=== PATIENT | female | born 1935 | race Caucasian/White ===

== ENCOUNTER → 2016-12-22 | Outpatient (REF) | payer MEDICARE, OTHER ==
[~2016-12-22] MED LIST: ASPI1TAB PO; CIPR500T89 PO; CYCL10TA PO; DITR1TAB PO; OMEP20CA3 PO; ONDA1TAB15 PO; OXYB10TA PO; VALS160T PO; VALS320T3 PO; VERA1TAB11 PO
[2016-12-22 12:15] LABS: BASO % 0.6 % (0.0-1.0); EOS # 0.2 K/mm3 (0.0-0.50); EOS % 2.7 % (0.0-3.0); LARGE UNSTAINED CELL # 0.1 K/mm3 (0.0-0.4); LARGE UNSTAINED CELL % 1.9 % (0.0-4.0); LYMPH # 1.7 K/mm3 (1.5-4.5); MEAN CORPUSCULAR HGB CONC 32.9 g/dl (32.0-36.5); MEAN CORPUSCULAR VOLUME 91.3 fl (80.0-96.0); MONO # 0.3 K/mm3 (0.0-0.8); MONO % 4.9 % (0.0-5.0); NEUTROPHILS # 4.2 K/mm3 (1.8-7.7); NEUTROPHILS % 63.8 % (36.0-66.0); PLATELET COUNT, AUTOMATED 225 k/mm3 (150-450); WHITE BLOOD COUNT 6.6 K/mm3 (4.0-10.0)
[2016-12-22 13:13] LABS: ALBUMIN 3.6 GM/DL (3.2-5.2); ALKALINE PHOSPHATASE 67 U/L (45-117); ALT/SGPT 15 U/L (12-78); ANION GAP 6 MEQ/L (8-16); AST/SGOT 12 U/L (15-37); BILIRUBIN,TOTAL 0.5 MG/DL (0.2-1.0); BLOOD UREA NITROGEN 18 MG/DL (7-18); CALCIUM LEVEL 8.9 MG/DL (8.8-10.2); CARBON DIOXIDE LEVEL 32 MEQ/L (21-32); CHLORIDE LEVEL 106 MEQ/L (98-107); CHOLESTEROL LEVEL 180 MG/DL (<200); CREATININE FOR GFR 0.66 MG/DL (0.55-1.02); GLOMERULAR FILTRATION RATE > 60.0 (>39); GLUCOSE, FASTING 84 MG/DL (83-110); SODIUM LEVEL 144 MEQ/L (136-145); TOTAL PROTEIN 7.2 GM/DL (6.4-8.2); TRIGLYCERIDES LEVEL 74 MG/DL (<150)
== END ==
LOC: M SFHCPLAZ 10:11
PROVIDERS: ATTEND Nurse Practitioner Family
DX: I10 Essential (primary) hypertension (principal); M47.816 Spondylosis without myelopathy or radiculopathy, lumbar region

== ENCOUNTER → 2017-01-30 | Outpatient (REF) | payer MEDICARE, OTHER | LOC: M LAB REF 16:05 | PROVIDERS: ATTEND Physician Assistant | DX: J02.9 Acute pharyngitis, unspecified (principal) ==

== ENCOUNTER → 2017-02-15 | Outpatient (REF) | payer MEDICARE, OTHER ==
[~2017-02-15] MED LIST changes: +AUGM500T34 PO; +FLUT11IN INH; +FLUT1SPR2; +MULTCHW13 PO; +OXYB15TA PO; +SYST1SOL OU; +ZYRT10TA2 PO
== END ==
LOC: M SFHCPLAZ 14:58
PROVIDERS: ATTEND Physician Assistant Medical
DX: J02.9 Acute pharyngitis, unspecified (principal)

== ENCOUNTER → 2017-02-20 | Outpatient (CLI) | payer MEDICARE, OTHER ==
--- NOTE | 2017-02-20 12:52 | REP ---
Clinical: Influenza . Comparison: 03/30/2016 . Technique: PA and lateral. Findings: The mediastinum and cardiac silhouette are normal. The lung marie demonstrate chronic stable interstitial changes without acute consolidation, effusion, or pneumothorax. However, lateral view cannot exclude lower lobe infiltrate and correlation is warranted. The skeletal structures are intact and normal. Impression: Lateral view cannot exclude lower lobe infiltrate and correlation is recommended. Signed by Kenton Foote MD 02/20/2017 12:43 P
[2017-02-20 14:00] LABS: BASO % 0.2 % (0.0-1.0); EOS % 0.3 % (0.0-3.0); LARGE UNSTAINED CELL # 0.1 K/mm3 (0.0-0.4); LARGE UNSTAINED CELL % 0.7 % (0.0-4.0); LYMPH % 5.9 % (24.0-44.0); MEAN CORPUSCULAR HEMOGLOBIN 30.3 pg (27.0-33.0); MEAN CORPUSCULAR HGB CONC 33.7 g/dl (32.0-36.5); MONO # 0.5 K/mm3 (0.0-0.8); MONO % 3.1 % (0.0-5.0); NEUTROPHILS # 14.2 K/mm3 (1.8-7.7); NEUTROPHILS % 89.8 % (36.0-66.0); PLATELET COUNT, AUTOMATED 379 k/mm3 (150-450); RED CELL DISTRIBUTION WIDTH 12.4 % (11.5-14.5); WHITE BLOOD COUNT 15.9 K/mm3 (4.0-10.0)
[2017-02-20 14:26] LABS: ANION GAP 9 MEQ/L (8-16); BLOOD UREA NITROGEN 19 MG/DL (7-18); CALCIUM LEVEL 9.2 MG/DL (8.8-10.2); CARBON DIOXIDE LEVEL 29 MEQ/L (21-32); CHLORIDE LEVEL 96 MEQ/L (98-107); CREATININE FOR GFR 0.79 MG/DL (0.55-1.02); GLOMERULAR FILTRATION RATE > 60.0 (>39); GLUCOSE, FASTING 94 MG/DL (83-110); POTASSIUM SERUM 4.1 MEQ/L (3.5-5.1); SODIUM LEVEL 134 MEQ/L (136-145)
== END ==
LOC: M LAB 12:05
PROVIDERS: ATTEND Nurse Practitioner Family
DX: J45.901 Unspecified asthma with (acute) exacerbation (principal); A49.2 Hemophilus influenzae infection, unspecified site

== ENCOUNTER → 2017-02-21 | Outpatient (REF) | payer MEDICARE, OTHER | LOC: M SFHCPLAZ 11:16 | PROVIDERS: ATTEND Nurse Practitioner Family | DX: A49.2 Hemophilus influenzae infection, unspecified site (principal); Z53.8 Procedure and treatment not carried out for other reasons ==

== ENCOUNTER → 2017-02-21 | Outpatient (CLI) | payer MEDICARE, OTHER ==
[2017-02-21 12:42] LABS: ALBUMIN/GLOBULIN RATIO 0.55 (1.00-1.93); ALKALINE PHOSPHATASE 72 U/L (45-117); ALT/SGPT 20 U/L (12-78); ANION GAP 6 MEQ/L (8-16); AST/SGOT 14 U/L (15-37); BILIRUBIN,TOTAL 0.6 MG/DL (0.2-1.0); BLOOD UREA NITROGEN 17 MG/DL (7-18); CALCIUM LEVEL 9.1 MG/DL (8.8-10.2); CARBON DIOXIDE LEVEL 30 MEQ/L (21-32); CHLORIDE LEVEL 96 MEQ/L (98-107); CREATININE FOR GFR 0.82 MG/DL (0.55-1.02); GLOMERULAR FILTRATION RATE > 60.0 (>39); GLUCOSE, FASTING 104 MG/DL (83-110); POTASSIUM SERUM 3.7 MEQ/L (3.5-5.1); SODIUM LEVEL 132 MEQ/L (136-145); TOTAL PROTEIN 8.5 GM/DL (6.4-8.2)
[2017-02-21 13:08] LABS: BASO % 0.3 % (0.0-1.0); EOS # 0.1 K/mm3 (0.0-0.50); EOS % 0.4 % (0.0-3.0); LARGE UNSTAINED CELL # 0.1 K/mm3 (0.0-0.4); LARGE UNSTAINED CELL % 0.8 % (0.0-4.0); LYMPH # 1.2 K/mm3 (1.5-4.5); LYMPH % 7.3 % (24.0-44.0); MEAN CORPUSCULAR HEMOGLOBIN 30.4 pg (27.0-33.0); MEAN CORPUSCULAR VOLUME 89.4 fl (80.0-96.0); MONO # 0.6 K/mm3 (0.0-0.8); MONO % 3.5 % (0.0-5.0); NEUTROPHILS % 87.7 % (36.0-66.0); PLATELET COUNT, AUTOMATED 379 k/mm3 (150-450)
== END ==
LOC: M LAB 11:34
PROVIDERS: ATTEND Nurse Practitioner Family
DX: A49.2 Hemophilus influenzae infection, unspecified site (principal)

== ENCOUNTER 2017-02-22 12:08 | Inpatient (IN) | payer MEDICARE, OTHER ==
[~2017-02-22] VITALS: Ht 170.2 cm; Wt 58.7 kg
[~2017-02-22 12:08] MED LIST changes: -AUGM500T34 PO; +CIPR-249 PO; -CIPR500T89 PO; -FLUT11IN INH; -FLUT1SPR2; -MULTCHW13 PO; -ONDA1TAB15 PO; +ONDA4TAB5 PO; -OXYB15TA PO; -SYST1SOL OU; -ZYRT10TA2 PO
[2017-02-22] MEDS ORDERED: ACETAMINOPHEN TAB 650MG DOSE (2X325MG) PO PRN (12:15)
[2017-02-22] MEDS ORDERED: ONDANSETRON 4 MG TAB (S0181) PO PRN (12:15)
[2017-02-22] MEDS ORDERED: BISACODYL 5 MG TAB PO PRN (12:15)
[2017-02-22 12:45] VITALS: BP 146/67
[2017-02-22] MEDS: methylPREDNISolone INJ 125 MG/2 ML VIAL (J2930) IV SCH ×2 (13:50→21:37)
[2017-02-22] MEDS: ENOXAPARIN 30 MG/0.3 ML SYR (J1650) SC SCH (13:50)
[2017-02-22] MEDS: cefTRIAXone SOD 1 GM in D5W MINI-BAG PLUS 50 ML IV SCH (13:50)
[2017-02-22] MEDS ORDERED: ZYRT10TA2 PO (13:54)
[2017-02-22] MEDS ORDERED: OXYB15TA PO (13:54)
[2017-02-22] MEDS ORDERED: AUGM500T34 PO (13:54)
[2017-02-22] MEDS ORDERED: VALS160T PO (13:54)
[2017-02-22] MEDS ORDERED: FLUT11IN INH (13:54)
[2017-02-22] MEDS ORDERED: FLUT1SPR2 (13:56)
[2017-02-22] MEDS ORDERED: MULTCHW14 PO (13:56)
[2017-02-22] MEDS ORDERED: SYST1SOL OU (13:59)
[2017-02-22 14:00] VITALS: BP 141/83
[2017-02-22] MEDS ORDERED: POLYVINYL ALCOHOL OPHTH SOLN 15 ML(LIQUITEARS) OU PRN (14:15)
[2017-02-22] MEDS ORDERED: FLUTICASONE PROP 0.05% NASAL SPRAY 16 GM (FLONASE) PRN (14:15)
[2017-02-22] MEDS: IPRATROPIUM 0.5MG/ALBUTEROL 2.5MG INH SOL UD 3ML (DUONEB)(J7620) NEB SCH ×2 (15:34→20:35)
--- NOTE | 2017-02-22 15:53 | REP ---
Clinical: Left lower lobe pneumonia hypoxia. Technique: PA and lateral. Comparison: 02/20/2017. Findings: Left lower lobe and possible right middle lobe atelectasis/infiltrates are again suggested. No effusion. No pneumothorax. Underlying chronic interstitial changes noted. Skeletal structures demonstrate osteopenia and degenerative changes. Impression: Continued evidence for left lower lobe and possible right middle lobe atelectasis/infiltrate. Signed by Kenton Foote MD 02/22/2017 03:39 P
[2017-02-22] MEDS: ASPIRIN 81 MG ENTERIC TAB PO SCH (16:05)
[2017-02-22] MEDS: oxyBUTYnin *DITROPAN XL* 5 MG TABCR PO SCH (16:06)
[2017-02-22] MEDS: CETIRIZINE (ZyrTEC) 10 MG TAB PO SCH (16:06)
[2017-02-22] MEDS: VERAPAMIL 180 MG SR TAB PO SCH (16:08)
[2017-02-22] MEDS: FLUTICASONE HFA 110 MCG 12 GM INHALER (FLOVENT) INH SCH (20:34)
[2017-02-22 20:50] VITALS: BP 134/69
--- NOTE | 2017-02-22 20:54 | HPE ---
DATE OF PROCEDURE: 02/22/2017 ATTENDING PHYSICIAN: Dr. Kurtis Coronado HISTORY OF THE PRESENT ILLNESS: This is a very pleasant 81-year-old female who has been complaining of upper respiratory illness since 02/09/2017. She has had multiple outpatient visits in the office with adjustments in her inhaler, as well as a trial of penicillin as an outpatient, as well as Augmentin. The patient was evaluated by myself on 02/20/2017. The patient's sputum culture returned positive for Haemophilus influenza. The patient's penicillin was changed over to amoxicillin with clavulanic acid and a chest x-ray was obtained. At that time, the patient was shown to have a potential left lower lobe pneumonia on the lateral view of her chest x-ray, was asked to return the following day with lab work. Initial set of labs on 02/20/2017 showed some hyponatremia with a sodium level of 134 and a white blood cell count of 15.9 with a shift. The patient's labs were repeated on 02/21/2017 and at that time, the patient's sodium level did lower to 132 and white blood cell count did mildly increase to 16,000. The patient was advised no free water and to not withhold her sodium. She was advised to hold her losartan with hydrochlorothiazide, she was mildly hypotensive in the office. The patient was advised to followup today with me in the office. Today, the patient states she is not improving, she is having increasing dyspnea and tachycardia, feeling heart palpitations with exertion. Denies fevers but does admit to significant amounts of fatigue and lethargy with shortness of breath and wheezing. On initial presentation to the office today, the patient's oxygen saturation dropped to 88% on room air. It did recover with rest. However, she was significantly tachycardic in the 120s with exertion. The patient does have a low-grade temperature of 99.1, with a mild improvement today of 98.5. The patient was deemed appropriate for admission as an inpatient as she has failed outpatient treatment and is now with hypoxia. PAST MEDICAL HISTORY: Significant for: 1. Hypertension. 2. Overactive bladder. 3. Osteopenia. 4. Stable pulmonary nodule on repeat CT scan. 5. Seasonal asthma with allergies. 6. Dry eye. 7. Venous insufficiency to left lower extremity. CURRENT MEDICATIONS: - Augmentin 500-125 one by mouth every 8 hours - DuoNeb every 6 hours - valsartan with hydrochlorothiazide 160-12.5 one by mouth daily - omeprazole 40 mg by mouth twice a day - Ventolin HFA two puffs every 4 hours as needed for shortness of breath - cetirizine 10 mg by mouth once daily. - Flovent 110 mcg one puff twice per day - aspirin 81 mg chewable one by mouth daily - gummy bear multivitamin one tablet daily - MiraLAX one packet mixed with 8 ounces of fluid once daily as needed - calcium with vitamin D 600-500 mg by mouth twice a day - oxybutynin chloride ER 10 mg by mouth daily - verapamil ER 180 mg by mouth daily - Patanol eye drops to each eye daily - fluticasone 50 mcg nasal spray one spray each nostril twice a day PAST SURGICAL HISTORY: Significant for: 1. Colonoscopy with Dr. Garnett in 2010. 2. Cyst removed from ankle and lower leg in 2011. 3. Cystoscopy. 4. Esophagogastroduodenoscopy (EGD) in July of [address] Ridley. HOSPITALIZATIONS: Include: Previous hospitalization March of 2016. The patient had a urinary tract infection (UTI) and significant hyponatremia at that time. FAMILY HISTORY: Father at 78 years of age due to kidney failure. Mother at 81 years of age due to cerebrovascular disease. Siblings have a history of cardiac disease. SOCIAL HISTORY: The patient is a former smoker, has not smoked cigarettes in well over 10 years. The patient drinks alcohol on a social basis, one to two drinks, two to three times per week. Denies recreational drug use. Uses one to two cups of coffee per day. Lives with her . Eats a regular diet. Walks routinely and remains very active. On physical exam, weight 126 pounds, height 67 inches, blood pressure 132/76, heart rate 126, oxygen saturation 88% with exertion, 91% resting on room air. Labs from 02/21/2017 as already stated with a white blood cell count of 16,000, neutrophils 87%. CMP shows a glucose of 104, BUN 17, creatinine 0.82, sodium level of 132, LFTs are within normal limits. General: Patient is ill appearing, however, is in no acute distress. Does appear tachypneic and mildly dyspneic. Cardiovascular: Heart rate and rhythm are regular. Pulmonary: Lungs are diminished throughout. Abdomen: Soft and nontender with positive bowel sounds times all four quadrants. Bilateral lower extremities are without any edema. Neurologic: The patient is alert and oriented, has no resting tremor appreciated. ASSESSMENT: 1. Haemophilus influenza pneumonia. 2. Hyponatremia. 3. Asthma exacerbation. SECONDARY DIAGNOSES: 1. Hypertension. 2. Allergies. 3. Overactive bladder. PLAN: The patient will be admitted with an expected two-midnight stay. She will be placed on ceftriaxone 1 gram IV every 24 hours, Tylenol as needed for pain or fever, DuoNebs every 6 hours ordered. She was placed on Solu-Medrol 80 mg IV every 8 hours. DVT prophylaxis - Lovenox 30 mg subcutaneously daily. Zofran ordered as needed for any potential nausea or vomiting. Routine medications will be continued except for her valsartan with hydrochlorothiazide secondary to her hyponatremia. Diet is a regular diet with a 1200 mL fluid restriction secondary to her hyponatremia. The patient will have a repeat chest x-ray and labs completed today. This case was discussed with Dr. Kurtis Coronado. The patient was brought to the hospital directly from the office by her in personally owned vehicle (POV). The patient verbalized understanding and agreement with plan.
[2017-02-23] MEDS: IPRATROPIUM 0.5MG/ALBUTEROL 2.5MG INH SOL UD 3ML (DUONEB)(J7620) NEB SCH ×4 (01:51→19:55)
[2017-02-23] MEDS: methylPREDNISolone INJ 125 MG/2 ML VIAL (J2930) IV SCH ×3 (05:35→21:10)
[2017-02-23 06:00] VITALS: BP 116/63
[2017-02-23 06:08] LABS: BASO % 0.1 % (0.0-1.0); EOS % 0.1 % (0.0-3.0); LARGE UNSTAINED CELL % 0.5 % (0.0-4.0); LYMPH # 0.6 K/mm3 (1.5-4.5); LYMPH % 8.2 % (24.0-44.0); MEAN CORPUSCULAR HEMOGLOBIN 30.2 pg (27.0-33.0); MEAN CORPUSCULAR VOLUME 88.8 fl (80.0-96.0); MONO # 0.1 K/mm3 (0.0-0.8); MONO % 1.3 % (0.0-5.0); NEUTROPHILS # 5.9 K/mm3 (1.8-7.7); NEUTROPHILS % 89.8 % (36.0-66.0); PLATELET COUNT, AUTOMATED 346 k/mm3 (150-450); RED CELL DISTRIBUTION WIDTH 12.2 % (11.5-14.5); WHITE BLOOD COUNT 6.6 K/mm3 (4.0-10.0)
[2017-02-23] MEDS: FLUTICASONE HFA 110 MCG 12 GM INHALER (FLOVENT) INH SCH ×2 (07:36→19:55)
[2017-02-23 07:43] LABS: ALBUMIN 2.9 GM/DL (3.2-5.2); ALBUMIN/GLOBULIN RATIO 0.53 (1.00-1.93); ALKALINE PHOSPHATASE 78 U/L (45-117); ALT/SGPT 25 U/L (12-78); ANION GAP 9 MEQ/L (8-16); AST/SGOT 13 U/L (15-37); BILIRUBIN,TOTAL 0.2 MG/DL (0.2-1.0); BLOOD UREA NITROGEN 19 MG/DL (7-18); CALCIUM LEVEL 9.7 MG/DL (8.8-10.2); CARBON DIOXIDE LEVEL 27 MEQ/L (21-32); CHLORIDE LEVEL 103 MEQ/L (98-107); CREATININE FOR GFR 0.82 MG/DL (0.55-1.02); GLOMERULAR FILTRATION RATE > 60.0 (>39); GLUCOSE, FASTING 175 MG/DL (83-110); MAGNESIUM LEVEL 2.3 MG/DL (1.8-2.4); POTASSIUM SERUM 4.3 MEQ/L (3.5-5.1); SODIUM LEVEL 139 MEQ/L (136-145); TOTAL PROTEIN 8.4 GM/DL (6.4-8.2)
[2017-02-23] MEDS: ENOXAPARIN 30 MG/0.3 ML SYR (J1650) SC SCH (09:07)
[2017-02-23] MEDS: ASPIRIN 81 MG ENTERIC TAB PO SCH (09:10)
[2017-02-23] MEDS: VERAPAMIL 180 MG SR TAB PO SCH (09:10)
[2017-02-23] MEDS: oxyBUTYnin *DITROPAN XL* 5 MG TABCR PO SCH (09:11)
[2017-02-23] MEDS: CETIRIZINE (ZyrTEC) 10 MG TAB PO SCH (09:11)
--- NOTE | 2017-02-23 12:10 | IPNPDOC ---
Subjective Date Seen The patient was seen on 02/23/17. Subjective Chief Complaint/HPI The patient is a 81-year-old female admitted with a reason for visit of Pneumonia. Events since last encounter Pt this morning is feeling better. less SOB, less cough, does have sputum production with cough. Denies fevers or chills. General: Denies: Fatigue Constitutional: Denies: Chills, Fever Pulmonary: Reports: Dyspnea, Cough Cardiovascular: Denies: Chest Pain, Palpitations Gastrointestinal: Denies: Nausea, Vomiting, Diarrhea Neurological: Reports: Weakness Psych: Reports: Mood Normal Objective Physical Examination General Exam: Positive: Alert, No Acute Distress ENT Exam: Positive: Mucous membr. moist/pink Chest Exam: Positive: Rhonchi (LLL), Wheezing, Negative: Clear to auscultation, Normal air movement Abdomen Exam: Positive: Normal bowel sounds, Soft, Negative: Tenderness Extremity Exam: Negative: Edema Psych Exam: Positive: Mental status NL, Mood NL Assessment /Plan Problems (1) Haemophilus influenzae pneumonia Status: Acute Discussed With: Nurse, Patient Problem Specific Plan: Monitor Clinically, Repeat Labs Problem Text: Has failed to improved as outpt, had been on PCN, then Augmentin , started on Rocephin IV. Cont with Duonebs. Blood culture pending, afebrile, WBC has normalized 02/22 CXR LLL, RML PN 02/15/17 SCX H influenzae sens to amox/clav (2) Asthma exacerbation Status: Acute Response to Treatment: Stable, Improving Discussed With: Patient Problem Specific Plan: Monitor Clinically Problem Text: Cont with Solumedrol 80 mg q8h, anticipate that this can be decreased tomorrow. (3) Hyponatremia Status: Resolved Response to Treatment: Stable Problem Text: Na 139 this morning. Plan/VTE VTE Prophylaxis Ordered?: Yes VS, I&O, 24H, Fishbone Vital Signs/I&O Vital Signs Date Time Temp Pulse Resp B/P (MAP) Pulse Ox O2 Delivery O2 Flow Rate FiO2 02/23/17 09:20 Room Air 02/23/17 09:10 105 128/74 02/23/17 06:00 98.1 18 95 I&O- Last 24 Hours up to 6 AM 02/23/17 05:59 Intake Total 480 ml Output Total 550 ml Balance -70 ml Laboratory Data 24H LABS Laboratory Tests 2 02/23/17 05:33: White Blood Count 6.6, Red Blood Count 4.16, Hemoglobin 12.6, Hematocrit 36.9, Mean Corpuscular Volume 88.8, Mean Corpuscular Hemoglobin 30.2, Mean Corpuscular Hemoglobin Concent 34.0, Red Cell Distribution Width 12.2, Platelet Count 346, Neutrophils (%) (Auto) 89.8H, Lymphocytes (%) (Auto) 8.2L, Monocytes (%) (Auto) 1.3, Eosinophils (%) (Auto) 0.1, Basophils (%) (Auto) 0.1, Neutrophils # (Auto) 5.9, Lymphocytes # (Auto) 0.6L, Monocytes # (Auto) 0.1, Eosinophils # (Auto) 0.0, Basophils # (Auto) 0.0, Large Unclassified Cells % 0.5 , Large Unclassified Cells # 0.0, Anion Gap 9, Glomerular Filtration Rate > 60.0 , Blood Urea Nitrogen 19H, Creatinine 0.82, Sodium Level 139#, Potassium Level 4.3, Chloride Level 103, Carbon Dioxide Level 27, Calcium Level 9.7, Aspartate Amino Transf (AST/SGOT) 13L, Alanine Aminotransferase (ALT/SGPT) 25, Alkaline Phosphatase 78, Total Bilirubin 0.2#, Total Protein 8.4H, Albumin 2.9L, Magnesium Level 2.3, Albumin/Globulin Ratio 0.53L CBC/BMP Laboratory Tests 02/23/17 05:33 Red Blood Count 4.16, Mean Corpuscular Volume 88.8, Mean Corpuscular Hemoglobin 30.2, Mean Corpuscular Hemoglobin Concent 34.0, Red Cell Distribution Width 12.2 , Neutrophils (%) (Auto) 89.8 H, Lymphocytes (%) (Auto) 8.2 L, Monocytes (%) ( Auto) 1.3, Eosinophils (%) (Auto) 0.1, Basophils (%) (Auto) 0.1, Neutrophils # ( Auto) 5.9, Lymphocytes # (Auto) 0.6 L, Monocytes # (Auto) 0.1, Eosinophils # ( Auto) 0.0, Basophils # (Auto) 0.0, Calcium Level 9.7, Aspartate Amino Transf ( AST/SGOT) 13 L, Alanine Aminotransferase (ALT/SGPT) 25, Alkaline Phosphatase 78 , Total Bilirubin 0.2 #, Total Protein 8.4 H, Albumin 2.9 L Microbiology Microbiology 02/22/17 Blood Culture, Received Pending QUINTIN ERWIN PA-C Feb 23, 2017 12:10 Kurtis Coronado M.D. Feb 23, 2017 17:11
[2017-02-23] MEDS: cefTRIAXone SOD 1 GM in D5W MINI-BAG PLUS 50 ML IV SCH (13:47)
[2017-02-23 14:00] VITALS: BP 140/64
[2017-02-23 21:15] VITALS: BP 118/57
[2017-02-24] MEDS: IPRATROPIUM 0.5MG/ALBUTEROL 2.5MG INH SOL UD 3ML (DUONEB)(J7620) NEB SCH ×4 (01:02→19:42)
[2017-02-24 05:35] VITALS: BP 165/73
[2017-02-24] MEDS: methylPREDNISolone INJ 125 MG/2 ML VIAL (J2930) IV SCH (05:42)
[2017-02-24 06:31] LABS: EOS % 0.1 % (0.0-3.0); LARGE UNSTAINED CELL # 0.1 K/mm3 (0.0-0.4); LARGE UNSTAINED CELL % 0.4 % (0.0-4.0); LYMPH # 0.9 K/mm3 (1.5-4.5); MEAN CORPUSCULAR HEMOGLOBIN 30.1 pg (27.0-33.0); MEAN CORPUSCULAR HGB CONC 33.7 g/dl (32.0-36.5); MEAN CORPUSCULAR VOLUME 89.4 fl (80.0-96.0); MONO # 0.3 K/mm3 (0.0-0.8); MONO % 1.2 % (0.0-5.0); NEUTROPHILS # 21.8 K/mm3 (1.8-7.7); NEUTROPHILS % 94.3 % (36.0-66.0); PLATELET COUNT, AUTOMATED 421 k/mm3 (150-450); RED CELL DISTRIBUTION WIDTH 12.2 % (11.5-14.5); WHITE BLOOD COUNT 23.1 K/mm3 (4.0-10.0)
[2017-02-24 07:05] LABS: ALBUMIN 2.9 GM/DL (3.2-5.2); ALBUMIN/GLOBULIN RATIO 0.57 (1.00-1.93); ALKALINE PHOSPHATASE 79 U/L (45-117); ALT/SGPT 23 U/L (12-78); ANION GAP 7 MEQ/L (8-16); AST/SGOT 12 U/L (15-37); BILIRUBIN,TOTAL 0.2 MG/DL (0.2-1.0); BLOOD UREA NITROGEN 27 MG/DL (7-18); CALCIUM LEVEL 9.5 MG/DL (8.8-10.2); CARBON DIOXIDE LEVEL 28 MEQ/L (21-32); CHLORIDE LEVEL 104 MEQ/L (98-107); CREATININE FOR GFR 0.78 MG/DL (0.55-1.02); GLOMERULAR FILTRATION RATE > 60.0 (>39); GLUCOSE, FASTING 143 MG/DL (83-110); MAGNESIUM LEVEL 2.3 MG/DL (1.8-2.4); POTASSIUM SERUM 4.9 MEQ/L (3.5-5.1); SODIUM LEVEL 139 MEQ/L (136-145)
[2017-02-24] MEDS: FLUTICASONE HFA 110 MCG 12 GM INHALER (FLOVENT) INH SCH ×2 (07:48→19:42)
[2017-02-24 09:35] VITALS: BP 138/68
[2017-02-24] MEDS: ASPIRIN 81 MG ENTERIC TAB PO SCH (09:54)
[2017-02-24] MEDS: oxyBUTYnin *DITROPAN XL* 5 MG TABCR PO SCH (09:54)
[2017-02-24] MEDS: CETIRIZINE (ZyrTEC) 10 MG TAB PO SCH (09:54)
[2017-02-24] MEDS: VERAPAMIL 180 MG SR TAB PO SCH (09:56)
[2017-02-24] MEDS: ENOXAPARIN 30 MG/0.3 ML SYR (J1650) SC SCH (09:57)
[2017-02-24 12:50] VITALS: BP 134/64
[2017-02-24] MEDS: predniSONE 20 MG TAB PO SCH (13:35)
[2017-02-24] MEDS: LevoFLOXacin 750 MG TABLET PO SCH (13:35)
--- NOTE | 2017-02-24 15:47 | IPNPDOC ---
Subjective Date Seen The patient was seen on 02/24/17. Subjective Chief Complaint/HPI The patient is a 81-year-old female admitted with a reason for visit of Pneumonia. Events since last encounter Patient states she's feeling well. Cough is improving. Denies any shortness of breath or wheezing. Denies fevers, chills, sweats, or chest pain. Constitutional: Denies: Chills, Fever, Malaise Pulmonary: Reports: Cough, Denies: Dyspnea Cardiovascular: Denies: Chest Pain, Palpitations Other systems 10 point review systems otherwise negative Objective Physical Examination General Exam: Positive: Alert, No Acute Distress ENT Exam: Positive: Mucous membr. moist/pink Chest Exam: Negative: Clear to auscultation, Normal air movement, Rhonchi, Wheezing Abdomen Exam: Positive: Normal bowel sounds, Soft, Negative: Tenderness Extremity Exam: Negative: Edema Psych Exam: Positive: Mental status NL, Mood NL Assessment /Plan Problems (1) Haemophilus influenzae pneumonia Status: Acute Discussed With: Nurse, Patient Problem Specific Plan: Monitor Clinically, Repeat Labs Problem Text: Pneumonia continues to improve. Transition to oral prednisone and Levaquin. Plan for discharge tomorrow (2) Asthma exacerbation Status: Acute Response to Treatment: Stable, Improving Discussed With: Patient Problem Specific Plan: Monitor Clinically Problem Text: Transition to by mouth prednisone 60 mg daily in anticipation for discharge (3) Hyponatremia Status: Resolved Response to Treatment: Stable Problem Text: Likely secondary to pneumonia, now resolved. Plan/VTE VTE Prophylaxis Ordered?: Yes Disposition Plan for discharge 02/25/2017 VS, I&O, 24H, Fishbone Vital Signs/I&O Vital Signs Date Time Temp Pulse Resp B/P (MAP) Pulse Ox O2 Delivery O2 Flow Rate FiO2 02/24/17 12:50 98.6 78 16 134/64 (87) 96 Room Air I&O- Last 24 Hours up to 6 AM 02/24/17 06:00 Intake Total 1250 ml Output Total 1025 ml Balance 225 ml Laboratory Data 24H LABS Laboratory Tests 2 02/24/17 06:02: White Blood Count 23.1H, Red Blood Count 3.95L, Hemoglobin 11.9L, Hematocrit 35.3L, Mean Corpuscular Volume 89.4, Mean Corpuscular Hemoglobin 30.1, Mean Corpuscular Hemoglobin Concent 33.7, Red Cell Distribution Width 12.2, Platelet Count 421, Neutrophils (%) (Auto) 94.3H, Lymphocytes (%) (Auto) 4.0L, Monocytes (%) (Auto) 1.2, Eosinophils (%) (Auto) 0.1, Basophils (%) (Auto) 0.0, Neutrophils # (Auto) 21.8H, Lymphocytes # (Auto) 0.9L, Monocytes # (Auto) 0.3, Eosinophils # (Auto) 0.0, Basophils # (Auto) 0.0, Large Unclassified Cells % 0.4 , Large Unclassified Cells # 0.1, Anion Gap 7L, Glomerular Filtration Rate > 60.0, Blood Urea Nitrogen 27H, Creatinine 0.78, Sodium Level 139, Potassium Level 4.9, Chloride Level 104, Carbon Dioxide Level 28, Calcium Level 9.5, Aspartate Amino Transf (AST/SGOT) 12L, Alanine Aminotransferase (ALT/SGPT) 23, Alkaline Phosphatase 79, Total Bilirubin 0.2, Total Protein 8.0, Albumin 2.9L, Magnesium Level 2.3, Albumin/Globulin Ratio 0.57L CBC/BMP Laboratory Tests 02/24/17 06:02 Red Blood Count 3.95 L, Mean Corpuscular Volume 89.4, Mean Corpuscular Hemoglobin 30.1, Mean Corpuscular Hemoglobin Concent 33.7, Red Cell Distribution Width 12.2, Neutrophils (%) (Auto) 94.3 H, Lymphocytes (%) (Auto) 4.0 L, Monocytes (%) (Auto) 1.2, Eosinophils (%) (Auto) 0.1, Basophils (%) (Auto ) 0.0, Neutrophils # (Auto) 21.8 H, Lymphocytes # (Auto) 0.9 L, Monocytes # ( Auto) 0.3, Eosinophils # (Auto) 0.0, Basophils # (Auto) 0.0, Calcium Level 9.5, Aspartate Amino Transf (AST/SGOT) 12 L, Alanine Aminotransferase (ALT/SGPT) 23, Alkaline Phosphatase 79, Total Bilirubin 0.2, Total Protein 8.0, Albumin 2.9 L Microbiology Microbiology 02/22/17 Blood Culture - Preliminary, Resulted No Growth after 48 hours. All Specime... VIKI PAIZ MD Feb 24, 2017 15:47
[2017-02-24 22:00] VITALS: BP 124/59
[2017-02-25] MEDS: IPRATROPIUM 0.5MG/ALBUTEROL 2.5MG INH SOL UD 3ML (DUONEB)(J7620) NEB SCH ×3 (01:25→13:26)
[2017-02-25] MEDS: LevoFLOXacin 750 MG TABLET PO SCH (05:30)
[2017-02-25 06:20] LABS: EOS % 0.1 % (0.0-3.0); LARGE UNSTAINED CELL # 0.1 K/mm3 (0.0-0.4); LARGE UNSTAINED CELL % 0.4 % (0.0-4.0); MEAN CORPUSCULAR HEMOGLOBIN 29.6 pg (27.0-33.0); MEAN CORPUSCULAR HGB CONC 33.1 g/dl (32.0-36.5); MEAN CORPUSCULAR VOLUME 89.5 fl (80.0-96.0); MONO # 0.4 K/mm3 (0.0-0.8); MONO % 2.3 % (0.0-5.0); NEUTROPHILS # 14.5 K/mm3 (1.8-7.7); NEUTROPHILS % 91.1 % (36.0-66.0); PLATELET COUNT, AUTOMATED 368 k/mm3 (150-450); RED CELL DISTRIBUTION WIDTH 12.5 % (11.5-14.5); WHITE BLOOD COUNT 15.9 K/mm3 (4.0-10.0)
[2017-02-25 06:36] LABS: ALBUMIN 2.6 GM/DL (3.2-5.2); ALBUMIN/GLOBULIN RATIO 0.58 (1.00-1.93); ALKALINE PHOSPHATASE 69 U/L (45-117); ALT/SGPT 20 U/L (12-78); ANION GAP 3 MEQ/L (8-16); AST/SGOT 8 U/L (15-37); BILIRUBIN,TOTAL 0.2 MG/DL (0.2-1.0); BLOOD UREA NITROGEN 25 MG/DL (7-18); CALCIUM LEVEL 9.1 MG/DL (8.8-10.2); CARBON DIOXIDE LEVEL 30 MEQ/L (21-32); CHLORIDE LEVEL 104 MEQ/L (98-107); CREATININE FOR GFR 0.67 MG/DL (0.55-1.02); GLOMERULAR FILTRATION RATE > 60.0 (>39); GLUCOSE, FASTING 122 MG/DL (83-110); MAGNESIUM LEVEL 2.1 MG/DL (1.8-2.4); POTASSIUM SERUM 4.1 MEQ/L (3.5-5.1); SODIUM LEVEL 137 MEQ/L (136-145); TOTAL PROTEIN 7.1 GM/DL (6.4-8.2)
[2017-02-25] MEDS: FLUTICASONE HFA 110 MCG 12 GM INHALER (FLOVENT) INH SCH (08:08)
[2017-02-25] MEDS: ASPIRIN 81 MG ENTERIC TAB PO SCH (09:00)
[2017-02-25] MEDS: CETIRIZINE (ZyrTEC) 10 MG TAB PO SCH (09:00)
[2017-02-25] MEDS: predniSONE 20 MG TAB PO SCH (09:00)
[2017-02-25 09:01] VITALS: BP 152/72
[2017-02-25] MEDS: VERAPAMIL 180 MG SR TAB PO SCH (09:01)
[2017-02-25] MEDS: ENOXAPARIN 30 MG/0.3 ML SYR (J1650) SC SCH (09:01)
[2017-02-25] MEDS: oxyBUTYnin *DITROPAN XL* 5 MG TABCR PO SCH (09:01)
[2017-02-25] MEDS ORDERED: LEVA750T7 PO (12:57)
[2017-02-25] MEDS ORDERED: PRED20TA PO (12:57)
--- NOTE | 2017-02-25 13:11 | DS.PDOC ---
Discharge Summary General Date of Admission Feb 22, 2017 at 12:34 Date of Discharge 02/25/17 Primary Care Physician: Yamile[facility] Daily ADMISSIONS CLERK Attending Physician: VIKI JANSEN MD Specialist/Consultants Involve None Discharge Summary PROCEDURES PERFORMED DURING STAY: None. ADMITTING DIAGNOSES: 1. Haemophilus influenza pneumonia 2. Hyponatremia 3. Asthma exacerbation 4. Hypertension 5. Allergies 6. Overactive bladder DISCHARGE DIAGNOSES: 1. Haemophilus influenza pneumonia, now resolving 2. Asthma exacerbation, resolving 3. Hypertension 4. Allergies 5. Overactive bladder COMPLICATIONS/CHIEF COMPLAINT: Pneumonia. HISTORY OF PRESENT ILLNESS/ Hospital course: This is a 81-year-old patient of [facility], admitted 02/22/2017 for Haemophilus influenza pneumonia without hypoxia after failing outpatient Augmentin. She presented with tachycardia and dyspnea, which is now resolved. Patient received 2 days of ceftriaxone and IV Solu-Medrol. Her symptoms improved rapidly, and she was transitioned to oral prednisone and Levaquin. At the time of discharge, the patient denied any shortness of breath or wheezing. She reports that she is currently only on an inhaled corticosteroid, mostly due to insurance denial of alternatives. She denied any fevers, chills, sweats, chest pain, or difficulty breathing. She plans to follow-up with Yvette Daily next week, and will call the clinic on Sunday. DISCHARGE MEDICATIONS: Please see below. ALLERGIES: Please see below. PHYSICAL EXAMINATION ON DISCHARGE: VITAL SIGNS: Please see below. GENERAL: Alert, comfortable, no acute distress HEENT: Sclerae clear, moist mucous membranes, no thyromegaly, no cervical adenopathy NECK: No JVD, neck supple CARDIOVASCULAR EXAMINATION: Regular rate and rhythm, S1, S2, 2/6 systolic ejection murmur throughout precordium RESPIRATORY EXAMINATION: Clear bilaterally to auscultation, no wheezes, no rales , no rhonchi; mildly decreased breath sounds and left lower lobe ABDOMINAL EXAMINATION: Nondistended, soft, nontender, + bowel sounds EXTREMITIES: No edema, no cyanosis, no clubbing SKIN: No rashes, warm and dry NEUROLOGICAL EXAMINATION: Awake, alert and oriented 3, smiling, conversant PSYCHIATRIC EXAMINATION: Normal mood and affect LABORATORY DATA: Please see below. IMAGING: CXR 02/20/2017: Demonstrated left lower lobe and possible right middle lobe atelectasis or infiltrates. PROGNOSIS: Good ACTIVITY: As tolerated. DIET: Regular. DISCHARGE PLAN: Discharge to home DISPOSITION: Self-care DISCHARGE INSTRUCTIONS: 1. Continue Levaquin for 4 days 2. Continue prednisone taper 3. Follow-up with your primary next week ITEMS TO FOLLOWUP ON ON OUTPATIENT: 1. May want to discuss if insurance would cover dual agent for her COPD, as she reports this is not well controlled DISCHARGE CONDITION: Stable. TIME SPENT ON DISCHARGE: Greater than 30 minutes. Viki Jansen MD Vital Signs/I&Os Vital Signs Date Time Temp Pulse Resp B/P (MAP) Pulse Ox O2 Delivery O2 Flow Rate FiO2 02/25/17 09:01 91 152/72 02/25/17 09:00 Room Air 02/24/17 22:00 98.7 18 93 I&O- Last 24 Hours up to 6 AM 02/25/17 05:59 Intake Total 1600 ml Output Total 750 ml Balance 850 ml Laboratory Data Labs 24H Laboratory Tests 2 02/25/17 05:36: White Blood Count 15.9H, Red Blood Count 3.72L, Hemoglobin 11.0L, Hematocrit 33.3L, Mean Corpuscular Volume 89.5, Mean Corpuscular Hemoglobin 29.6, Mean Corpuscular Hemoglobin Concent 33.1, Red Cell Distribution Width 12.5, Platelet Count 368, Neutrophils (%) (Auto) 91.1H, Lymphocytes (%) (Auto) 6.0L, Monocytes (%) (Auto) 2.3, Eosinophils (%) (Auto) 0.1, Basophils (%) (Auto) 0.0, Neutrophils # (Auto) 14.5H, Lymphocytes # (Auto) 1.0L, Monocytes # (Auto) 0.4, Eosinophils # (Auto) 0.0, Basophils # (Auto) 0.0, Large Unclassified Cells % 0.4 , Large Unclassified Cells # 0.1, Anion Gap 3L, Glomerular Filtration Rate > 60.0, Blood Urea Nitrogen 25H, Creatinine 0.67, Sodium Level 137, Potassium Level 4.1, Chloride Level 104, Carbon Dioxide Level 30, Calcium Level 9.1, Aspartate Amino Transf (AST/SGOT) 8L, Alanine Aminotransferase (ALT/SGPT) 20, Alkaline Phosphatase 69, Total Bilirubin 0.2, Total Protein 7.1, Albumin 2.6L, Magnesium Level 2.1, Albumin/Globulin Ratio 0.58L CBC/BMP Laboratory Tests 02/25/17 05:36 Red Blood Count 3.72 L, Mean Corpuscular Volume 89.5, Mean Corpuscular Hemoglobin 29.6, Mean Corpuscular Hemoglobin Concent 33.1, Red Cell Distribution Width 12.5, Neutrophils (%) (Auto) 91.1 H, Lymphocytes (%) (Auto) 6.0 L, Monocytes (%) (Auto) 2.3, Eosinophils (%) (Auto) 0.1, Basophils (%) (Auto ) 0.0, Neutrophils # (Auto) 14.5 H, Lymphocytes # (Auto) 1.0 L, Monocytes # ( Auto) 0.4, Eosinophils # (Auto) 0.0, Basophils # (Auto) 0.0, Calcium Level 9.1, Aspartate Amino Transf (AST/SGOT) 8 L, Alanine Aminotransferase (ALT/SGPT) 20, Alkaline Phosphatase 69, Total Bilirubin 0.2, Total Protein 7.1, Albumin 2.6 L Microbiology Microbiology 02/22/17 Blood Culture - Preliminary, Resulted No Growth after 48 hours. All Specime... Discharge Medications Scheduled (Valsartan/Hydrochlorothia 160-12.5 mg) 1 Tab Tab, 1 TAB PO DAILY, (Reported) (Multivitamin Gummies Adul) 1 Chw Chw, 1 CHW PO DAILY, (Reported) Aspirin (Aspirin 81) 81 Mg Tab, 81 MG PO DAILY, (Reported) Cetirizine HCl (Zyrtec Allergy) 10 Mg Tab, 10 MG PO DAILY, (Reported) Fluticasone Propionate (Flovent Hfa 110 MCG) 120 Puff/12 Gm Aero, 1 PUFF INH BID , (Reported) Levofloxacin Hemihydrate (Levaquin) 750 Mg Tab, 750 MG PO DAILY@06 Take one tablet daily until gone. Oxybutynin Chloride (Oxybutynin Chloride ER) 15 Mg Tab, 15 MG PO DAILY, ( Reported) Prednisone (Prednisone) 20 Mg Tab, 20 MG PO ASDIRECTED Take 60 mg in the AM 02/26/17, then 40 mg in the AM x 2 days, then 20 mg in the AM x 4 days Verapamil HCl (Verapamil HCl ER) 180 Mg Tab, 180 MG PO DAILY, (Reported) Scheduled PRN Fluticasone Propionate (Fluticasone Propionate 0.05%) 120 [place]/16 Gm Naspr, 1 SPRAY NA DAILY PRN for CONSTIPATION, (Reported) PER NOSTRIL Polyethylene Glycol (Systane 0.4-0.3 %) 15 Ml Tanya, 1 DROP OU PRN PRN for DRY EYES, (Reported) Allergies Coded Allergies: No Known Drug Allergy (Unverified Allergy, Mild, 12/03/12) VIKI JANSEN MD Feb 25, 2017 13:10
== END 2017-02-25 14:23 | disposition home or self-care (01) | DRG 194 ==
LOC: M MSPAV 12:34
PROVIDERS: ADMIT Family Medicine; ATTEND Family Medicine
DX: J14 Pneumonia due to Hemophilus influenzae (principal); E87.1 Hypo-osmolality and hyponatremia; J45.901 Unspecified asthma with (acute) exacerbation; I10 Essential (primary) hypertension; N32.81 Overactive bladder; M85.80 Other specified disorders of bone density and structure, unspecified site; R91.1 Solitary pulmonary nodule; I87.2 Venous insufficiency (chronic) (peripheral); H04.129 Dry eye syndrome of unspecified lacrimal gland; Z79.82 Long term (current) use of aspirin; Z79.899 Other long term (current) drug therapy; Z87.891 Personal history of nicotine dependence

== ENCOUNTER → 2017-03-19 | Outpatient (REF) | payer MEDICARE, OTHER ==
[~2017-03-19] MED LIST changes: +AUGM500T34 PO; +FLUT11IN INH; +FLUT1SPR2; +LEVA750T7 PO; +MULTCHW14 PO; +OXYB15TA PO; +PRED20TA PO; +SYST1SOL OU; +ZYRT10TA2 PO
[2017-03-19 20:02] LABS: MICROSCOPIC INDICATED? MAN YES (NO)
[2017-03-19 20:54] LABS: BACTERIA, URINE LARGE AMOUNT; HYALINE CAST, URINE NONE SEEN /lpf (0-1); SQUAMOUS EPITHELIAL CELL URINE SMALL AMOUNT /hpf (SMALL AMT); TRANSITIONAL EPI CELLS, URINE LARGE AMOUNT /hpf; WBC, URINE TNTC /hpf (0-3)
[2017-03-19 20:55] LABS: MICROSCOPIC EXAM PERFORMED
== END ==
LOC: M LAB REF 16:52
PROVIDERS: ATTEND Nurse Practitioner Women's Health
DX: N39.0 Urinary tract infection, site not specified (principal)

== ENCOUNTER → 2017-04-02 | Outpatient (CLI) | payer OTHER ==
--- NOTE | 2017-04-02 13:02 | REP ---
There is pectus excavatum , unchanged. There are no focal infiltrates. The previously identified infiltrates are no longer present. Cardiac size is normal. The ehsan and mediastinum are unremarkable. There is thoracic scoliosis convex right at the mid thoracic spine. There is an old healed fracture of the left humeral l surgical neck, unchanged. Impression: There are no infiltrates. The previous infiltrates have resolved. There are chronic stable findings as described. Signed by Juan Pablo Smith MD 04/02/2017 12:53 P
== END ==
LOC: M RAD 11:38
PROVIDERS: ATTEND Nurse Practitioner Family
DX: Z87.01 Personal history of pneumonia (recurrent) (principal); M41.84 Other forms of scoliosis, thoracic region

== ENCOUNTER → 2017-05-24 | Outpatient (REF) | payer OTHER | LOC: M SFHCPLAZ 17:15 | PROVIDERS: ATTEND Nurse Practitioner Family | DX: R35.0 Frequency of micturition (principal) | CPT/HCPCS: 81002; 87088; 87186; G0463 ==

== ENCOUNTER → 2017-06-11 | Outpatient (REF) | payer OTHER ==
[2017-06-11 16:00] LABS: BASO # 0.1 10^3/uL (0.0-0.2); BASO % 0.8 % (0.0-1.0); EOS # 0.2 10^3/uL (0.0-0.50); EOS % 2.1 % (0.0-3.0); IMMATURE GRANULOCYTE % 0.4 % (0-0); LYMPH # 2.1 10^3/uL (1.5-4.5); LYMPH % 28.7 % (24.0-44.0); MEAN CORPUSCULAR HEMOGLOBIN 29.2 pg (27.0-33.0); MEAN CORPUSCULAR HGB CONC 32.1 g/dl (32.0-36.5); MEAN CORPUSCULAR VOLUME 91.2 fl (80.0-96.0); MONO # 0.4 10^3/uL (0.0-0.8); MONO % 5.8 % (0.0-5.0); NEUTROPHILS # 4.5 10^3/uL (1.8-7.7); NEUTROPHILS % 62.2 % (36.0-66.0); PLATELET COUNT, AUTOMATED 192 10^3/uL (150-450); RED CELL DISTRIBUTION WIDTH 14.6 % (11.5-14.5); WHITE BLOOD COUNT 7.2 10^3/uL (4.0-10.0)
[2017-06-11 16:33] LABS: ALBUMIN 3.9 GM/DL (3.2-5.2); ALBUMIN/GLOBULIN RATIO 1.08 (1.00-1.93); ALKALINE PHOSPHATASE 69 U/L (45-117); ALT/SGPT 18 U/L (12-78); ANION GAP 8 MEQ/L (8-16); AST/SGOT 14 U/L (15-37); BILIRUBIN,TOTAL 0.5 MG/DL (0.2-1.0); BLOOD UREA NITROGEN 15 MG/DL (7-18); CALCIUM LEVEL 8.7 MG/DL (8.8-10.2); CARBON DIOXIDE LEVEL 29 MEQ/L (21-32); CHLORIDE LEVEL 104 MEQ/L (98-107); CREATININE FOR GFR 0.54 MG/DL (0.55-1.02); GLOMERULAR FILTRATION RATE > 60.0 (>39); GLUCOSE, FASTING 77 MG/DL (83-110); POTASSIUM SERUM 3.7 MEQ/L (3.5-5.1); SODIUM LEVEL 141 MEQ/L (136-145); TOTAL PROTEIN 7.5 GM/DL (6.4-8.2)
== END ==
LOC: M SFHCPLAZ 11:38
PROVIDERS: ATTEND Nurse Practitioner Family
DX: I10 Essential (primary) hypertension (principal); M47.816 Spondylosis without myelopathy or radiculopathy, lumbar region; K21.9 Gastro-esophageal reflux disease without esophagitis

== ENCOUNTER → 2017-07-17 | Outpatient (REF) | payer OTHER | LOC: M SMT 13:02 | PROVIDERS: ATTEND Nurse Practitioner Family | DX: N39.0 Urinary tract infection, site not specified (principal) ==

== ENCOUNTER → 2017-08-06 | Outpatient (REF) | payer OTHER | LOC: M SMT 18:02 | PROVIDERS: ATTEND Nurse Practitioner Family | DX: N39.0 Urinary tract infection, site not specified (principal) ==

== ENCOUNTER → 2017-08-08 | Outpatient (CLI) | payer OTHER ==
--- NOTE | 2017-08-08 13:51 | REPMRS ---
Patient History The patient states she had a clinical breast exam in November 2016. Patient is postmenopausal. Took unspecified hormones for 10 years. Digital Mammo Screening Bilat: August 08, 2017 - Exam #: [id number] Bilateral CC and MLO view(s) were taken. Technologist: Joselin Novak Technologist Prior study comparison: July 25, 2016, bilateral digital mammo screening bilat performed at [facility]. December 22, 2013, bilateral bilat screen digital mammo, performed at [facility] ([facility]). FINDINGS: There are scattered fibroglandular densities. Positioning and breast visualization are impaired today compared to prior study because the patient's kyphosis and interval weight loss. There has been no change in the appearance of the mammogram from the prior studies. There is a mild amount of scattered fibroglandular density which is fairly symmetric. There is no interval development of dominant mass, architectural distortion, or clustered microcalcification suggestive of malignancy. ASSESSMENT: BI-RADS/ACR category 1 mammogram. Negative. Recommendation Routine screening mammogram in 1 year (for women over age 40). This mammogram was interpreted with the aid of an FDA-approved computer-aided dectection system. Electronically Signed By: Rodolfo Hendrickson MD 08/08/17 [id number]
== END ==
LOC: M RAD 13:03
PROVIDERS: ATTEND Obstetrics & Gynecology
DX: Z12.31 Encounter for screening mammogram for malignant neoplasm of breast (principal); Z78.0 Asymptomatic menopausal state

== ENCOUNTER → 2017-09-20 | Outpatient (CLI) | payer OTHER | LOC: M SMT 14:15 | DX: J06.9 Acute upper respiratory infection, unspecified (principal) | CPT/HCPCS: 71046; 80048 ==

== ENCOUNTER → 2017-09-20 | Outpatient (REF) | payer OTHER ==
[2017-09-20 18:38] LABS: ANION GAP 5 MEQ/L (8-16); BLOOD UREA NITROGEN 16 MG/DL (7-18); CALCIUM LEVEL 8.7 MG/DL (8.8-10.2); CARBON DIOXIDE LEVEL 32 MEQ/L (21-32); CHLORIDE LEVEL 104 MEQ/L (98-107); CREATININE FOR GFR 0.66 MG/DL (0.55-1.02); GLOMERULAR FILTRATION RATE > 60.0 (>39); GLUCOSE, FASTING 94 MG/DL (70-100); POTASSIUM SERUM 3.7 MEQ/L (3.5-5.1); SODIUM LEVEL 141 MEQ/L (136-145)
[2017-09-20 20:24] LABS: BASO % 0.3 % (0.0-1.0); EOS # 0.1 10^3/uL (0.0-0.50); EOS % 0.8 % (0.0-3.0); HEMATOCRIT 37.4 % (36.0-47.0); IMMATURE GRANULOCYTE % 0.4 % (0-0); LYMPH # 2.1 10^3/uL (1.5-4.5); LYMPH % 19.8 % (24.0-44.0); MEAN CORPUSCULAR HEMOGLOBIN 29.5 pg (27.0-33.0); MEAN CORPUSCULAR HGB CONC 32.1 g/dl (32.0-36.5); MEAN CORPUSCULAR VOLUME 91.9 fl (80.0-96.0); MONO # 0.7 10^3/uL (0.0-0.8); MONO % 6.3 % (0.0-5.0); NEUTROPHILS # 7.7 10^3/uL (1.8-7.7); NEUTROPHILS % 72.4 % (36.0-66.0); PLATELET COUNT, AUTOMATED 209 10^3/uL (150-450); RED BLOOD COUNT 4.07 10^6/uL (4.00-5.40); RED CELL DISTRIBUTION WIDTH 13.1 % (11.5-14.5); WHITE BLOOD COUNT 10.7 10^3/uL (4.0-10.0)
== END ==
LOC: M SFHCPLAZ 13:22
DX: J06.9 Acute upper respiratory infection, unspecified (principal)
CPT/HCPCS: 80048

== ENCOUNTER → 2017-11-05 | Outpatient (REF) | payer OTHER ==
[2017-11-05 20:13] LABS: APPEARANCE, URINE TURBID (CLEAR); BACTERIA, URINE AUTO 3+ (NEGATIVE); BILIRUBIN, URINE AUTO NEGATIVE (NEGATIVE); BLOOD, URINE BLOOD 2+ (NEGATIVE); COLOR, URINE YELLOW (YELLOW); GLUCOSE, URINE (UA) AUTO NEGATIVE (NEGATIVE); KETONE, URINE AUTO NEGATIVE (NEGATIVE); LEUKOCYTE ESTERASE, URINE AUTO 3+ (NEGATIVE); MUCUS, URINE SMALL (NEGATIVE); NITRITE, URINE AUTO NEGATIVE (NEGATIVE); PROTEIN, URINE AUTO 2+ mg/dL (NEGATIVE); RBC, URINE AUTO 127 /HPF (0-3); SPECIFIC GRAVITY URINE AUTO 1.016 (1.002-1.035); SQUAMOUS EPITHELIAL CELL UR AU 0 /HPF (0-6); UROBILINOGEN, URINE AUTO 0.2 mg/dL (0.0-2.0); WBC, URINE AUTO TNTC /HPF (0-3)
== END ==
LOC: M SFHCPLAZ 17:10
DX: R30.0 Dysuria (principal)
CPT/HCPCS: 81001

== ENCOUNTER 2017-12-13 06:13 | Day surgery (SDC) | payer OTHER ==
[2017-12-13] MEDS ORDERED: LR 1,000 ML IV ×3 (06:15→08:45)
[2017-12-13] MEDS: LR 1,000 ML IV (06:45)
[2017-12-13] MEDS ORDERED: PROPOFOL 200 MG/20 ML VIAL As Ordered (07:09)
[2017-12-13] MEDS ORDERED: LIDOCAINE 2% INJ 100 MG/5 ML SDV (FOR ANES.) As Ordered (07:09)
[2017-12-13] MEDS ORDERED: fentaNYL 100 MCG/2 ML INJECTION (J3010) As Ordered (07:09)
[2017-12-13] MEDS ORDERED: MIDAZOLAM INJ 2 MG/2 ML VIAL (J2250) As Ordered (07:10)
[2017-12-13] MEDS ORDERED: ePHEDrine SULFATE 25 MG/5 ML(5MG/ML) SYRINGE As Ordered (07:44)
[2017-12-13] MEDS ORDERED: ONDANSETRON 4MG/2ML VIAL (J2405) As Ordered (07:48)
[2017-12-13] MEDS ORDERED: PHENYLephrine HCL 500 MCG/5 ML (100MCG/ML) SYRINGE (J2370) As Ordered (07:50)
[2017-12-13] MEDS: BOTULINUM INJ 100 UNITS (J0585) As Ordered (08:03)
[2017-12-13] MEDS: BOTULINUM INJ 100 UNITS (J0585) INJ (08:07)
[2017-12-13] MEDS ORDERED: ONDANSETRON 4MG/2ML VIAL (J2405) IV (08:30)
[2017-12-13] MEDS ORDERED: NORCO, ANEXSIA 5/325MG TABLET (HYDROcodone/ACETAMINOPHEN) PO (08:30)
[2017-12-13] MEDS ORDERED: fentaNYL 100 MCG/2 ML INJECTION (J3010) IV (08:30)
[2017-12-13] MEDS ORDERED: ACETAMINOPHEN TAB 650MG DOSE (2X325MG) PO (09:45)
== END 2017-12-13 10:37 | disposition home or self-care (01) ==
LOC: M SDC 06:13
DX: N32.81 Overactive bladder (principal); N39.41 Urge incontinence; I10 Essential (primary) hypertension; K21.9 Gastro-esophageal reflux disease without esophagitis; K44.9 Diaphragmatic hernia without obstruction or gangrene; J45.909 Unspecified asthma, uncomplicated; Z79.82 Long term (current) use of aspirin; Z79.899 Other long term (current) drug therapy
CPT/HCPCS: 52287

== ENCOUNTER → 2017-12-24 | Outpatient (REF) | payer OTHER ==
[2017-12-24 18:31] LABS: APPEARANCE, URINE TURBID (CLEAR); BACTERIA, URINE AUTO 2+ (NEGATIVE); BILIRUBIN, URINE AUTO NEGATIVE (NEGATIVE); BLOOD, URINE BLOOD NEGATIVE (NEGATIVE); COLOR, URINE AMBER (YELLOW); GLUCOSE, URINE (UA) AUTO NEGATIVE (NEGATIVE); KETONE, URINE AUTO NEGATIVE (NEGATIVE); LEUKOCYTE ESTERASE, URINE AUTO 3+ (NEGATIVE); MUCUS, URINE SMALL (NEGATIVE); NITRITE, URINE AUTO POSITIVE (NEGATIVE); PROTEIN, URINE AUTO 1+ mg/dL (NEGATIVE); RBC, URINE AUTO 69 /HPF (0-3); SPECIFIC GRAVITY URINE AUTO 1.019 (1.002-1.035); SQUAMOUS EPITHELIAL CELL UR AU 0 /HPF (0-6); TRANSITIONAL EPITHELIAL AUTO 5 /HPF; UROBILINOGEN, URINE AUTO 0.2 mg/dL (0.0-2.0); WBC, URINE AUTO TNTC /HPF (0-3)
== END ==
LOC: M LAB REF 17:42
DX: N32.81 Overactive bladder (principal); N39.41 Urge incontinence; R35.1 Nocturia
CPT/HCPCS: 81001

== ENCOUNTER → 2018-09-05 | Outpatient (CLI) | payer MEDICARE, OTHER ==
[~2018-09-05] MED LIST changes: +OMEP20TA PO; +ZYRT10CA5 PO; -ZYRT10TA2 PO
--- NOTE | 2018-09-05 14:26 | REPMRS ---
Patient History The patient states she had a clinical breast exam in November 2017.Took unspecified hormones for 10 years. Patient has lost 30 pounds due to illness. Digital Mammo Screening Bilat: September 05, 2018 - Exam #: [id number] Bilateral CC and MLO view(s) were taken. Technologist: Josselin Quevedo, Technologist Prior study comparison: August 08, 2017, bilateral digital mammo screening bilat performed at [facility]. July 25, 2016, bilateral digital mammo screening bilat performed at [facility]. June 07, 2015, bilateral digital woman screen mammo, performed at [facility]. FINDINGS: There are scattered fibroglandular densities. There has been no change in the appearance of the mammogram from the prior studies. There is a mild amount of scattered fibroglandular density which is fairly symmetric. There is no interval development of dominant mass, architectural distortion, or clustered microcalcification suggestive of malignancy. Assessment: BI-RADS/ACR category 1 mammogram. Negative. Recommendation Routine screening mammogram of both breasts in 1 year (for women over age 40). This patient's Lifetime Breast Cancer RIsk is estimated at 1.9 %. This mammogram was interpreted with the aid of an FDA-approved computer-aided dectection system. Electronically Signed By: Rodolfo Hendrickson MD 09/05/18 [id number]
== END ==
LOC: M RAD 13:14
PROVIDERS: ATTEND Obstetrics & Gynecology
DX: Z12.31 Encounter for screening mammogram for malignant neoplasm of breast (principal); R63.4 Abnormal weight loss

== ENCOUNTER → 2018-09-12 | Outpatient (REF) | payer MEDICARE, OTHER ==
[2018-09-12 14:03] LABS: BASO # 0.1 10^3/uL (0.0-0.2); BASO % 0.7 % (0.0-1.0); EOS # 0.2 10^3/uL (0.0-0.50); EOS % 2.4 % (0.0-3.0); HEMATOCRIT 36.6 % (36.0-47.0); HEMOGLOBIN 12.2 g/dl (12.0-15.5); LYMPH # 1.7 10^3/uL (1.5-4.5); LYMPH % 25.4 % (24.0-44.0); MEAN CORPUSCULAR HEMOGLOBIN 29.7 pg (27.0-33.0); MEAN CORPUSCULAR HGB CONC 33.3 g/dl (32.0-36.5); MEAN CORPUSCULAR VOLUME 89.1 fl (80.0-96.0); MONO # 0.5 10^3/uL (0.0-0.8); MONO % 7.5 % (0.0-5.0); NEUTROPHILS # 4.3 10^3/uL (1.8-7.7); NEUTROPHILS % 63.9 % (36.0-66.0); PLATELET COUNT, AUTOMATED 233 10^3/uL (150-450); RED BLOOD COUNT 4.11 10^6/uL (4.00-5.40); WHITE BLOOD COUNT 6.8 10^3/uL (4.0-10.0)
== END ==
LOC: M SFHCPLAZ 13:20
PROVIDERS: ATTEND Family Medicine
DX: M25.541 Pain in joints of right hand (principal)
CPT/HCPCS: 36415; 85025; 86200; 86431; G0463

== ENCOUNTER → 2018-09-17 | Outpatient (CLI) | payer MEDICARE, OTHER ==
--- NOTE | 2018-09-17 12:10 | REP ---
Right fingers four views History: Index finger pain There is no acute fracture or dislocation. There is narrowing of the first metacarpal phalangeal and interphalangeal joint spaces of the 1st digit. There is narrowing of the intermediate and distal interphalangeal joint spaces of the 2nd through 4th digits. Osteophytes are present at the distal interphalangeal joints of the second and third digits. Impression: Degenerative change as described above. Electronically Signed by Josias Merino MD 09/17/2018 12:01 P
== END ==
LOC: M WUC 11:42
PROVIDERS: ATTEND Family Medicine
DX: M19.041 Primary osteoarthritis, right hand (principal); M25.741 Osteophyte, right hand; M25.541 Pain in joints of right hand

== ENCOUNTER → 2018-09-30 | Outpatient (REF) | payer MEDICARE, OTHER ==
[2018-09-30 16:03] LABS: APPEARANCE, URINE CLEAR (CLEAR); BACTERIA, URINE AUTO NEGATIVE (NEGATIVE); BILIRUBIN, URINE AUTO NEGATIVE (NEGATIVE); BLOOD, URINE BLOOD NEGATIVE (NEGATIVE); COLOR, URINE YELLOW (YELLOW); GLUCOSE, URINE (UA) AUTO NEGATIVE (NEGATIVE); KETONE, URINE AUTO NEGATIVE (NEGATIVE); LEUKOCYTE ESTERASE, URINE AUTO TRACE (NEGATIVE); NITRITE, URINE AUTO NEGATIVE (NEGATIVE); PROTEIN, URINE AUTO NEGATIVE (NEGATIVE); RBC, URINE AUTO 3 /HPF (0-3); SQUAMOUS EPITHELIAL CELL UR AU 0 /HPF (0-6); UROBILINOGEN, URINE AUTO 0.2 mg/dL (0.0-2.0); WBC, URINE AUTO 16 /HPF (0-3)
== END ==
LOC: M LAB REF 14:51
PROVIDERS: ATTEND Nurse Practitioner Women's Health
DX: N39.0 Urinary tract infection, site not specified (principal)

== ENCOUNTER 2018-12-16 09:55 | Day surgery (SDC) | payer MEDICARE, OTHER ==
[~2018-12-16] VITALS: Ht 170.2 cm; Wt 60.1 kg
[~2018-12-16 09:55] MED LIST changes: +ACETAMINOPHEN 325 MG TAB PO PRN; -ASPI1TAB PO; +ASPI81TA26 PO; +BSS with VANC/TOB/EPI for EYE CASES IR ONE; +CYCLOPENTOLATE 2% OPHTH SOLN 2ML BTL OS ONE; +DETR1TAB5 PO; +HEALON DUET PRO(HEALON 10MG/ML 0.55ML & HEALON ENDOCOAT 30MG/ML 0.85ML) As Ordered ONE; +IBUP-1114 PO; +LIDOCAINE 1% SDV 5 ML VIAL As Ordered ONE; +LIDOCAINE 3.5 % 1ML OPHTH TOPICAL GEL OU ONE; +MIDAZOLAM INJ 2 MG/2 ML VIAL (J2250) As Ordered ONE; +MOXIFLOXACIN IN BSS 0.25MG/0.25ML INTRACAMERAL INJ (OR EYE ONLY)(J2280) As Ordered ONE; +OFLOXACIN 0.3 % (OCUFLOX) OPTH SOL 5ML OS ONE; +PHENYLEPHRINE 2.5% OPHTH SOL 2ML OS ONE; +PHENYLEPHRINE HCL 10 % OPHTH. SOL 5ML OS PRN; +POVIDONE-IODINE 5% OPHTH PREP SOL 30ML As Ordered ONE; +TRIAMCINOLONE PRES FR 40 MG/ML 1ML(TRIESENCE)(OR EYE ONLY)(J3300 PER 1MG) As Ordered ONE; +TROPICAMIDE 1% OPHTH SOLN 2ML OS ONE; +VERA180T3 PO; -VERA1TAB11 PO; +fentaNYL 100 MCG/2 ML INJECTION (J3010) As Ordered ONE
[2018-12-16] MEDS ORDERED: LIDOCAINE 2% W/EPIN INJ 20ML **PRES FREE XX ONE (12:02)
[2018-12-16] MEDS ORDERED: AcetaZOLAMIDE 500 MG ER CAP As Ordered ONE (12:29)
[2018-12-16] MEDS ORDERED: TRIMETHOBENZAMIDE 300 MG CAP PO PRN (12:45)
[2018-12-16 13:25] VITALS: BP 166/77
[2018-12-16] MEDS ORDERED: AcetaZOLAMIDE 500 MG ER CAP PO ONE (14:00)
== END 2018-12-16 13:40 | disposition home or self-care (01) ==
LOC: M SDC 09:55
PROVIDERS: ATTEND Ophthalmology
DX: H25.9 Unspecified age-related cataract (principal); I10 Essential (primary) hypertension; J45.909 Unspecified asthma, uncomplicated; K44.9 Diaphragmatic hernia without obstruction or gangrene; K21.9 Gastro-esophageal reflux disease without esophagitis; Z79.899 Other long term (current) drug therapy; Z79.82 Long term (current) use of aspirin
CPT/HCPCS: 66984; 92015; J2250; J2280; J3010; J3300; V2632

== ENCOUNTER → 2019-01-06 | Outpatient (REF) | payer MEDICARE, OTHER ==
[~2019-01-06] MED LIST changes: -ACETAMINOPHEN 325 MG TAB PO PRN; -BSS with VANC/TOB/EPI for EYE CASES IR ONE; -CYCLOPENTOLATE 2% OPHTH SOLN 2ML BTL OS ONE; -HEALON DUET PRO(HEALON 10MG/ML 0.55ML & HEALON ENDOCOAT 30MG/ML 0.85ML) As Ordered ONE; -LIDOCAINE 1% SDV 5 ML VIAL As Ordered ONE; -LIDOCAINE 3.5 % 1ML OPHTH TOPICAL GEL OU ONE; -MIDAZOLAM INJ 2 MG/2 ML VIAL (J2250) As Ordered ONE; -MOXIFLOXACIN IN BSS 0.25MG/0.25ML INTRACAMERAL INJ (OR EYE ONLY)(J2280) As Ordered ONE; -OFLOXACIN 0.3 % (OCUFLOX) OPTH SOL 5ML OS ONE; -PHENYLEPHRINE 2.5% OPHTH SOL 2ML OS ONE; -PHENYLEPHRINE HCL 10 % OPHTH. SOL 5ML OS PRN; -POVIDONE-IODINE 5% OPHTH PREP SOL 30ML As Ordered ONE; -TRIAMCINOLONE PRES FR 40 MG/ML 1ML(TRIESENCE)(OR EYE ONLY)(J3300 PER 1MG) As Ordered ONE; -TROPICAMIDE 1% OPHTH SOLN 2ML OS ONE; -fentaNYL 100 MCG/2 ML INJECTION (J3010) As Ordered ONE
[2019-01-06 18:06] LABS: ALBUMIN 3.9 GM/DL (3.2-5.2); ALT/SGPT 17 U/L (12-78); BILIRUBIN,TOTAL 0.6 MG/DL (0.2-1.0); BLOOD UREA NITROGEN 23 MG/DL (7-18); CALCIUM LEVEL 8.7 MG/DL (8.8-10.2); CARBON DIOXIDE LEVEL 32 MEQ/L (21-32); CHLORIDE LEVEL 103 MEQ/L (98-107); CHOLESTEROL LEVEL 175 MG/DL (<200); GLOMERULAR FILTRATION RATE > 60.0 (>32); GLUCOSE, FASTING 96 MG/DL (70-100); HDL CHOLESTEROL 72 MG/DL (>40); LDL CHOLESTEROL 90 MG/DL (<100); NON-HDL-C 103 MG/DL; POTASSIUM SERUM 3.7 MEQ/L (3.5-5.1); SODIUM LEVEL 139 MEQ/L (136-145); TOTAL PROTEIN 7.1 GM/DL (6.4-8.2); TRIGLYCERIDES LEVEL 65 MG/DL (<150)
== END ==
LOC: M SFHCPLAZ 12:55
PROVIDERS: ATTEND Nurse Practitioner Family
DX: I10 Essential (primary) hypertension (principal)

== ENCOUNTER → 2019-01-08 | Outpatient (REF) | payer MEDICARE, OTHER ==
[2019-01-08 16:38] LABS: MAU/CREAT RATIO 13.1 MCG/MG (0.0-30.0)
== END ==
LOC: M SFHCPLAZ 15:41
PROVIDERS: ATTEND Family Medicine
DX: I10 Essential (primary) hypertension (principal)
CPT/HCPCS: 82043; G0463

== ENCOUNTER 2019-01-13 07:52 | Day surgery (SDC) | payer MEDICARE, OTHER ==
[~2019-01-13] VITALS: Ht 170.2 cm; Wt 59.0 kg
[~2019-01-13 07:52] MED LIST changes: +ACETAMINOPHEN 325 MG TAB PO PRN; +BSS with VANC/TOB/EPI for EYE CASES IR ONE; +CYCLOPENTOLATE 2% OPHTH SOLN 2ML BTL OD ONE; +HEALON DUET PRO(HEALON 10MG/ML 0.55ML & HEALON ENDOCOAT 30MG/ML 0.85ML) As Ordered ONE; +LIDOCAINE 1% SDV 5 ML VIAL As Ordered ONE; +LIDOCAINE 3.5 % 1ML OPHTH TOPICAL GEL OU ONE; +MIDAZOLAM INJ 2 MG/2 ML VIAL (J2250) As Ordered ONE; +MOXIFLOXACIN IN BSS 0.25MG/0.25ML INTRACAMERAL INJ (OR EYE ONLY)(J2280) As Ordered ONE; +OFLOXACIN 0.3 % (OCUFLOX) OPTH SOL 5ML OD ONE; +PHENYLEPHRINE 2.5% OPHTH SOL 2ML OD ONE; +PHENYLEPHRINE HCL 10 % OPHTH. SOL 5ML OD PRN; +POVIDONE-IODINE 5% OPHTH PREP SOL 30ML As Ordered ONE; +TRIAMCINOLONE PRES FR 40 MG/ML 1ML(TRIESENCE)(OR EYE ONLY)(J3300 PER 1MG) As Ordered ONE; +TROPICAMIDE 1% OPHTH SOLN 2ML OD ONE
[2019-01-13] MEDS ORDERED: TETRACAINE 0.5% OPHTH SOLN 4ML As Ordered ONE (11:12)
[2019-01-13] MEDS ORDERED: fentaNYL 100 MCG/2 ML INJECTION (J3010) As Ordered ONE (11:12)
[2019-01-13 11:50] VITALS: BP 138/74
[2019-01-13] MEDS ORDERED: TRIMETHOBENZAMIDE 300 MG CAP PO PRN (12:00)
[2019-01-13] MEDS ORDERED: AcetaZOLAMIDE 500 MG ER CAP PO ONE (12:00)
== END 2019-01-13 12:15 | disposition home or self-care (01) ==
LOC: M SDC 07:52
PROVIDERS: ATTEND Ophthalmology
DX: H25.9 Unspecified age-related cataract (principal); I10 Essential (primary) hypertension; K44.9 Diaphragmatic hernia without obstruction or gangrene; K21.9 Gastro-esophageal reflux disease without esophagitis; J45.909 Unspecified asthma, uncomplicated; M81.0 Age-related osteoporosis without current pathological fracture; Z79.899 Other long term (current) drug therapy
CPT/HCPCS: 66984; 92015; J2250; J2280; J3010; J3300; V2632

== ENCOUNTER 2019-02-13 10:37 | Day surgery (SDC) | payer MEDICARE, OTHER ==
[~2019-02-13] VITALS: Ht 170.2 cm; Wt 56.7 kg
[~2019-02-13 10:37] MED LIST changes: -ACETAMINOPHEN 325 MG TAB PO PRN; +BOTULINUM INJ 100 UNITS (J0585) INJ ONE; -BSS with VANC/TOB/EPI for EYE CASES IR ONE; -CYCLOPENTOLATE 2% OPHTH SOLN 2ML BTL OD ONE; -HEALON DUET PRO(HEALON 10MG/ML 0.55ML & HEALON ENDOCOAT 30MG/ML 0.85ML) As Ordered ONE; -LIDOCAINE 1% SDV 5 ML VIAL As Ordered ONE; -LIDOCAINE 3.5 % 1ML OPHTH TOPICAL GEL OU ONE; +LR 1,000 ML IV SCH; -MIDAZOLAM INJ 2 MG/2 ML VIAL (J2250) As Ordered ONE; -MOXIFLOXACIN IN BSS 0.25MG/0.25ML INTRACAMERAL INJ (OR EYE ONLY)(J2280) As Ordered ONE; -OFLOXACIN 0.3 % (OCUFLOX) OPTH SOL 5ML OD ONE; -PHENYLEPHRINE 2.5% OPHTH SOL 2ML OD ONE; -PHENYLEPHRINE HCL 10 % OPHTH. SOL 5ML OD PRN; -POVIDONE-IODINE 5% OPHTH PREP SOL 30ML As Ordered ONE; -TRIAMCINOLONE PRES FR 40 MG/ML 1ML(TRIESENCE)(OR EYE ONLY)(J3300 PER 1MG) As Ordered ONE; -TROPICAMIDE 1% OPHTH SOLN 2ML OD ONE
[2019-02-13] MEDS ORDERED: AMOX875T PO (11:23)
[2019-02-13] MEDS ORDERED: MIDAZOLAM INJ 2 MG/2 ML VIAL (J2250) As Ordered ONE (12:29)
[2019-02-13] MEDS ORDERED: PROPOFOL 200 MG/20 ML VIAL As Ordered ONE (12:29)
[2019-02-13] MEDS ORDERED: LIDOCAINE 2% INJ 100 MG/5 ML SDV (FOR ANES.) As Ordered ONE (12:29)
[2019-02-13] MEDS ORDERED: dexameTHASONE 4 MG/ML 1ML VIAL (J1100) As Ordered ONE (12:29)
[2019-02-13] MEDS ORDERED: ONDANSETRON 4MG/2ML VIAL (J2405) As Ordered ONE (12:29)
[2019-02-13] MEDS ORDERED: fentaNYL 100 MCG/2 ML INJECTION (J3010) As Ordered ONE (12:29)
[2019-02-13] MEDS ORDERED: KETOROLAC 60 MG/2 ML VIAL (J1885) As Ordered ONE (12:29)
[2019-02-13] MEDS ORDERED: BOTULINUM INJ 100 UNITS (J0585) As Ordered ONE (14:16)
[2019-02-13] MEDS ORDERED: fentaNYL 100 MCG/2 ML INJECTION (J3010) IV PRN (16:15)
[2019-02-13] MEDS ORDERED: IBUPROFEN 600 MG TAB PO PRN (16:15)
[2019-02-13] MEDS ORDERED: LR 1,000 ML IV SCH ×2 (16:15)
[2019-02-13 17:00] VITALS: BP 179/85
--- NOTE | 2019-02-15 10:23 | RO ---
DATE OF PROCEDURE: 02/13/2019 PREOPERATIVE DIAGNOSIS/INDICATION FOR SURGERY: Urinary incontinence with previous successful Botox therapy. POSTOPERATIVE DIAGNOSIS: Urinary incontinence with previous successful Botox therapy. FINDINGS: As expected. PROCEDURE: Cystourethroscopy with Botox chemodenervation of the bladder. SURGEON: Sandra Darby MD PRODUCTION DEPARTMENT SUPERVISOR: None. ANESTHESIA: Laryngeal mask airway (LMA). BRIEF DESCRIPTION OF PROCEDURE AND FINDINGS: Yara was brought to the operating room where sufficient LMA anesthesia was induced and she was prepped, draped and positioned in the usual sterile fashion. With the cystoscope placed, we first used the 70 degree and evaluated the bladder. She does have a little bit of changes consistent with age and her current illness and a small caruncle and none of these are new findings. We then switched out to a 30 degree and injected 100 units of Botox in multiple sites using saline as a chaser to clear the needle, so she got the full dose. After the injection we took some pictures to document our findings and the procedure was ended. ESTIMATED BLOOD LOSS: None. FLUID REPLACEMENT: Crystalloid. COMPLICATIONS: None. CONDITION AND DISPOSITION: Yara tolerated the procedure well and was recovering in the recovery room in good condition.
== END 2019-02-13 17:10 | disposition home or self-care (01) ==
LOC: M SDC 10:37
PROVIDERS: ATTEND Obstetrics & Gynecology
DX: N39.3 Stress incontinence (female) (male) (principal); N32.81 Overactive bladder; I10 Essential (primary) hypertension; K44.9 Diaphragmatic hernia without obstruction or gangrene; K21.9 Gastro-esophageal reflux disease without esophagitis; J45.909 Unspecified asthma, uncomplicated; Z79.899 Other long term (current) drug therapy; Z87.891 Personal history of nicotine dependence
CPT/HCPCS: 52287; J0585; J0690; J1100; J1885; J2250; J2405; J3010

== ENCOUNTER → 2019-02-26 | Outpatient (REF) | payer MEDICARE, OTHER ==
[~2019-02-26] MED LIST changes: +AMOX875T PO; -BOTULINUM INJ 100 UNITS (J0585) INJ ONE; -LR 1,000 ML IV SCH; -OMEP20CA3 PO; +OMEP20CA4 PO
[2019-02-26 19:06] LABS: APPEARANCE, URINE HAZY (CLEAR); BACTERIA, URINE AUTO NEGATIVE (NEGATIVE); BILIRUBIN, URINE AUTO NEGATIVE (NEGATIVE); BLOOD, URINE BLOOD NEGATIVE (NEGATIVE); COLOR, URINE AMBER (YELLOW); GLUCOSE, URINE (UA) AUTO NEGATIVE (NEGATIVE); KETONE, URINE AUTO TRACE mg/dL (NEGATIVE); LEUKOCYTE ESTERASE, URINE AUTO 1+ (NEGATIVE); MUCUS, URINE LARGE (NEGATIVE); NITRITE, URINE AUTO NEGATIVE (NEGATIVE); PROTEIN, URINE AUTO NEGATIVE (NEGATIVE); RBC, URINE AUTO 4 /HPF (0-3); SPECIFIC GRAVITY URINE AUTO 1.013 (1.002-1.035); SQUAMOUS EPITHELIAL CELL UR AU 1 /HPF (0-6); UROBILINOGEN, URINE AUTO 0.2 mg/dL (0.0-2.0); WBC, URINE AUTO 18 /HPF (0-3)
== END ==
LOC: M LAB REF 16:17
PROVIDERS: ATTEND Obstetrics & Gynecology
DX: N39.0 Urinary tract infection, site not specified (principal)

== ENCOUNTER → 2019-03-24 | Outpatient (REF) | payer MEDICARE, OTHER ==
[2019-03-24 12:11] LABS: MAGNESIUM LEVEL 2.1 MG/DL (1.8-2.4); THYROID STIMULATING HORMONE 1.55 uIU/ML (0.358-3.740)
== END ==
LOC: M SFHCPLAZ 09:54
PROVIDERS: ATTEND Family Medicine
DX: G62.9 Polyneuropathy, unspecified (principal); I10 Essential (primary) hypertension
CPT/HCPCS: 82607; 83735; 84443; G0463

== ENCOUNTER → 2019-04-25 | Outpatient (REF) | payer MEDICARE, OTHER ==
[~2019-04-25] MED LIST changes: -OXYB10TA PO; +OXYB10TA2 PO
[2019-04-25 10:37] LABS: BLOOD UREA NITROGEN 19 MG/DL (7-18); CALCIUM LEVEL 8.6 MG/DL (8.8-10.2); CARBON DIOXIDE LEVEL 33 MEQ/L (21-32); CHLORIDE LEVEL 106 MEQ/L (98-107); CREATININE FOR GFR 0.68 MG/DL (0.55-1.30); GLOMERULAR FILTRATION RATE > 60.0 (>32); GLUCOSE, FASTING 80 MG/DL (70-100); POTASSIUM SERUM 3.7 MEQ/L (3.5-5.1); SODIUM LEVEL 142 MEQ/L (136-145)
== END ==
LOC: M SFHCPLAZ 07:46
PROVIDERS: ATTEND Family Medicine
DX: I10 Essential (primary) hypertension (principal)
CPT/HCPCS: 36415; 80048; G0463

== ENCOUNTER → 2019-05-26 | Outpatient (REF) | payer MEDICARE, OTHER ==
[~2019-05-26] MED LIST changes: +OMEP-358 PO; -OMEP20TA PO
[2019-05-26 12:17] LABS: BLOOD UREA NITROGEN 16 MG/DL (7-18); CALCIUM LEVEL 8.8 MG/DL (8.8-10.2); CARBON DIOXIDE LEVEL 32 MEQ/L (21-32); CHLORIDE LEVEL 104 MEQ/L (98-107); CREATININE FOR GFR 0.69 MG/DL (0.55-1.30); GLOMERULAR FILTRATION RATE > 60.0 (>32); GLUCOSE, FASTING 93 MG/DL (70-100); POTASSIUM SERUM 3.5 MEQ/L (3.5-5.1); SODIUM LEVEL 142 MEQ/L (136-145)
== END ==
LOC: M SFHCPLAZ 10:14
PROVIDERS: ATTEND Family Medicine
DX: I10 Essential (primary) hypertension (principal)
CPT/HCPCS: 36415; 80048; 90682; G0008; G0463

== ENCOUNTER → 2019-08-05 | Outpatient (CLI) | payer MEDICARE, OTHER ==
[~2019-08-05] MED LIST changes: +OMEP-172 PO; -OMEP20CA4 PO; -OXYB15TA PO; +OXYB1TAB13 PO
--- NOTE | 2019-08-05 17:00 | REPPI ---
Chest x-ray: Two views. History: Cough. Comparison chest x-ray: September 20, 2017. Findings: There is a mild S-shaped thoracic scoliotic curve unchanged. Pectus deformity is seen on lateral radiograph. Heart size is unchanged. No infiltrate is seen in the lung marie. Pleural angles are sharp. Pulmonary vasculature is not increased. Impression: Scoliosis and pectus excavatum. Otherwise no acute disease. No infiltrate noted. Electronically Signed by Hi Hendrickson MD 08/05/2019 05:22 P
== END ==
LOC: M PLAIMG 14:46
PROVIDERS: ATTEND Family Medicine
DX: Q67.6 Pectus excavatum (principal); R05 Cough
CPT/HCPCS: 71046; G0463

== ENCOUNTER → 2019-09-03 | Outpatient (CLI) | payer MEDICARE, OTHER | LOC: M WHC 12:52 | PROVIDERS: ATTEND Family Medicine | DX: M81.0 Age-related osteoporosis without current pathological fracture (principal) ==

== ENCOUNTER → 2019-10-03 | Outpatient (CLI) | payer MEDICARE, OTHER ==
[~2019-10-03] MED LIST changes: -OMEP-172 PO; +OMEP1CAP73 PO; +ONDA-83 PO; -ONDA4TAB5 PO; -OXYB10TA2 PO; +OXYB10TA23 PO; +OXYB15TA14 PO; -OXYB1TAB13 PO; -VALS160T PO; +VALS160T2 PO
--- NOTE | 2019-10-03 14:59 | REP ---
BILATERAL SCREENING DIGITAL MAMMOGRAM WITH 3D TOMOSYNTHESIS: There are no palpable abnormalities or other breast complaints. The the patient states she had a clinical breast examination october,. The Tyrer-Cuzick Lifetime Breast Cancer Risk Score is: 1.5% . Comparisons are 12/22/2013, 07/25/2016 and 06/05/2019. Because of the patient's condition it is difficult to position the breasts over the imaging screen. Tomograms could only be performed in the MLO position. There are scattered areas of fibroglandular density. There is no dominant mass, micro calcific cluster or architectural distortion that would indicate malignancy. There are no additional findings on 3D tomosynthesiss. There is no change from the prior study. Impression: BIRADS/ACR category 1 mammogram. Negative. Recommendation: Routine annual screening mammography. This mammogram was interpreted with the aid of a FDA approved computer-aided detection system. A. Negative mammogram reports should not delay biopsy if a dominant or clinically suspicious mass is present. B. Not all breast cancers are identified by mammography or tomosynthesis. C. Adenosis and dense breasts may obscure an underlying neoplasm. Patient letter M1. Electronically Signed by Juan Pablo Smith MD 10/03/2019 02:51 P
== END ==
LOC: M WHC 12:45
PROVIDERS: ATTEND Obstetrics & Gynecology
DX: Z12.31 Encounter for screening mammogram for malignant neoplasm of breast (principal)

== ENCOUNTER 2019-12-30 13:44 | Inpatient (IN) | payer MEDICARE, OTHER ==
[~2019-12-30] VITALS: Ht 170.2 cm; Wt 61.5 kg
[~2019-12-30 13:44] MED LIST changes: +CYCL-707 PO; -CYCL10TA PO
[2019-12-30] MEDS ORDERED: TOLT2TAB12 PO (13:52)
[2019-12-30] MEDS ORDERED: VALS80TA PO (13:52)
[2019-12-30] MEDS ORDERED: MORPHINE 2 MG/ML 1ML VIAL (J2270) IV PRN ×2 (14:15→17:00)
[2019-12-30] MEDS ORDERED: NS 1,000 ML IV ONE (15:00)
[2019-12-30 15:05] LABS: BASO % 0.3 % (0.0-1.0); EOS % 0.2 % (0.0-3.0); HEMATOCRIT 37.6 % (36.0-47.0); HEMOGLOBIN 12.5 g/dl (12.0-15.5); LYMPH # 0.8 10^3/uL (1.5-5.0); LYMPH % 6.7 % (24.0-44.0); MEAN CORPUSCULAR HEMOGLOBIN 30.5 pg (27.0-33.0); MEAN CORPUSCULAR HGB CONC 33.2 g/dl (32.0-36.5); MEAN CORPUSCULAR VOLUME 91.7 fl (80.0-96.0); MONO # 0.6 10^3/uL (0.0-0.8); NEUTROPHILS # 10.1 10^3/uL (1.5-8.5); NEUTROPHILS % 87.4 % (36.0-66.0); PLATELET COUNT, AUTOMATED 169 10^3/uL (150-450); WHITE BLOOD COUNT 11.5 10^3/uL (4.0-10.0)
[2019-12-30 15:15] LABS: INR 1.08; PARTIAL THROMBOPLASTIN TIME 29.3 SECONDS (25.0-38.4); PROTHROMBIN TIME 13.7 SECONDS (11.8-14.0)
--- NOTE | 2019-12-30 15:15 | REP ---
PELVIS AND RIGHT HIP: AP view of the pelvis and two views of the right hip are performed. There is a fracture of the right femoral neck which is mildly displaced. I see no other evidence of acute fracture or dislocation. There are mild degenerative changes at the hips and sacroiliac joints. There are degenerative changes of the lower lumbar spine. IMPRESSION: Mildly displaced right femoral neck fracture. Electronically Signed by Juan Pablo Cannon MD 12/30/2019 03:55 P
--- NOTE | 2019-12-30 15:18 | REP ---
RIGHT FEMUR, AP AND LATERAL: AP and lateral views of the right femur are performed. There is a right femoral neck fracture, which is mildly displaced. The remaining femur is intact. Mild sclerotic density in the distal femoral shaft may represent small enchondroma or bone infarct. There are diffuse vascular calcifications. IMPRESSION: Right femoral neck fracture. Electronically Signed by Juan Pablo Cannon MD 12/30/2019 03:55 P
--- NOTE | 2019-12-30 15:19 | REP ---
CHEST X-RAY: Single view. HISTORY: Injury in a fall. COMPARISON CHEST X-RAY: September 20, 2017. FINDINGS: The lungs are somewhat hyperinflated. No infiltrate is seen. Heart size is borderline unchanged. Pulmonary vasculature is not increased. There is no evidence of pneumothorax or hydrothorax. No rib or other fracture is appreciated. There are degenerative changes in the left shoulder and to a lesser extent the right shoulder. A mild scoliosis is seen in the thoracolumbar spine. IMPRESSION: Hyperinflation and mildly prominent heart. Otherwise no acute disease. Electronically Signed by Hi Hendrickson MD 12/30/2019 04:41 P
[2019-12-30 15:36] LABS: BLOOD UREA NITROGEN 20 MG/DL (7-18); CARBON DIOXIDE LEVEL 27 MEQ/L (21-32); CHLORIDE LEVEL 101 MEQ/L (98-107); CK-MB VALUE MASS 2.2 NG/ML (<3.6); CPK CREATINE PHOSPHOKINASE 65 U/L (26-192); CREATININE FOR GFR 0.67 MG/DL (0.55-1.30); GLOMERULAR FILTRATION RATE > 60.0 (>32); GLUCOSE, FASTING 82 MG/DL (70-100); MB/CK RELATIVE INDEX 3.38 (< OR =4); POTASSIUM SERUM 2.9 MEQ/L (3.5-5.1); SODIUM LEVEL 135 MEQ/L (136-145); TROPONIN I < 0.02 NG/ML (< 0.10)
--- NOTE | 2019-12-30 15:36 | HPEPDOC ---
[facility] Medical History & Physical Date of Admission December 30, 2019 Date of Service: December 30, 2019 Primary Care Physician: ADOLFO OCONNELL MD Attending Physician: Karin Bales MD History and Physical CHIEF COMPLAINT: Fall, right hip pain HISTORY OF PRESENT ILLNESS: Patient is an 84 y/o F with PMH of osteoporosis, HTN, overactive bladder who presented to [facility] after fall and ongoing right hip pain. As per patient, at 10:45 this AM she was going to get in the car and she fell, landing on her right hip. Her helped her into the car. Pain was sharp, 10/10, intermi ttent worse with movement, no relieving factors. Patient then went about errands in the car with her . time went on, pain became more severe. She felt as if something was "unhinged". She attempted to get out of the car but could not. She called her PCP who advised her to come to the ER. Patient denies lightheadedness, dizziness, weakness, lethargy prior to this event. In the ER, VS showed patient hypertensive with BP 190-219/93-106, others stable. ROS as described below. CXR NAD. Femur XR showed mildly displaced right femoral neck fracture. Potassium low at 2.9. She was given 10 mg IV hydralazine, 1 mg morphine which improved pain to 5/10 on pain scale. Orthopedic surgery was blair led and will see patient. Patient was admitted for displaced right femoral neck fracture likely needing surgery, ambulatory dysfunction. REVIEW OF SYSTEMS: CONSTITUTIONAL: Denies lack of energy, unexplained weight gain or weight loss, loss of appetite, fever, night sweats EYES: Denies eye drainage, eye pain, visual changes, dry/irritated eye EARS, NOSE, MOUTH, THROAT: Denies difficulty hearing, ringing in ears, mouth sores, loose teeth, sore throat, facial numbness or pain NECK: Denies swollen glands CARDIOVASCULAR: Denies irregular heartbeat, racing heart, chest pains, swelling of feet or legs, pain in legs with walking RESPIRATORY: Denies shortness of breath, night sweats, wheezing, sputum production, oxygen at home, coughing up blood, cough lasting > 1 month GASTROINTESTINAL: Denies abdominal pain, constipation, bloody stool, diarrhea, heartburn, nausea, vomiting GENITOURINARY: Denies painful urination, bloody urine, frequent urination, urgency, leaking urine, impotence MUSCULOSKELETAL: Denies joint pain, muscle pain, leg swelling INTEGUMENTARY: Denies rash, itching, new skin lesion, change in existing skin lesion, hair loss or increase, breast changes. NEUROLOGICAL: Denies headaches, dizziness, difficulty walking, numbness or tingling PSYCHIATRIC: Denies depression, anxiety, recurrent bad thoughts, mood swings, hallucinations PAST MEDICAL HISTORY: 1. Hypertension. 2. Overactive bladder. 3. Osteopenia. 4. Stable pulmonary nodule on repeat CT scan. 5. Seasonal asthma with allergies. 6. Dry eye. 7. Venous insufficiency to left lower extremity. 8. GERD PAST SURGICAL HISTORY: 1. Colonoscopy with Dr. Garnett in 2010. 2. Cyst removed from ankle and lower leg in 2011. 3. Cystoscopy. 4. Esophagogastroduodenoscopy (EGD) in July of [address] Ridley. FAMILY HISTORY: Father at 78 years of age due to kidney failure. Mother at 81 years of age due to cerebrovascular disease. Siblings have a history of cardiac disease. SOCIAL HISTORY: The patient is a former smoker, has not smoked cigarettes in well over 10 years. The patient drinks alcohol on a social basis, one to two drinks, two to three times per week. Denies recreational drug use. Uses one to two cups of coffee per day. Lives with her . Eats a regular diet. Walks routinely and remains very active. ALLERGIES: Please see below. HOME MEDICATIONS: Please see below. PHYSICAL EXAMINATION: CONSTITUTIONAL: No acute distress, resting comfortably, AAO x 3 EYES: PERRLA, EOM intact HENT, MOUTH: Normocephalic, atraumatic, moist mucous membranes, NECK: SUPPLE, no JVD, no lymphadenopathy, no carotid bruit CV: Regular rate and rhythm, S1S2 normal, no murmurs/rubs/gallops RESPIRATORY: Clear to auscultation bilaterally, no rales/rhonchi/wheezes GI: BS positive in 4 quadrants, soft, nontender, nondistended, no rebound or guarding, no organomegaly : Deferred MUSCULOSKELETAL: ROM not tested on Right hip. Pain on palpation of right hip/buttocks illicited pain with deep palpation. No cyanosis, clubbing, swelling, joint deformity, extremity edema INTEGUMENTARY: Intact, no rashes, no lesions, no erythema NEUROLOGIC: Cranial Nerves II-XII are intact, no focal deficits PSYCHIATRIC: Mood and affect are normal LABORATORY DATA: Please see below IMAGING: Femur XR: Mildly displaced right femoral neck fracture. CXR: NAD XR hip/pelvis: mildly displaced right femoral neck fracture. ASSESSMENT: 84 y/o F admitted for mildly displaced right femoral neck fracture. PLAN: 1. Right femoral neck fracture, mildly displaced. Hx of osteoporosis. NPO except meds, pain control with IV morphine, oxy/acetaminophen. Surgery consulted to see. 2. Hypokalemia, acute and likely medication induced (HCTZ). Potassium 2.9. Supplement total of 60 mEq today ( 10 mg IV plus 50 mEq oral KCL liquid), f/u repeat potassium level. 3. HTN. Increased in ER at 190-219/93-106. S/p 5 mg IV hydralazine but likely increased by pain. C/w pain control, home medications and tele monitoring. Holding HCTZ due to hypokalemia. Can add hydralazine PRN. 4. Overactive bladder. Stable. C/w home medication.s 5. Osteoporosis. Not on supplementation, hx of treatment with Vitamin D. 6. Stable pulmonary nodule on CT scan, hx. F/u with PCP. 7. Venous insufficiency. Stable. 8. DVT px. Enoxaparin SC daily. DISPOSITION: Admitted under inpatient status. Surgery consulted. Vital Signs Vital Signs Date Time Temp Pulse Resp B/P (MAP) Pulse Ox O2 Delivery O2 Flow Rate FiO2 12/30/19 14:59 95 18 219/93 (135) 94 Room Air 12/30/19 13:45 99.0 Laboratory Data Labs 24H Laboratory Tests 2 12/30/19 14:31: Immature Granulocyte % (Auto) 0.4, Neutrophils (%) (Auto) 87.4H, Lymphocytes (%) (Auto) 6.7L, Monocytes (%) (Auto) 5.0, Eosinophils (%) (Auto) 0.2, Basophils (%) (Auto) 0.3, Neutrophils # (Auto) 10.1H, Lymphocytes # (Auto) 0.8L, Monocytes # (Auto) 0.6, Eosinophils # (Auto) 0.0, Basophils # (Auto) 0.0, Nucleated Red Blood Cells % (auto) 0.0, Prothrombin Time 13.7, Prothromb Time International Ratio 1.08, Activated Partial Thromboplast Time 29.3, Anion Gap 7L, Glomerular Filtration Rate > 60.0, Calcium Level 9.0, Total Creatine Kinase 65, Creatine Kinase MB 2.2, Creatine Kinase MB Relative Index 3.38, Troponin I < 0.02 12/30/19 15:02: CBC/BMP Laboratory Tests 12/30/19 14:31 Home Medications Scheduled Omeprazole (Omeprazole) 40 Mg Capsule.dr, 40 MG PO BID Prednisolone Acetate (Prednisolone Acetate 1% Opth Susp) 5 Ml Drops.susp, 1 DROP OD QID Tolterodine Tartrate (Detrol) 2 Mg Tablet, 4 MG PO BID Valsartan/Hydrochlorothiazide (Valsartan-Hctz 80-12.5 mg Tab) 1 Each Tablet, 1 TAB PO QPM TAKES AT 1600 Verapamil HCl (Verapamil ER) 180 Mg Tab, 180 MG PO DAILY Scheduled PRN Ibuprofen (Ibu-200) 200 Mg Tablet, 200 MG PO Q6H PRN for HEADACHE Allergies Coded Allergies: No Known Allergies (Unverified , 02/13/19) A-FIB/CHADSVASC A-FIB History Current/History of A-Fib/PAF?: No Current PO Anticoag Therapy: No Age/Risk Factor Scoring CHADSVASC: CHADSVASC Response (Comments) Value Age Risk Factor Age >/= 75 years old 2 Gender Risk Factor Female 1 Hx of CHF No 0 Hx of HTN Yes 1 Hx of Stroke/TIA/or VTE No 0 Hx of Diabetes No 0 Hx of Vascular Disease Yes 1 Total 5 Treatment Other anticoagulant ordered: enoxaparin Karin Bales MD December 30, 2019 15:36
[2019-12-30] MEDS ORDERED: IBUP200T45 PO (15:41)
[2019-12-30] MEDS ORDERED: OMEP-221 PO (15:41)
[2019-12-30] MEDS ORDERED: PREDOPD OD (15:41)
[2019-12-30] MEDS ORDERED: KCL 10MEQ/100ML SWI (KRUN) 10 MEQ in IV 1 EA IV ONE (15:45)
[2019-12-30] MEDS ORDERED: hydrALAZINE 20MG/ML 1ML VIAL (J0360 PER 20MG) IV ONE (16:00)
[2019-12-30] MEDS ORDERED: POTASSIUM CHLORIDE 10% LIQ 20 MEQ/15 ML UDC PO ONE (17:00)
[2019-12-30 17:35] VITALS: BP 158/78
[2019-12-30] MEDS: hydrALAZINE 20MG/ML 1ML VIAL (J0360 PER 20MG) IV SCH (18:23)
[2019-12-30 20:00] VITALS: BP 162/80
[2019-12-30] MEDS: OMEPRAZOLE 20 MG CAP PO SCH (20:37)
[2019-12-30] MEDS: TOLTERODINE (DETROL) 2 MG TAB PO SCH (20:38)
[2019-12-30] MEDS: PERCOCET 5MG/325MG TAB PO PRN (20:38)
[2019-12-30] MEDS: VALSARTAN 80 MG TAB (DIOVAN) PO SCH (20:38)
[2019-12-30] MEDS: prednisoLONE ACET 1% OPHTH SUSP 5ML OD SCH (20:39)
[2019-12-30] MEDS ORDERED: hydroCHLOROthiazide 12.5 MG CAPSULE PO SCH (21:00)
[2019-12-30] MEDS ORDERED: ENOXAPARIN 30MG/0.3ML SYRINGE (J1650 PER 10MG) SC SCH (21:00)
[2019-12-31] VITALS (8 sets, daily range): BP systolic 135–176; BP diastolic 68–94
[2019-12-31] MEDS: hydrALAZINE 20MG/ML 1ML VIAL (J0360 PER 20MG) IV SCH ×3 (02:00→18:00)
[2019-12-31 05:51] LABS: HEMATOCRIT 36.4 % (36.0-47.0); MEAN CORPUSCULAR HEMOGLOBIN 29.8 pg (27.0-33.0); MEAN CORPUSCULAR VOLUME 90.3 fl (80.0-96.0); PLATELET COUNT, AUTOMATED 153 10^3/uL (150-450); RED BLOOD COUNT 4.03 10^6/uL (4.00-5.40); WHITE BLOOD COUNT 6.6 10^3/uL (4.0-10.0)
[2019-12-31 06:01] LABS: INR 1.17; PROTHROMBIN TIME 14.6 SECONDS (11.8-14.0)
[2019-12-31 06:02] LABS: PARTIAL THROMBOPLASTIN TIME 32.7 SECONDS (25.0-38.4)
[2019-12-31 06:22] LABS: ALBUMIN 3.2 GM/DL (3.2-5.2); ALT/SGPT 18 U/L (12-78); BLOOD UREA NITROGEN 17 MG/DL (7-18); CALCIUM LEVEL 8.5 MG/DL (8.8-10.2); CARBON DIOXIDE LEVEL 27 MEQ/L (21-32); CHLORIDE LEVEL 103 MEQ/L (98-107); CREATININE FOR GFR 0.59 MG/DL (0.55-1.30); GLOMERULAR FILTRATION RATE > 60.0 (>32); GLUCOSE, FASTING 99 MG/DL (70-100); POTASSIUM SERUM 3.8 MEQ/L (3.5-5.1); SODIUM LEVEL 137 MEQ/L (136-145); TOTAL PROTEIN 6.5 GM/DL (6.4-8.2)
[2019-12-31] MEDS ORDERED: ceFAZolin SOD 2 GM in IV 1 EA IV ONE (08:00)
--- NOTE | 2019-12-31 08:58 | ECGEPIP ---
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
[2019-12-31] MEDS: prednisoLONE ACET 1% OPHTH SUSP 5ML OD SCH ×4 (09:00→20:23)
[2019-12-31] MEDS: OMEPRAZOLE 20 MG CAP PO SCH ×2 (09:00→20:22)
[2019-12-31] MEDS: TOLTERODINE (DETROL) 2 MG TAB PO SCH ×2 (09:00→20:22)
[2019-12-31] MEDS: VERAPAMIL 180MG EXTENDED RELEASE TABLET PO SCH (09:00)
[2019-12-31] MEDS ORDERED: MORPHINE 2 MG/ML 1ML VIAL (J2270) IV ONE (10:00)
[2019-12-31] MEDS ORDERED: ceFAZolin 1GM VIAL (J0690 PER 500MG) As Ordered ONE (10:33)
[2019-12-31] MEDS ORDERED: hydrALAZINE 20MG/ML 1ML VIAL (J0360 PER 20MG) IV ONE (12:00)
[2019-12-31 12:28] LABS: MAGNESIUM LEVEL 1.6 MG/DL (1.8-2.4); PHOSPHORUS LEVEL 2.4 MG/DL (2.5-4.9)
[2019-12-31] MEDS ORDERED: MIDAZOLAM INJ 2MG/2ML VIAL (J2250 PER 1MG) As Ordered ONE (12:40)
[2019-12-31] MEDS ORDERED: ceFAZolin 2 GM/D5W 50 ML IV BAG (J0690 PER 500MG) As Ordered ONE (12:41)
[2019-12-31] MEDS ORDERED: fentaNYL 100 MCG/2 ML INJECTION (J3010) As Ordered ONE (12:41)
[2019-12-31] MEDS ORDERED: ONDANSETRON 4MG/2ML VIAL As Ordered ONE (12:41)
[2019-12-31] MEDS ORDERED: LIDOCAINE 2% 100MG/5ML SDV (FOR ANES.) As Ordered ONE (12:41)
[2019-12-31] MEDS ORDERED: propofoL 500 MG/50 ML VIAL As Ordered ONE (12:41)
[2019-12-31] MEDS ORDERED: MAG SULF 1GM/100ML (MAG RUN) 1 GM in IV 1 EA IV ONE (12:45)
[2019-12-31] MEDS ORDERED: KETAMINE HCL 200 MG/20 ML VIAL As Ordered ONE (12:57)
[2019-12-31] MEDS ORDERED: METOPROLOL 5 MG/5 ML VIAL As Ordered ONE (13:16)
[2019-12-31] MEDS ORDERED: TRANEXAMIC ACID 100 MG/ML 10ML VIAL As Ordered ONE (13:31)
[2019-12-31] MEDS ORDERED: PHENYLEPHRINE 10MG/ML 1ML VIAL (J2370 PER 1) As Ordered ONE (13:40)
[2019-12-31] MEDS: EPINEPHrine INJ 1 MG/ML 1ML AMP As Ordered ONE ×2 (13:45→14:31)
[2019-12-31] MEDS ORDERED: K-PHOS NEUTRAL 250MG TABLET (SOD.PHOSPHATE/POT.PHOSPHATE) PO ONE (14:00)
[2019-12-31] MEDS ORDERED: MORPHINE 2 MG/ML 1ML VIAL (J2270) IV PRN (15:30)
[2019-12-31] MEDS ORDERED: ONDANSETRON 4MG/2ML VIAL IV PRN (15:30)
[2019-12-31] MEDS ORDERED: fentaNYL 100 MCG/2 ML INJECTION (J3010) IV PRN (15:30)
[2019-12-31] MEDS ORDERED: LR 1,000 ML IV SCH (15:30)
[2019-12-31] MEDS ORDERED: MEPERIDINE INJ 25 MG/ML VIAL (J2175) As Ordered ONE (15:55)
[2019-12-31] MEDS ORDERED: MORPHINE 10 MG/ML 1ML VIAL (J2270) As Ordered ONE (16:10)
[2019-12-31] MEDS: MORPHINE 4 MG/ML 1ML VIAL/SYRINGE (J2270) IV PRN ×2 (16:13→16:23)
[2019-12-31] MEDS ORDERED: MEPERIDINE INJ 25 MG/ML VIAL (J2175) IV PRN (16:15)
--- NOTE | 2019-12-31 16:19 | REP ---
RIGHT HIP TWO VIEWS: Two views of the right hip are performed. There is a metallic prosthesis in the proximal right femur. It is well positioned with the prostatic femoral head in the acetabulum. The osseous structures are intact and well aligned. Electronically Signed by Juan Pablo Cannon MD 12/31/2019 04:31 P
--- NOTE | 2019-12-31 17:17 | RO ---
DATE OF PROCEDURE: 12/31/2019 PREOPERATIVE DIAGNOSIS: Right femoral neck fracture. POSTOPERATIVE DIAGNOSIS: Right femoral neck fracture. PLANNED PROCEDURE: Right hip cemented hemiarthroplasty. PROCEDURE PERFORMED: Right hip cemented hemiarthroplasty. OPERATIVE SURGEON: Stalin Francisco MD WAREHOUSE PULLER: HAND ALTERATIONS SEAMSTRESS: Pollo Abreu MD TYPE OF ANESTHETIC: Spinal anesthetic. OPERATIVE PREAMBLE: This 84-year-old female tripped on her purse, sustained a displaced right femoral neck fracture. We talked about the pros, cons, risks, benefits of nonsurgical treatment versus going ahead with right hip hemiarthroplasty. She wished to proceed with surgery. Marked the right lower extremity and proceeded to surgery. OPERATIVE REPORT: Patient was brought to the operating theater. Administered spinal anesthetic. 2 grams intravenous (IV) Ancef was administered as well as 2 grams of IV tranexamic at the start of the case. The patient was placed right lateral decubitus with aid of the [place] hip positioner. All bony prominences were padded. Sequential compression devices (SCDs) were used on the down leg. Axillary roll was employed. Leg was prepped and draped in the usual sterile fashion allowing over 3 minutes prep solution drying time. Preoperative time-out was performed to confirm the site, the patient, and the surgery. Began by making a 6 inch laterally-based incision over the proximal femur, curved this posteriorly slightly. Carried dissection down through skin and subcutaneous tissue achieving meticulous hemostasis. Incised tensor fascia maria isabel in line with skin incision. Then, sharply elevated the abductors off the greater trochanter. I made a T-shaped capsulotomy. I tagged each side with #1 Vicryl suture. I made the femoral neck cut using the guide. Then used the T-shaped corkscrew to remove the femoral head. Acetabulum was intact. No calcar fracture. I then used the kickboxing instructor as well as lateralizing reamers and then sequential broaches up to a size 4. This appeared appropriate. I used the canal planer as well as a slight 1 mm re-cut. I made my cut approximately one fingerbreadths width above the lesser trochanter. After sequential broaching, I trialed with a size 4 broach with -3 mm offset neck and size 48 mm head. This achieved good stability. Normal shuck test. Full range of motion in flexion, internal rotation as well as extension, external rotation and no impingement and no instability or subluxation. Trial components removed. Canal was thoroughly prepped. Distal cement restrictor was then trialed and placed a size 3 down distally. Canal was thoroughly irrigated as well as the acetabular side. Cement was mixed, allowed to get a little firm and then placed inside the canal. I used third-generation cement mixing techniques with vacuum mixing technique. While implanting, I then used the proximal canal restrictor to pressurized cement. I then placed the implant down ensuring the eversion was correct and the collar sat nicely on the medial calcar. This was allowed to dry in place for approximately 14 minutes. When cement was fully hard, the trunnion was cleaned. Head and neck were then assembled on the back table and then impacted into place. Peoples taper achieved a solid fit. I then re-reduced the hip. Again, it was stable. Shuck test was normal. Full range of motion. Capsule was closed with #1 Vicryl sutures and abductors repaired with #2 FiberWire suture in a Kaden-Win stitch configuration. I then repaired the tensor fascia maria isabel with a running #1 Vicryl suture, subcutaneous tissue with running #2-0 Vicryl suture, and skin with maritza. Skin was cleaned with a wet and dry dressing followed by application of adherent occlusive dressing and then padded with gauze, ABD dressing, and cloth tape. The patient was removed from the [place] hip positioner setup, transferred off the operating table, and taken to postanesthetic care unit in stable condition. All sponge, needle, and instruments counts were correct. No complications. Estimated blood loss: 150 mL. Plan for the patient is to be weightbearing as tolerated. They will have an x-ray in post anesthesia care unit (PACU), an AP of the hip, to ensure proper reduction and placement of the implant. Venous thromboembolism (VTE) prophylaxis with rivaroxaban 10 mg by mouth once daily for the next 35 days starting postoperative day #1. They will see the physical therapy (PT) while in hospital to ensure mobilization and safety for discharge home. Followup in the office in 2 weeks' time, check the wound as well as to discontinue the maritza.
[2019-12-31] MEDS: PERCOCET 5MG/325MG TAB PO PRN (18:03)
--- NOTE | 2019-12-31 19:00 | IPNPDOC ---
Date Seen The patient was seen on 12/31/19. Progress Note SUBJECTIVE: BP still not ideally controllled but unable to take PO home meds, hydralazine PRN. Anxious on exam for surgery today. One episode of nonsustained V tach, asymptomatic. Magnesium and phos low, replaced. Denies chest pain, n/v/d, shortness of breath. OBJECTIVE: VITAL SIGNS: Please see below PHYSICAL EXAMINATION: CONSTITUTIONAL: Slightly anxious but in no acute distress, resting comfortably, AAO x 3 EYES: PERRLA, EOM intact HENT, MOUTH: Normocephalic, atraumatic, moist mucous membranes, NECK: SUPPLE, no JVD, no lymphadenopathy, no carotid bruit CV: Regular rate and rhythm, S1S2 normal, no murmurs/rubs/gallops RESPIRATORY: Clear to auscultation bilaterally, no rales/rhonchi/wheezes GI: BS positive in 4 quadrants, soft, nontender, nondistended, no rebound or guarding, no organomegaly : Deferred MUSCULOSKELETAL: ROM not tested on Right hip. Pain on palpation of right hip/buttocks illicited pain with deep palpation. No cyanosis, clubbing, swelling, joint deformity, extremity edema INTEGUMENTARY: Intact, no rashes, no lesions, no erythema NEUROLOGIC: Cranial Nerves II-XII are intact, no focal deficits PSYCHIATRIC: Mood and affect are normal LABORATORY DATA: Please see below IMAGING: No new imaging. ASSESSMENT: 84 y/o F admitted for mildly displaced right femoral neck fracture, surgery today. PLAN: 1. Right femoral neck fracture, mildly displaced. RCRI Class I Risk. Cleared for surgery from medical standpoint. Hx of osteoporosis. NPO, surgery today. C/w pain control with IV morphine, add oral pain control post surgery. PT/OT when ok by surgery. 2. Hypomagnesemia. Magnesium sulfate 1 gm IV x 1 dose ordered. F/u magnesium. 3. Hypophosphatemia. Neutra phos ordered, f/u phosphorous level. 4. HTN. Uncontrolled overnight; however, unable to take home meds. Given hydralazine this AM. Resume home meds after surgery, if pain uncontrolled can contribute to this as well. Consider adding HCTZ back to regimen on 01/01/20. 3. Hypokalemia, acute and likely medication induced (HCTZ). Resolved. 4. Overactive bladder. Stable. C/w home medication.s 5. Osteoporosis. Not on supplementation, hx of treatment with Vitamin D. 6. Stable pulmonary nodule on CT scan, hx. F/u with PCP. 7. Venous insufficiency. Stable. 8. DVT px. To start when ok by surgery. DISPOSITION: Admitted under inpatient status. F/u post surgery. Will discuss to see when PT/OT ok to start. VS, I&O, 24H, Fishbone Vital Signs/I&O Vital Signs Date Time Temp Pulse Resp B/P (MAP) Pulse Ox O2 Delivery O2 Flow Rate FiO2 12/31/19 18:03 20 12/31/19 18:00 99.7 85 135/85 (102) 99 Room Air I&O- Last 24 Hours up to 6 AM 12/31/19 06:00 Intake Total 1035 ml Output Total 550 ml Balance 485 ml Laboratory Data 24H LABS Laboratory Tests 2 12/31/19 05:33: Nucleated Red Blood Cells % (auto) 0.0, Prothrombin Time 14.6H, Prothromb Time International Ratio 1.17, Activated Partial Thromboplast Time 32.7, Anion Gap 7L, Glomerular Filtration Rate > 60.0, Calcium Level 8.5L, Phosphorus Level 2.4L, Magnesium Level 1.6L, Total Bilirubin 1.0, Aspartate Amino Transf (AST/SGOT) 15, Alanine Aminotransferase (ALT/SGPT) 18, Alkaline Phosphatase 67, Total Protein 6.5, Albumin 3.2, Albumin/Globulin Ratio 0.97L CBC/BMP Laboratory Tests 12/31/19 05:33 Current Medications Current Medications Medications (Trade) Dose Ordered Sig/Akiko Route PRN Reason Start Time Stop Time Status Last Admin Dose Admin Acetaminophen (Tylenol Tab) 650 mg Q4HP PRN PO MILD PAIN (PS 1-4) 12/31/19 15:30 Enoxaparin Sodium (Lovenox) 30 mg DAILY@2100 SC 12/30/19 21:00 12/31/19 08:05 DC Fentanyl Citrate (Sublimaze) 25 mcg Q5MP PRN IV PAIN LEVEL 5-10 12/31/19 15:30 12/31/19 16:30 DC Home Med (Med Rec Complete!) ASDIRECTED XX 12/30/19 15:45 12/30/19 15:43 DC Hydralazine HCl (Apresoline) 10 mg Q8H IV 12/30/19 18:00 12/31/19 10:40 Hydrochlorothiazide (Hydrodiuril) 12.5 mg QPM PO 12/30/19 21:00 12/30/19 16:44 DC Lactated Ringer's 1,000 ml @ 80 mls/hr [id number] IV 12/31/19 15:30 12/31/19 16:30 DC Lactated Ringer's 1,000 ml @ 125 mls/hr Q8H IV 12/31/19 15:30 Meperidine HCl (Demerol) 12.5 mg Q5MP PRN IV SHIVERING 12/31/19 16:15 12/31/19 17:15 DC 12/31/19 16:00 Morphine Sulfate (Morphine Sulfate Inj) 2 mg Q10M PRN IV PAIN LEVEL 4 TO 7 12/31/19 16:20 12/31/19 17:20 DC 12/31/19 16:23 Morphine Sulfate (Morphine Sulfate Inj) 2 mg Q2H PRN IV MODERATE PAIN (PS 5-7) 12/31/19 15:30 Morphine Sulfate (Morphine Sulfate Inj) 2 mg Q30M PRN IV MODERATE PAIN (PS 5-7) 12/30/19 14:15 12/31/19 15:27 DC 12/30/19 14:54 Morphine Sulfate (Morphine Sulfate Inj) 2 mg Q6HP PRN IV SEVERE PAIN (PS 8-10) 12/30/19 17:00 12/31/19 05:46 Omeprazole (PriLOSEC) 40 mg BID PO 12/30/19 21:00 12/30/19 20:37 Ondansetron HCl (ZOFRAN INJection) 4 mg Q4H PRN IV NAUSEA OR VOMITING 12/31/19 15:30 Ondansetron HCl (ZOFRAN INJection) 4 mg Q4HP PRN IV NAUSEA OR VOMITING 12/31/19 15:30 12/31/19 16:30 DC Oxycodone/ Acetaminophen (Percocet 5mg/ 325mg Tablet) 1 tab Q6HP PRN PO MODERATE PAIN (PS 5-7) 12/30/19 17:00 12/30/19 20:38 Oxycodone/ Acetaminophen (Percocet 5mg/ 325mg Tablet) 2 tab Q4H PRN PO SEVERE PAIN (PS 8-10) 12/31/19 15:30 12/31/19 18:03 Prednisolone Acetate (Predforte 1% Ophth Susp) 1 drop QID OD 12/30/19 21:00 12/31/19 18:16 Rivaroxaban (Xarelto) 10 mg DAILY@18 PO 01/01/20 18:00 02/04/20 18:01 Tolterodine Tartrate (Detrol) 4 mg BID PO 12/30/19 21:00 12/30/19 20:38 Valsartan (Diovan) 80 mg QPM PO 12/30/19 21:00 12/30/19 20:38 Verapamil HCl (Calan Sr) 180 mg DAILY PO 12/31/19 09:00 Allergies Coded Allergies: No Known Allergies (Unverified , 02/13/19) Karin Bales MD December 31, 2019 19:00
[2019-12-31] MEDS: LR 1,000 ML IV SCH ×2 (19:55→23:31)
[2019-12-31] MEDS: VALSARTAN 80 MG TAB (DIOVAN) PO SCH (20:23)
[2019-12-31] MEDS: ONDANSETRON 4MG/2ML VIAL IV PRN (23:33)
[2020-01-01] MEDS: hydrALAZINE 20MG/ML 1ML VIAL (J0360 PER 20MG) IV SCH ×3 (02:00→18:00)
[2020-01-01 04:00] VITALS: BP 144/70
[2020-01-01] MEDS: PERCOCET 5MG/325MG TAB PO PRN ×2 (04:21→14:28)
[2020-01-01 06:00] LABS: HEMATOCRIT 33.7 % (36.0-47.0); HEMOGLOBIN 10.7 g/dl (12.0-15.5); MEAN CORPUSCULAR HEMOGLOBIN 29.7 pg (27.0-33.0); MEAN CORPUSCULAR HGB CONC 31.8 g/dl (32.0-36.5); MEAN CORPUSCULAR VOLUME 93.6 fl (80.0-96.0); PLATELET COUNT, AUTOMATED 129 10^3/uL (150-450); WHITE BLOOD COUNT 10.5 10^3/uL (4.0-10.0)
[2020-01-01 06:35] LABS: ALBUMIN 2.7 GM/DL (3.2-5.2); ALT/SGPT 27 U/L (12-78); BILIRUBIN,TOTAL 0.9 MG/DL (0.2-1.0); BLOOD UREA NITROGEN 14 MG/DL (7-18); CALCIUM LEVEL 8.2 MG/DL (8.8-10.2); CARBON DIOXIDE LEVEL 29 MEQ/L (21-32); CHLORIDE LEVEL 103 MEQ/L (98-107); CREATININE FOR GFR 0.55 MG/DL (0.55-1.30); GLOMERULAR FILTRATION RATE > 60.0 (>32); GLUCOSE, FASTING 97 MG/DL (70-100); POTASSIUM SERUM 4.1 MEQ/L (3.5-5.1); SODIUM LEVEL 138 MEQ/L (136-145); TOTAL PROTEIN 5.9 GM/DL (6.4-8.2)
[2020-01-01 07:43] VITALS: BP 134/72
[2020-01-01] MEDS: LR 1,000 ML IV SCH ×2 (07:58→23:54)
[2020-01-01 08:01] VITALS: O2SAT 95
[2020-01-01] MEDS: ceFAZolin SOD 2 GM in IV 1 EA IV SCH ×3 (08:20→23:54)
[2020-01-01] MEDS: VERAPAMIL 180MG EXTENDED RELEASE TABLET PO SCH (08:21)
[2020-01-01] MEDS: TOLTERODINE (DETROL) 2 MG TAB PO SCH ×2 (08:21→21:28)
[2020-01-01] MEDS: prednisoLONE ACET 1% OPHTH SUSP 5ML OD SCH ×4 (08:22→21:28)
[2020-01-01] MEDS: SENOKOT S TAB PO SCH ×2 (08:22→21:28)
[2020-01-01] MEDS: OMEPRAZOLE 20 MG CAP PO SCH ×2 (08:22→21:27)
[2020-01-01] MEDS: MOM 30ML SUSPENSION UDC PO SCH (08:23)
[2020-01-01] MEDS: MIRALAX *UNIT DOSE* 17GM PACKET PO SCH (08:23)
[2020-01-01 16:00] VITALS: BP 110/54
[2020-01-01 18:25] VITALS: BP 92/50
--- NOTE | 2020-01-01 18:32 | IPNPDOC ---
Date Seen The patient was seen on 01/01/20. Progress Note SUBJECTIVE: Post-op Day 1 right hip cemented hemiarthroplasty. BP better controlled on home meds, improved anxiety. Electrolytes improved. Pain controlled, PT/OT. Denies chest pain, n/v/d, shortness of breath. OBJECTIVE: VITAL SIGNS: Please see below PHYSICAL EXAMINATION: CONSTITUTIONAL: Slightly anxious but in no acute distress, resting comfortably, AAO x 3 EYES: PERRLA, EOM intact HENT, MOUTH: Normocephalic, atraumatic, moist mucous membranes, NECK: SUPPLE, no JVD, no lymphadenopathy, no carotid bruit CV: Regular rate and rhythm, S1S2 normal, no murmurs/rubs/gallops RESPIRATORY: Clear to auscultation bilaterally, no rales/rhonchi/wheezes GI: BS positive in 4 quadrants, soft, nontender, nondistended, no rebound or guarding, no organomegaly : Deferred MUSCULOSKELETAL: Incision of right hip clean, no increased erythema or warmth. Increased swelling, nonpitting. No cyanosis, clubbing, joint deformity INTEGUMENTARY: Intact, no rashes, no lesions, no erythema NEUROLOGIC: Cranial Nerves II-XII are intact, no focal deficits PSYCHIATRIC: Mood and affect are normal LABORATORY DATA: Please see below IMAGING: No new imaging. ASSESSMENT: 84 y/o F admitted for mildly displaced right femoral neck fracture s/p PLAN: 1. Right femoral neck fracture post-op Day 1 right hip cemented hemiarthroplasty. No complications during surgery. C/w pain control with Percocet PRN based on pain scale. PT/OT. 2. HTN. Better controlled. C/w CCB, ARB. Continue to hold HCTZ for now. 3. Hypophosphatemia. F/u in AM. 4. Hypomagnesemia. F/u in AM 5. Overactive bladder. Stable. C/w home medications 6. Osteoporosis. Not on supplementation, hx of treatment with Vitamin D. 7. Stable pulmonary nodule on CT scan, hx. F/u with PCP. 8. Venous insufficiency. Stable. 9. DVT px. Xarelto. DISPOSITION: Admitted under inpatient status. PT/OT, will need rehab. Discussed with team and [facility] for continued rehab is possibility when appropriate. VS, I&O, 24H, Fishbone Vital Signs/I&O Vital Signs Date Time Temp Pulse Resp B/P (MAP) Pulse Ox O2 Delivery O2 Flow Rate FiO2 01/01/20 18:25 88 92/50 (64) 01/01/20 16:00 98.3 18 91 Room Air 01/01/20 07:43 1.0 I&O- Last 24 Hours up to 6 AM 01/01/20 05:59 Intake Total 1030 ml Output Total 400 ml Balance 630 ml Laboratory Data 24H LABS Laboratory Tests 2 01/01/20 05:42: Nucleated Red Blood Cells % (auto) 0.0, Anion Gap 6L, Glomerular Filtration Rate > 60.0, Calcium Level 8.2L, Total Bilirubin 0.9, Aspartate Amino Transf (AST/SGOT) 25, Alanine Aminotransferase (ALT/SGPT) 27, Alkaline Phosphatase 59, Total Protein 5.9L, Albumin 2.7L, Albumin/Globulin Ratio 0.84L CBC/BMP Laboratory Tests 01/01/20 05:42 Current Medications Current Medications Medications (Trade) Dose Ordered Sig/Akiko Route PRN Reason Start Time Stop Time Status Last Admin Dose Admin Acetaminophen (Tylenol Tab) 650 mg Q4HP PRN PO MILD PAIN (PS 1-4) 12/31/19 15:30 Cefazolin Sodium/ Dextrose 2 gm/IV Miscellaneous Supplies 50 ml @ 75 mls/hr Q8H IV 01/01/20 08:00 01/02/20 00:39 01/01/20 16:14 Enoxaparin Sodium (Lovenox) 30 mg DAILY@2100 SC 12/30/19 21:00 12/31/19 08:05 DC Fentanyl Citrate (Sublimaze) 25 mcg Q5MP PRN IV PAIN LEVEL 5-10 12/31/19 15:30 12/31/19 16:30 DC Home Med (Med Rec Complete!) ASDIRECTED XX 12/30/19 15:45 12/30/19 15:43 DC Hydralazine HCl (Apresoline) 10 mg Q8H IV 12/30/19 18:00 01/01/20 10:15 Hydrochlorothiazide (Hydrodiuril) 12.5 mg QPM PO 12/30/19 21:00 12/30/19 16:44 DC Lactated Ringer's 1,000 ml @ 80 mls/hr [id number] IV 12/31/19 15:30 12/31/19 16:30 DC Lactated Ringer's 1,000 ml @ 125 mls/hr Q8H IV 12/31/19 15:30 01/01/20 07:58 Magnesium Hydroxide (Milk Of Magnesia) 30 ml DAILY PO 01/01/20 09:00 Meperidine HCl (Demerol) 12.5 mg Q5MP PRN IV SHIVERING 12/31/19 16:15 12/31/19 17:15 DC 12/31/19 16:00 Morphine Sulfate (Morphine Sulfate Inj) 2 mg Q10M PRN IV PAIN LEVEL 4 TO 7 12/31/19 16:20 12/31/19 17:20 DC 12/31/19 16:23 Morphine Sulfate (Morphine Sulfate Inj) 2 mg Q2H PRN IV MODERATE PAIN (PS 5-7) 12/31/19 15:30 01/01/20 07:50 DC Morphine Sulfate (Morphine Sulfate Inj) 2 mg Q30M PRN IV MODERATE PAIN (PS 5-7) 12/30/19 14:15 12/31/19 15:27 DC 12/30/19 14:54 Morphine Sulfate (Morphine Sulfate Inj) 2 mg Q6HP PRN IV SEVERE PAIN (PS 8-10) 12/30/19 17:00 01/01/20 07:50 DC 12/31/19 05:46 Omeprazole (PriLOSEC) 40 mg BID PO 12/30/19 21:00 01/01/20 08:22 Ondansetron HCl (ZOFRAN INJection) 4 mg Q4H PRN IV NAUSEA OR VOMITING 12/31/19 15:30 12/31/19 23:33 Ondansetron HCl (ZOFRAN INJection) 4 mg Q4HP PRN IV NAUSEA OR VOMITING 12/31/19 15:30 12/31/19 16:30 DC Oxycodone/ Acetaminophen (Percocet 5mg/ 325mg Tablet) 1 tab Q6HP PRN PO MODERATE PAIN (PS 5-7) 12/30/19 17:00 01/01/20 04:21 Oxycodone/ Acetaminophen (Percocet 5mg/ 325mg Tablet) 2 tab Q4H PRN PO SEVERE PAIN (PS 8-10) 12/31/19 15:30 01/01/20 14:28 Polyethylene Glycol (Miralax) 1 pkt DAILY PO 01/01/20 09:00 Prednisolone Acetate (Predforte 1% Ophth Susp) 1 drop QID OD 12/30/19 21:00 01/01/20 14:23 Rivaroxaban (Xarelto) 10 mg DAILY@18 PO 01/01/20 18:00 02/04/20 18:01 Senna/Docusate Sodium (Senokot S) 1 tab BID PO 01/01/20 09:00 01/01/20 08:22 Tolterodine Tartrate (Detrol) 4 mg BID PO 12/30/19 21:00 01/01/20 08:21 Valsartan (Diovan) 80 mg QPM PO 12/30/19 21:00 12/31/19 20:23 Verapamil HCl (Calan Sr) 180 mg DAILY PO 12/31/19 09:00 01/01/20 08:21 Allergies Coded Allergies: No Known Allergies (Unverified , 02/13/19) Karin Bales MD January 01, 2020 18:31
[2020-01-01] MEDS: RIVAROXABAN 10 MG TAB (XARELTO) PO SCH (18:34)
[2020-01-01 20:00] VITALS: BP 142/64
[2020-01-01] MEDS: VALSARTAN 80 MG TAB (DIOVAN) PO SCH (21:27)
[2020-01-01] MEDS: ACETAMINOPHEN TAB 650MG DOSE (2X325MG) PO PRN (21:29)
[2020-01-02] VITALS (7 sets, daily range): BP systolic 111–141; BP diastolic 55–98
[2020-01-02] MEDS: hydrALAZINE 20MG/ML 1ML VIAL (J0360 PER 20MG) IV SCH ×3 (02:00→17:29)
[2020-01-02] MEDS: PERCOCET 5MG/325MG TAB PO PRN ×3 (04:05→20:37)
[2020-01-02] MEDS: LR 1,000 ML IV SCH (04:47)
[2020-01-02 05:50] LABS: HEMATOCRIT 28.2 % (36.0-47.0); HEMOGLOBIN 9.7 g/dl (12.0-15.5); MEAN CORPUSCULAR HEMOGLOBIN 31.1 pg (27.0-33.0); MEAN CORPUSCULAR HGB CONC 34.4 g/dl (32.0-36.5); MEAN CORPUSCULAR VOLUME 90.4 fl (80.0-96.0); PLATELET COUNT, AUTOMATED 128 10^3/uL (150-450); RED BLOOD COUNT 3.12 10^6/uL (4.00-5.40); WHITE BLOOD COUNT 9.1 10^3/uL (4.0-10.0)
[2020-01-02 06:19] LABS: ALBUMIN 2.3 GM/DL (3.2-5.2); ALT/SGPT 15 U/L (12-78); BILIRUBIN,TOTAL 0.7 MG/DL (0.2-1.0); BLOOD UREA NITROGEN 14 MG/DL (7-18); CALCIUM LEVEL 7.9 MG/DL (8.8-10.2); CARBON DIOXIDE LEVEL 29 MEQ/L (21-32); CHLORIDE LEVEL 102 MEQ/L (98-107); CREATININE FOR GFR 0.52 MG/DL (0.55-1.30); GLOMERULAR FILTRATION RATE > 60.0 (>32); GLUCOSE, FASTING 114 MG/DL (70-100); MAGNESIUM LEVEL 1.8 MG/DL (1.8-2.4); PHOSPHORUS LEVEL 1.8 MG/DL (2.5-4.9); POTASSIUM SERUM 3.6 MEQ/L (3.5-5.1); SODIUM LEVEL 137 MEQ/L (136-145); TOTAL PROTEIN 5.3 GM/DL (6.4-8.2)
[2020-01-02] MEDS: prednisoLONE ACET 1% OPHTH SUSP 5ML OD SCH ×4 (09:00→20:37)
[2020-01-02] MEDS: VERAPAMIL 180MG EXTENDED RELEASE TABLET PO SCH (10:06)
[2020-01-02] MEDS: K-PHOS NEUTRAL 250MG TABLET (SOD.PHOSPHATE/POT.PHOSPHATE) PO SCH ×2 (10:06→20:35)
[2020-01-02] MEDS: SENOKOT S TAB PO SCH ×2 (10:06→20:35)
[2020-01-02] MEDS: OMEPRAZOLE 20 MG CAP PO SCH ×2 (10:07→20:35)
[2020-01-02] MEDS: TOLTERODINE (DETROL) 2 MG TAB PO SCH ×2 (10:11→20:36)
[2020-01-02] MEDS: MOM 30ML SUSPENSION UDC PO SCH (10:11)
[2020-01-02] MEDS: MIRALAX *UNIT DOSE* 17GM PACKET PO SCH (10:12)
[2020-01-02] MEDS: ONDANSETRON 4MG/2ML VIAL IV PRN (11:53)
[2020-01-02] MEDS: RIVAROXABAN 10 MG TAB (XARELTO) PO SCH (17:30)
--- NOTE | 2020-01-02 17:42 | IPNPDOC ---
Date Seen The patient was seen on 01/02/20. Progress Note SUBJECTIVE: Post-op Day 2 right hip cemented hemiarthroplasty. O2 sat slightly low at 90- 91%, +2 L/24 hrs. Stopped IVFs, starting 30 mg IV lasix daily. Monitor I&O's. Pain controlled, PT/OT. Denies chest pain, n/v/d, shortness of breath. OBJECTIVE: VITAL SIGNS: Please see below PHYSICAL EXAMINATION: CONSTITUTIONAL: Resting comfortably, AAO x 3 EYES: PERRLA, EOM intact HENT, MOUTH: Normocephalic, atraumatic, moist mucous membranes, NECK: SUPPLE, no JVD, no lymphadenopathy, no carotid bruit CV: Regular rate and rhythm, S1S2 normal, no murmurs/rubs/gallops RESPIRATORY: crackles in bilateral lung bases, mild. no rales/rhonchi/wheezes GI: BS positive in 4 quadrants, soft, nontender, nondistended, no rebound or guarding, no organomegaly : Deferred MUSCULOSKELETAL: Incision of right hip clean, no increased erythema or warmth. Increased swelling, nonpitting. No cyanosis, clubbing, joint deformity INTEGUMENTARY: Intact, no rashes, no lesions, no erythema NEUROLOGIC: Cranial Nerves II-XII are intact, no focal deficits PSYCHIATRIC: Mood and affect are normal LABORATORY DATA: Please see below IMAGING: No new imaging. ASSESSMENT: 84 y/o F admitted for mildly displaced right femoral neck fracture s/p hip cemented hemiarthroplasty. PLAN: 1. Right femoral neck fracture post-op Day 2 right hip cemented hemiarthroplasty. IVFs stopped, has not had BM yet but not much of an appetite. C/w pain control with Percocet PRN based on pain scale, bowel regimen in place. PT/OT. 2. Low O2 saturation, atelectasis vs. fluid overload. +2 L/24 hrs. D/c fluids, started lasix daily and incentive spirometer. 3. HTN. Stable. C/w CCB, ARB, lasix. 4. Hypophosphatemia. Started on neutra phos supplementation. F/u in AM. 5. Overactive bladder. Stable. C/w home medications 6. Osteoporosis. Not on supplementation, hx of treatment with Vitamin D. 7. Stable pulmonary nodule on CT scan, hx. F/u with PCP. 8. Venous insufficiency. Stable. 9. DVT px. Xarelto. DISPOSITION: Admitted under inpatient status. PT/OT, will need rehab. Discussed with team and [facility] for continued rehab is possibility after weekend. VS, I&O, 24H, Fishbone Vital Signs/I&O Vital Signs Date Time Temp Pulse Resp B/P (MAP) Pulse Ox O2 Delivery O2 Flow Rate FiO2 01/02/20 17:29 111/60 01/02/20 15:08 98.6 105 18 90 Room Air 01/01/20 07:43 1.0 I&O- Last 24 Hours up to 6 AM 01/02/20 05:59 Intake Total 2440 ml Output Total 300 ml Balance 2140 ml Laboratory Data 24H LABS Laboratory Tests 2 01/02/20 05:37: Nucleated Red Blood Cells % (auto) 0.0, Anion Gap 6L, Glomerular Filtration Rate > 60.0, Calcium Level 7.9L, Phosphorus Level 1.8#L, Magnesium Level 1.8, Total Bilirubin 0.7, Aspartate Amino Transf (AST/SGOT) 34, Alanine Aminotransferase (ALT/SGPT) 15, Alkaline Phosphatase 53, Total Protein 5.3L, Albumin 2.3L, Albumin/Globulin Ratio 0.77L CBC/BMP Laboratory Tests 01/02/20 05:37 Current Medications Current Medications Medications (Trade) Dose Ordered Sig/Akiko Route PRN Reason Start Time Stop Time Status Last Admin Dose Admin Acetaminophen (Tylenol Tab) 650 mg Q4HP PRN PO MILD PAIN (PS 1-4) 12/31/19 15:30 01/01/20 21:29 Cefazolin Sodium/ Dextrose 2 gm/IV Miscellaneous Supplies 50 ml @ 75 mls/hr Q8H IV 01/01/20 08:00 01/02/20 00:39 DC 01/01/20 23:54 Enoxaparin Sodium (Lovenox) 30 mg DAILY@2100 SC 12/30/19 21:00 12/31/19 08:05 DC Fentanyl Citrate (Sublimaze) 25 mcg Q5MP PRN IV PAIN LEVEL 5-10 12/31/19 15:30 12/31/19 16:30 DC Home Med (Med Rec Complete!) ASDIRECTED XX 12/30/19 15:45 12/30/19 15:43 DC Hydralazine HCl (Apresoline) 10 mg Q8H IV 12/30/19 18:00 01/01/20 10:15 Hydrochlorothiazide (Hydrodiuril) 12.5 mg QPM PO 12/30/19 21:00 12/30/19 16:44 DC Lactated Ringer's 1,000 ml @ 60 mls/hr [id number] IV 12/31/19 15:30 01/01/20 23:54 Lactated Ringer's 1,000 ml @ 80 mls/hr [id number] IV 12/31/19 15:30 12/31/19 16:30 DC Magnesium Hydroxide (Milk Of Magnesia) 30 ml DAILY PO 01/01/20 09:00 01/02/20 10:11 Meperidine HCl (Demerol) 12.5 mg Q5MP PRN IV SHIVERING 12/31/19 16:15 12/31/19 17:15 DC 12/31/19 16:00 Morphine Sulfate (Morphine Sulfate Inj) 2 mg Q10M PRN IV PAIN LEVEL 4 TO 7 12/31/19 16:20 12/31/19 17:20 DC 12/31/19 16:23 Morphine Sulfate (Morphine Sulfate Inj) 2 mg Q2H PRN IV MODERATE PAIN (PS 5-7) 12/31/19 15:30 01/01/20 07:50 DC Morphine Sulfate (Morphine Sulfate Inj) 2 mg Q30M PRN IV MODERATE PAIN (PS 5-7) 12/30/19 14:15 12/31/19 15:27 DC 12/30/19 14:54 Morphine Sulfate (Morphine Sulfate Inj) 2 mg Q6HP PRN IV SEVERE PAIN (PS 8-10) 12/30/19 17:00 01/01/20 07:50 DC 12/31/19 05:46 Omeprazole (PriLOSEC) 40 mg BID PO 12/30/19 21:00 01/02/20 10:07 Ondansetron HCl (ZOFRAN INJection) 4 mg Q4H PRN IV NAUSEA OR VOMITING 12/31/19 15:30 01/02/20 11:53 Ondansetron HCl (ZOFRAN INJection) 4 mg Q4HP PRN IV NAUSEA OR VOMITING 12/31/19 15:30 12/31/19 16:30 DC Oxycodone/ Acetaminophen (Percocet 5mg/ 325mg Tablet) 1 tab Q6HP PRN PO MODERATE PAIN (PS 5-7) 12/30/19 17:00 01/01/20 04:21 Oxycodone/ Acetaminophen (Percocet 5mg/ 325mg Tablet) 2 tab Q4H PRN PO SEVERE PAIN (PS 8-10) 12/31/19 15:30 01/02/20 10:19 Polyethylene Glycol (Miralax) 1 pkt DAILY PO 01/01/20 09:00 01/02/20 10:12 Potassium Phos/ Sodium Phos (K-Phos Neutral) 250 mg BID PO 01/02/20 09:00 01/02/20 10:06 Prednisolone Acetate (Predforte 1% Ophth Susp) 1 drop QID OD 12/30/19 21:00 01/02/20 17:31 Rivaroxaban (Xarelto) 10 mg DAILY@18 PO 01/01/20 18:00 02/04/20 18:01 01/02/20 17:30 Senna/Docusate Sodium (Senokot S) 1 tab BID PO 01/01/20 09:00 01/02/20 10:06 Tolterodine Tartrate (Detrol) 4 mg BID PO 12/30/19 21:00 01/02/20 10:11 Valsartan (Diovan) 80 mg QPM PO 12/30/19 21:00 01/01/20 21:27 Verapamil HCl (Calan Sr) 180 mg DAILY PO 12/31/19 09:00 01/02/20 10:06 Allergies Coded Allergies: No Known Allergies (Unverified , 02/13/19) Karin Bales MD January 02, 2020 17:42
[2020-01-02] MEDS: FUROSEMIDE 40MG/4ML VIAL (J1940) IV SCH (18:09)
[2020-01-02] MEDS: VALSARTAN 80 MG TAB (DIOVAN) PO SCH (20:36)
[2020-01-03] MEDS: hydrALAZINE 20MG/ML 1ML VIAL (J0360 PER 20MG) IV SCH (01:57)
[2020-01-03] MEDS: PERCOCET 5MG/325MG TAB PO PRN (05:56)
[2020-01-03 06:00] VITALS: BP 140/73
[2020-01-03 06:34] LABS: HEMATOCRIT 28.1 % (36.0-47.0); HEMOGLOBIN 9.3 g/dl (12.0-15.5); MEAN CORPUSCULAR HEMOGLOBIN 30.6 pg (27.0-33.0); MEAN CORPUSCULAR HGB CONC 33.1 g/dl (32.0-36.5); MEAN CORPUSCULAR VOLUME 92.4 fl (80.0-96.0); PLATELET COUNT, AUTOMATED 150 10^3/uL (150-450); RED BLOOD COUNT 3.04 10^6/uL (4.00-5.40); WHITE BLOOD COUNT 7.4 10^3/uL (4.0-10.0)
[2020-01-03 07:04] LABS: ALBUMIN 2.3 GM/DL (3.2-5.2); ALT/SGPT 14 U/L (12-78); BLOOD UREA NITROGEN 15 MG/DL (7-18); CALCIUM LEVEL 7.9 MG/DL (8.8-10.2); CARBON DIOXIDE LEVEL 32 MEQ/L (21-32); CHLORIDE LEVEL 100 MEQ/L (98-107); CREATININE FOR GFR 0.51 MG/DL (0.55-1.30); GLOMERULAR FILTRATION RATE > 60.0 (>32); GLUCOSE, FASTING 91 MG/DL (70-100); MAGNESIUM LEVEL 1.8 MG/DL (1.8-2.4); POTASSIUM SERUM 3.4 MEQ/L (3.5-5.1); SODIUM LEVEL 138 MEQ/L (136-145); TOTAL PROTEIN 5.3 GM/DL (6.4-8.2)
[2020-01-03] MEDS: FUROSEMIDE 40MG/4ML VIAL (J1940) IV SCH (08:46)
[2020-01-03] MEDS: TOLTERODINE (DETROL) 2 MG TAB PO SCH ×2 (08:47→20:34)
[2020-01-03] MEDS: MOM 30ML SUSPENSION UDC PO SCH (08:47)
[2020-01-03] MEDS: SENOKOT S TAB PO SCH (08:47)
[2020-01-03] MEDS: OMEPRAZOLE 20 MG CAP PO SCH ×2 (08:47→20:34)
[2020-01-03] MEDS: K-PHOS NEUTRAL 250MG TABLET (SOD.PHOSPHATE/POT.PHOSPHATE) PO SCH ×2 (08:49→20:35)
[2020-01-03] MEDS: VERAPAMIL 180MG EXTENDED RELEASE TABLET PO SCH (08:49)
[2020-01-03] MEDS: MIRALAX *UNIT DOSE* 17GM PACKET PO SCH (08:50)
[2020-01-03] MEDS: prednisoLONE ACET 1% OPHTH SUSP 5ML OD SCH ×4 (08:50→20:34)
[2020-01-03] MEDS ORDERED: POTASSIUM CHLORIDE 10 MEQ SR TABLET PO ONE (09:00)
[2020-01-03] MEDS ORDERED: K-PHOS NEUTRAL 250MG TABLET (SOD.PHOSPHATE/POT.PHOSPHATE) PO ONE (10:00)
[2020-01-03 14:00] VITALS: BP 101/56
[2020-01-03] MEDS: RIVAROXABAN 10 MG TAB (XARELTO) PO SCH (17:37)
--- NOTE | 2020-01-03 17:38 | IPNPDOC ---
Date Seen The patient was seen on 01/03/20. Progress Note SUBJECTIVE: O2 improved with incentive spirometer, on lasix but still +1 L/24hrs. Pain controlled. No BM in several days. Electrolytes managed. Denies chest pain, n/v/d, shortness of breath. OBJECTIVE: VITAL SIGNS: Please see below PHYSICAL EXAMINATION: CONSTITUTIONAL: Resting comfortably, AAO x 3 EYES: PERRLA, EOM intact HENT, MOUTH: Normocephalic, atraumatic, moist mucous membranes, NECK: SUPPLE, no JVD, no lymphadenopathy, no carotid bruit CV: Regular rate and rhythm, S1S2 normal, no murmurs/rubs/gallops RESPIRATORY: crackles in bilateral lung bases, mild. No rales/rhonchi/wheezes GI: BS positive in 4 quadrants, soft, nontender, nondistended, no rebound or guarding, no organomegaly : Deferred MUSCULOSKELETAL: Incisions of right hip clean, no increased erythema or warmth. Increased swelling, nonpitting. No cyanosis, clubbing, joint deformity INTEGUMENTARY: Intact, no rashes, no lesions, no erythema NEUROLOGIC: Cranial Nerves II-XII are intact, no focal deficits PSYCHIATRIC: Mood and affect are normal LABORATORY DATA: Please see below IMAGING: No new imaging. ASSESSMENT: 84 y/o F admitted for mildly displaced right femoral neck fracture s/p hip cemented hemiarthroplasty. PLAN: 1. Right femoral neck fracture post-op day 3 right hip cemented hemiarthr oplasty. C/w pain control with Percocet PRN based on pain scale, bowel regimen in place. PT/OT. 2. Constipation, baseline but worsened by narcotic use. D/c senokot S, start on colace BID, senna 2 tabs PO HS, miralax daily. Encourage PO fluid intake, keep water at bedside. MOM PRN. 3. Low O2 saturation, atelectasis vs. fluid overload. Improved on RA. C/w lasix, incentive spirometer. 3. Hypokalemia likely 2/2 to lasix. Replaced 30 mEq today, f/u AM labs. 4. HTN. Stable. C/w CCB, ARB, lasix. 5. Hypophosphatemia. C/w K phos BID plus additional dose today. F/u in AM. 6. Overactive bladder. Stable. C/w home medications 7. Osteoporosis. Not on supplementation, hx of treatment with Vitamin D. 8. Stable pulmonary nodule on CT scan, hx. F/u with PCP. 9. Venous insufficiency. Stable. 10. DVT px. Xarelto. DISPOSITION: Admitted under inpatient status. PT/OT, will need rehab. Discussed with team and [facility] for continued rehab is possibility after weekend. VS, I&O, 24H, Fishbone Vital Signs/I&O Vital Signs Date Time Temp Pulse Resp B/P (MAP) Pulse Ox O2 Delivery O2 Flow Rate FiO2 01/03/20 14:00 98.5 101 18 101/56 (71) 94 Room Air 01/01/20 07:43 1.0 I&O- Last 24 Hours up to 6 AM 01/03/20 05:59 Intake Total 1330 ml Output Total 425 ml Balance 905 ml Laboratory Data 24H LABS Laboratory Tests 2 01/03/20 06:16: Nucleated Red Blood Cells % (auto) 0.0, Anion Gap 6L, Glomerular Filtration Rate > 60.0, Calcium Level 7.9L, Phosphorus Level 2.0L, Magnesium Level 1.8, Total Bilirubin 1.0, Aspartate Amino Transf (AST/SGOT) 29, Alanine Aminotransferase (ALT/SGPT) 14, Alkaline Phosphatase 54, Total Protein 5.3L, Albumin 2.3L, Albumin/Globulin Ratio 0.77L CBC/BMP Laboratory Tests 01/03/20 06:16 Current Medications Current Medications Medications (Trade) Dose Ordered Sig/Akiko Route PRN Reason Start Time Stop Time Status Last Admin Dose Admin Acetaminophen (Tylenol Tab) 650 mg Q4HP PRN PO MILD PAIN (PS 1-4) 12/31/19 15:30 01/01/20 21:29 Cefazolin Sodium/ Dextrose 2 gm/IV Miscellaneous Supplies 50 ml @ 75 mls/hr Q8H IV 01/01/20 08:00 01/02/20 00:39 DC 01/01/20 23:54 Enoxaparin Sodium (Lovenox) 30 mg DAILY@2100 SC 12/30/19 21:00 12/31/19 08:05 DC Fentanyl Citrate (Sublimaze) 25 mcg Q5MP PRN IV PAIN LEVEL 5-10 12/31/19 15:30 12/31/19 16:30 DC Furosemide (LASIX injection) 30 mg DAILY IV 01/02/20 09:00 01/03/20 08:46 Home Med (Med Rec Complete!) ASDIRECTED XX 12/30/19 15:45 12/30/19 15:43 DC Hydralazine HCl (Apresoline) 10 mg Q8H IV 12/30/19 18:00 Hold 01/01/20 10:15 Hydrochlorothiazide (Hydrodiuril) 12.5 mg QPM PO 12/30/19 21:00 12/30/19 16:44 DC Lactated Ringer's 1,000 ml @ 60 mls/hr [id number] IV 12/31/19 15:30 01/02/20 17:36 DC 01/01/20 23:54 Lactated Ringer's 1,000 ml @ 80 mls/hr [id number] IV 12/31/19 15:30 12/31/19 16:30 DC Magnesium Hydroxide (Milk Of Magnesia) 30 ml DAILY PO 01/01/20 09:00 01/03/20 08:47 Meperidine HCl (Demerol) 12.5 mg Q5MP PRN IV SHIVERING 12/31/19 16:15 12/31/19 17:15 DC 12/31/19 16:00 Morphine Sulfate (Morphine Sulfate Inj) 2 mg Q10M PRN IV PAIN LEVEL 4 TO 7 12/31/19 16:20 12/31/19 17:20 DC 12/31/19 16:23 Morphine Sulfate (Morphine Sulfate Inj) 2 mg Q2H PRN IV MODERATE PAIN (PS 5-7) 12/31/19 15:30 01/01/20 07:50 DC Morphine Sulfate (Morphine Sulfate Inj) 2 mg Q30M PRN IV MODERATE PAIN (PS 5-7) 12/30/19 14:15 12/31/19 15:27 DC 12/30/19 14:54 Morphine Sulfate (Morphine Sulfate Inj) 2 mg Q6HP PRN IV SEVERE PAIN (PS 8-10) 12/30/19 17:00 01/01/20 07:50 DC 12/31/19 05:46 Omeprazole (PriLOSEC) 40 mg BID PO 12/30/19 21:00 01/03/20 08:47 Ondansetron HCl (ZOFRAN INJection) 4 mg Q4H PRN IV NAUSEA OR VOMITING 12/31/19 15:30 01/02/20 11:53 Ondansetron HCl (ZOFRAN INJection) 4 mg Q4HP PRN IV NAUSEA OR VOMITING 12/31/19 15:30 12/31/19 16:30 DC Oxycodone/ Acetaminophen (Percocet 5mg/ 325mg Tablet) 1 tab Q6HP PRN PO MODERATE PAIN (PS 5-7) 12/30/19 17:00 01/03/20 05:56 Oxycodone/ Acetaminophen (Percocet 5mg/ 325mg Tablet) 2 tab Q4H PRN PO SEVERE PAIN (PS 8-10) 12/31/19 15:30 01/02/20 10:19 Polyethylene Glycol (Miralax) 1 pkt DAILY PO 01/01/20 09:00 01/02/20 10:12 Potassium Phos/ Sodium Phos (K-Phos Neutral) 250 mg BID PO 01/02/20 09:00 01/03/20 08:49 Prednisolone Acetate (Predforte 1% Ophth Susp) 1 drop QID OD 12/30/19 21:00 01/03/20 13:00 Rivaroxaban (Xarelto) 10 mg DAILY@18 PO 01/01/20 18:00 02/04/20 18:01 01/02/20 17:30 Senna/Docusate Sodium (Senokot S) 1 tab BID PO 01/01/20 09:00 01/03/20 08:47 Tolterodine Tartrate (Detrol) 4 mg BID PO 12/30/19 21:00 01/03/20 08:47 Valsartan (Diovan) 80 mg QPM PO 12/30/19 21:00 01/02/20 20:36 Verapamil HCl (Calan Sr) 180 mg DAILY PO 12/31/19 09:00 01/03/20 08:49 Allergies Coded Allergies: No Known Allergies (Unverified , 02/13/19) Karin Bales MD January 03, 2020 17:38
[2020-01-03] MEDS ORDERED: MOM 30ML SUSPENSION UDC PO PRN (17:45)
[2020-01-03] MEDS: DOCUSATE SODIUM 100 MG CAP PO SCH (20:34)
[2020-01-03] MEDS: VALSARTAN 80 MG TAB (DIOVAN) PO SCH (20:35)
[2020-01-03] MEDS: SENNA 8.6 MG TAB (SENOKOT) PO SCH (20:35)
[2020-01-03] MEDS: ACETAMINOPHEN TAB 650MG DOSE (2X325MG) PO PRN (20:36)
[2020-01-03 22:00] VITALS: BP 140/67
[2020-01-04 06:00] VITALS: BP 137/79
[2020-01-04 07:05] LABS: HEMATOCRIT 28.1 % (36.0-47.0); HEMOGLOBIN 9.3 g/dl (12.0-15.5); MEAN CORPUSCULAR HEMOGLOBIN 30.4 pg (27.0-33.0); MEAN CORPUSCULAR HGB CONC 33.1 g/dl (32.0-36.5); MEAN CORPUSCULAR VOLUME 91.8 fl (80.0-96.0); PLATELET COUNT, AUTOMATED 192 10^3/uL (150-450); RED BLOOD COUNT 3.06 10^6/uL (4.00-5.40); WHITE BLOOD COUNT 5.3 10^3/uL (4.0-10.0)
[2020-01-04 07:39] LABS: ALBUMIN 2.3 GM/DL (3.2-5.2); ALT/SGPT 19 U/L (12-78); BILIRUBIN,TOTAL 0.8 MG/DL (0.2-1.0); BLOOD UREA NITROGEN 15 MG/DL (7-18); CALCIUM LEVEL 7.9 MG/DL (8.8-10.2); CARBON DIOXIDE LEVEL 33 MEQ/L (21-32); CHLORIDE LEVEL 102 MEQ/L (98-107); CREATININE FOR GFR 0.48 MG/DL (0.55-1.30); GLOMERULAR FILTRATION RATE > 60.0 (>32); GLUCOSE, FASTING 90 MG/DL (70-100); MAGNESIUM LEVEL 1.9 MG/DL (1.8-2.4); PHOSPHORUS LEVEL 2.5 MG/DL (2.5-4.9); POTASSIUM SERUM 3.4 MEQ/L (3.5-5.1); SODIUM LEVEL 140 MEQ/L (136-145); TOTAL PROTEIN 5.5 GM/DL (6.4-8.2)
[2020-01-04] MEDS: MIRALAX *UNIT DOSE* 17GM PACKET PO SCH (09:00)
[2020-01-04] MEDS: prednisoLONE ACET 1% OPHTH SUSP 5ML OD SCH ×4 (09:00→21:28)
[2020-01-04] MEDS ORDERED: POTASSIUM CHLORIDE 10 MEQ SR TABLET PO ONE (09:00)
[2020-01-04] MEDS ORDERED: PERC5TAB12 PO (09:08)
[2020-01-04] MEDS ORDERED: XARE10TA PO (09:08)
[2020-01-04] MEDS: K-PHOS NEUTRAL 250MG TABLET (SOD.PHOSPHATE/POT.PHOSPHATE) PO SCH ×2 (09:13→21:28)
[2020-01-04] MEDS: DOCUSATE SODIUM 100 MG CAP PO SCH ×2 (09:13→21:28)
[2020-01-04] MEDS: OMEPRAZOLE 20 MG CAP PO SCH ×2 (09:13→21:28)
[2020-01-04] MEDS: FUROSEMIDE 20 MG TAB PO SCH (09:13)
[2020-01-04] MEDS: TOLTERODINE (DETROL) 2 MG TAB PO SCH ×2 (09:19→21:28)
[2020-01-04] MEDS: VERAPAMIL 180MG EXTENDED RELEASE TABLET PO SCH (09:22)
[2020-01-04] MEDS: PERCOCET 5MG/325MG TAB PO PRN ×2 (13:17→21:29)
[2020-01-04 14:00] VITALS: BP 152/76
--- NOTE | 2020-01-04 15:36 | IPNPDOC ---
Date Seen The patient was seen on 01/04/20. Progress Note SUBJECTIVE: Large BM this AM, potassium supplemented. Lasix decreased and will likely be able to be stopped by 01/05/20. Pain controlled. Denies chest pain, n/v/d, shortness of breath. OBJECTIVE: VITAL SIGNS: Please see below PHYSICAL EXAMINATION: CONSTITUTIONAL: Resting comfortably, AAO x 3 EYES: PERRLA, EOM intact HENT, MOUTH: Normocephalic, atraumatic, moist mucous membranes, NECK: SUPPLE, no JVD, no lymphadenopathy, no carotid bruit CV: Regular rate and rhythm, S1S2 normal, no murmurs/rubs/gallops RESPIRATORY: decreased crackles in bilateral lung bases, mild. No rales/rhonchi/ wheezes GI: BS positive in 4 quadrants, soft, nontender, nondistended, no rebound or guarding, no organomegaly : Deferred MUSCULOSKELETAL: Incisions of right hip clean, no increased erythema or warmth. Bruising present. No cyanosis, clubbing, joint deformity INTEGUMENTARY: Intact, no rashes, no lesions, no erythema NEUROLOGIC: Cranial Nerves II-XII are intact, no focal deficits PSYCHIATRIC: Mood and affect are normal LABORATORY DATA: Please see below IMAGING: No new imaging. ASSESSMENT: 84 y/o F admitted for mildly displaced right femoral neck fracture s/p hip cemented hemiarthroplasty. PLAN: 1. Right femoral neck fracture post-op day 4 right hip cemented hemiarthroplasty. C/w pain control with Percocet PRN based on pain scale, bowel regimen in place. PT/OT. 2. Constipation, baseline but worsened by narcotic use. BM this AM. C/w colace BID, senna 2 tabs PO HS, miralax daily. Encourage PO fluid intake, keep water at bedside. MOM PRN. 3. Low O2 saturation, atelectasis vs. fluid overload. Improved on RA. C/w lasix (stop 01/05/20), incentive spirometer. 3. Hypokalemia likely 2/2 to lasix. Replaced 40 mEq today, f/u AM labs. 4. HTN. Stable. C/w CCB, ARB, lasix. 5. Hypophosphatemia. Phos wnl. C/w K phos BID. F/u in AM. 6. Overactive bladder. Stable. C/w home medications 7. Osteoporosis. Not on supplementation, hx of treatment with Vitamin D. 8. Stable pulmonary nodule on CT scan, hx. F/u with PCP. 9. Venous insufficiency. Stable. 10. DVT px. Xarelto. DISPOSITION: Admitted under inpatient status. PT/OT, will need rehab. Discussed with team and [facility] for continued rehab is possibility after weekend. VS, I&O, 24H, Fishbone Vital Signs/I&O Vital Signs Date Time Temp Pulse Resp B/P (MAP) Pulse Ox O2 Delivery O2 Flow Rate FiO2 01/04/20 14:00 98.5 96 18 152/76 (101) 96 Room Air 01/01/20 07:43 1.0 I&O- Last 24 Hours up to 6 AM 01/04/20 06:00 Intake Total 1490 ml Output Total 900 ml Balance 590 ml Laboratory Data 24H LABS Laboratory Tests 2 01/04/20 06:38: Nucleated Red Blood Cells % (auto) 0.0, Anion Gap 5L, Glomerular Filtration Rate > 60.0, Calcium Level 7.9L, Phosphorus Level 2.5#, Magnesium Level 1.9, Total Bilirubin 0.8, Aspartate Amino Transf (AST/SGOT) 27, Alanine Aminotransferase (ALT/SGPT) 19, Alkaline Phosphatase 54, Total Protein 5.5L, Albumin 2.3L, Albumin/Globulin Ratio 0.72L CBC/BMP Laboratory Tests 01/04/20 06:38 Current Medications Current Medications Medications (Trade) Dose Ordered Sig/Akiko Route PRN Reason Start Time Stop Time Status Last Admin Dose Admin Acetaminophen (Tylenol Tab) 650 mg Q4HP PRN PO MILD PAIN (PS 1-4) 12/31/19 15:30 01/03/20 20:36 Cefazolin Sodium/ Dextrose 2 gm/IV Miscellaneous Supplies 50 ml @ 75 mls/hr Q8H IV 01/01/20 08:00 01/02/20 00:39 DC 01/01/20 23:54 Docusate Sodium (Colace) 100 mg BID PO 01/03/20 21:00 01/04/20 09:13 Enoxaparin Sodium (Lovenox) 30 mg DAILY@2100 SC 12/30/19 21:00 12/31/19 08:05 DC Fentanyl Citrate (Sublimaze) 25 mcg Q5MP PRN IV PAIN LEVEL 5-10 12/31/19 15:30 12/31/19 16:30 DC Furosemide (LASIX injection) 30 mg DAILY IV 01/02/20 09:00 01/04/20 07:49 DC 01/03/20 08:46 Furosemide (Lasix) 20 mg DAILY PO 01/04/20 09:00 01/04/20 09:13 Home Med (Med Rec Complete!) ASDIRECTED XX 12/30/19 15:45 12/30/19 15:43 DC Hydralazine HCl (Apresoline) 10 mg Q8H IV 12/30/19 18:00 Hold 01/01/20 10:15 Hydrochlorothiazide (Hydrodiuril) 12.5 mg QPM PO 12/30/19 21:00 12/30/19 16:44 DC Lactated Ringer's 1,000 ml @ 60 mls/hr [id number] IV 12/31/19 15:30 01/02/20 17:36 DC 01/01/20 23:54 Lactated Ringer's 1,000 ml @ 80 mls/hr [id number] IV 12/31/19 15:30 12/31/19 16:30 DC Magnesium Hydroxide (Milk Of Magnesia) 30 ml DAILY PO 01/01/20 09:00 01/03/20 17:35 DC 01/03/20 08:47 Magnesium Hydroxide (Milk Of Magnesia) 30 ml DAILYPRN PRN PO CONSTIPATION 01/03/20 17:45 Meperidine HCl (Demerol) 12.5 mg Q5MP PRN IV SHIVERING 12/31/19 16:15 12/31/19 17:15 DC 12/31/19 16:00 Morphine Sulfate (Morphine Sulfate Inj) 2 mg Q10M PRN IV PAIN LEVEL 4 TO 7 12/31/19 16:20 12/31/19 17:20 DC 12/31/19 16:23 Morphine Sulfate (Morphine Sulfate Inj) 2 mg Q2H PRN IV MODERATE PAIN (PS 5-7) 12/31/19 15:30 01/01/20 07:50 DC Morphine Sulfate (Morphine Sulfate Inj) 2 mg Q30M PRN IV MODERATE PAIN (PS 5-7) 12/30/19 14:15 12/31/19 15:27 DC 12/30/19 14:54 Morphine Sulfate (Morphine Sulfate Inj) 2 mg Q6HP PRN IV SEVERE PAIN (PS 8-10) 12/30/19 17:00 01/01/20 07:50 DC 12/31/19 05:46 Omeprazole (PriLOSEC) 40 mg BID PO 12/30/19 21:00 01/04/20 09:13 Ondansetron HCl (ZOFRAN INJection) 4 mg Q4H PRN IV NAUSEA OR VOMITING 12/31/19 15:30 01/02/20 11:53 Ondansetron HCl (ZOFRAN INJection) 4 mg Q4HP PRN IV NAUSEA OR VOMITING 12/31/19 15:30 12/31/19 16:30 DC Oxycodone/ Acetaminophen (Percocet 5mg/ 325mg Tablet) 1 tab Q6HP PRN PO MODERATE PAIN (PS 5-7) 12/30/19 17:00 01/03/20 05:56 Oxycodone/ Acetaminophen (Percocet 5mg/ 325mg Tablet) 2 tab Q4H PRN PO SEVERE PAIN (PS 8-10) 12/31/19 15:30 01/04/20 13:17 Polyethylene Glycol (Miralax) 1 pkt DAILY PO 01/01/20 09:00 01/02/20 10:12 Potassium Phos/ Sodium Phos (K-Phos Neutral) 250 mg BID PO 01/02/20 09:00 01/04/20 09:13 Prednisolone Acetate (Predforte 1% Ophth Susp) 1 drop QID OD 12/30/19 21:00 01/03/20 20:34 Rivaroxaban (Xarelto) 10 mg DAILY@18 PO 01/01/20 18:00 02/04/20 18:01 01/03/20 17:37 Senna (Senokot) 2 tab QHS PO 01/03/20 21:00 01/03/20 20:35 Senna/Docusate Sodium (Senokot S) 1 tab BID PO 01/01/20 09:00 01/03/20 17:32 DC 01/03/20 08:47 Tolterodine Tartrate (Detrol) 4 mg BID PO 12/30/19 21:00 01/04/20 09:19 Valsartan (Diovan) 80 mg QPM PO 12/30/19 21:00 01/03/20 20:35 Verapamil HCl (Calan Sr) 180 mg DAILY PO 12/31/19 09:00 01/04/20 09:22 Allergies Coded Allergies: No Known Allergies (Unverified , 02/13/19) Karin Bales MD January 04, 2020 15:36
[2020-01-04] MEDS: RIVAROXABAN 10 MG TAB (XARELTO) PO SCH (18:15)
[2020-01-04] MEDS: SENNA 8.6 MG TAB (SENOKOT) PO SCH (21:00)
[2020-01-04] MEDS: VALSARTAN 80 MG TAB (DIOVAN) PO SCH (21:00)
[2020-01-04 22:00] VITALS: BP 82/64
[2020-01-05 06:00] VITALS: BP 150/72
[2020-01-05 06:33] LABS: HEMATOCRIT 28.8 % (36.0-47.0); HEMOGLOBIN 9.6 g/dl (12.0-15.5); MEAN CORPUSCULAR HEMOGLOBIN 30.5 pg (27.0-33.0); MEAN CORPUSCULAR HGB CONC 33.3 g/dl (32.0-36.5); MEAN CORPUSCULAR VOLUME 91.4 fl (80.0-96.0); PLATELET COUNT, AUTOMATED 200 10^3/uL (150-450); RED BLOOD COUNT 3.15 10^6/uL (4.00-5.40); WHITE BLOOD COUNT 4.9 10^3/uL (4.0-10.0)
[2020-01-05 06:55] LABS: BLOOD UREA NITROGEN 14 MG/DL (7-18); CALCIUM LEVEL 7.7 MG/DL (8.8-10.2); CARBON DIOXIDE LEVEL 33 MEQ/L (21-32); CHLORIDE LEVEL 103 MEQ/L (98-107); GLOMERULAR FILTRATION RATE > 60.0 (>32); GLUCOSE, FASTING 100 MG/DL (70-100); MAGNESIUM LEVEL 1.9 MG/DL (1.8-2.4); POTASSIUM SERUM 3.7 MEQ/L (3.5-5.1); SODIUM LEVEL 140 MEQ/L (136-145)
[2020-01-05] MEDS: PERCOCET 5MG/325MG TAB PO PRN (08:38)
[2020-01-05] MEDS: FUROSEMIDE 20 MG TAB PO SCH (08:39)
[2020-01-05] MEDS: TOLTERODINE (DETROL) 2 MG TAB PO SCH (08:39)
[2020-01-05] MEDS: MIRALAX *UNIT DOSE* 17GM PACKET PO SCH (08:39)
[2020-01-05] MEDS: OMEPRAZOLE 20 MG CAP PO SCH (08:39)
[2020-01-05] MEDS: K-PHOS NEUTRAL 250MG TABLET (SOD.PHOSPHATE/POT.PHOSPHATE) PO SCH (08:39)
[2020-01-05] MEDS: DOCUSATE SODIUM 100 MG CAP PO SCH (08:39)
[2020-01-05] MEDS: prednisoLONE ACET 1% OPHTH SUSP 5ML OD SCH ×2 (08:40→11:50)
[2020-01-05 08:44] VITALS: BP 150/72
[2020-01-05] MEDS: VERAPAMIL 180MG EXTENDED RELEASE TABLET PO SCH (08:44)
--- NOTE | 2020-01-05 11:43 | DS.PDOC ---
Discharge Summary General Date of Admission December 30, 2019 at 16:30 Date of Discharge 01/05/20 Primary Care Physician: ADOLFO OCONNELL MD Attending Physician: Karin Bales MD Specialist/Consultants Involve: TRIPP DEY MD Discharge Summary CHIEF COMPLAINT: Fall, right hip pain HISTORY OF PRESENT ILLNESS: Patient is an 84 y/o F with PMH of osteoporosis, HTN, overactive bladder who presented to [facility] after fall and ongoing right hip pain. As per patient, at 10:45 this AM she was going to get in the car and she fell, landing on her right hip. Her helped her into the car. Pain was sharp, 10/10, intermittent worse with movement, no relieving factors. Patient then went about errands in the car with her . time went on, pain became more severe. She felt as if something was "unhinged". She attempted to get out of the car but could not. She called her PCP who advised her to come to the ER. Patient denies lightheadedness, dizziness, weakness, lethargy prior to this event. In the ER, VS showed patient hypertensive with BP 190-219/93-106, others stable. ROS as described below. CXR NAD. Femur XR showed mildly displaced right femoral neck fracture. Potassium low at 2.9. She was given 10 mg IV hydralazine, 1 mg morphine which improved pain to 5/10 on pain scale. Orthopedic surgery was called and will see patient. Patient was admitted for displaced right femoral neck fracture likely needing surgery, ambulatory dysfunction. HOSPITAL COURSE: The patient underwent right hip cemented hemiarthroplasty on 12/31/[address] Dey. Blood pressure and heart rate improved significan tly post surgery. She was restarted on several of her normal medications. There was a concern for atelectasis versus fluid overload and the patient was started on several days of Lasix. This in turn led to some hypokalemia which resolved by 01/05/2020. She was supplemented with potassium chloride several days of her hospital stay. She experienced some narcotic induced constipation and she was started on bowel regimen which helped. She continued to perform well with physical and occupational therapy. By 01/05/2020 the patient had no acute complaints and was stable for discharge to rehabilitation. She will be going to the ARU unit today. At the time of discharge the patient had no chest pain, shortness of breath, fevers, chills, nausea or vomiting. REVIEW OF SYSTEMS: CONSTITUTIONAL: Denies lack of energy, unexplained weight gain or weight loss, loss of appetite, fever, night sweats EYES: Denies eye drainage, eye pain, visual changes, dry/irritated eye EARS, NOSE, MOUTH, THROAT: Denies difficulty hearing, ringing in ears, mouth sores, loose teeth, sore throat, facial numbness or pain NECK: Denies swollen glands CARDIOVASCULAR: Denies irregular heartbeat, racing heart, chest pains, swelling of feet or legs RESPIRATORY: Denies shortness of breath, night sweats, wheezing, sputum p roduction, oxygen at home, coughing up blood, cough lasting > 1 month GASTROINTESTINAL: Denies abdominal pain, constipation, bloody stool, diarrhea, heartburn, nausea, vomiting GENITOURINARY: Denies painful urination, bloody urine, frequent urination, urgency, leaking urine, impotence MUSCULOSKELETAL: Denies joint pain, muscle pain, leg swelling INTEGUMENTARY: Denies rash, itching, new skin lesion, change in existing skin lesion, hair loss or increase, breast changes. NEUROLOGICAL: Denies headaches, dizziness, difficulty walking, numbness or tingling PSYCHIATRIC: Denies depression, anxiety, recurrent bad thoughts, mood swings, hallucinations PAST MEDICAL HISTORY: 1. Hypertension. 2. Overactive bladder. 3. Osteopenia. 4. Stable pulmonary nodule on repeat CT scan. 5. Seasonal asthma with allergies. 6. Dry eye. 7. Venous insufficiency to left lower extremity. 8. GERD PAST SURGICAL HISTORY: 1. Colonoscopy with Dr. Garnett in 2010. 2. Cyst removed from ankle and lower leg in 2011. 3. Cystoscopy. 4. Esophagogastroduodenoscopy (EGD) in July of [address] Ridley. FAMILY HISTORY: Father at 78 years of age due to kidney failure. Mother at 81 years of age due to cerebrovascular disease. Siblings have a history of cardiac disease. SOCIAL HISTORY: The patient is a former smoker, has not smoked cigarettes in well over 10 years. The patient drinks alcohol on a social basis, one to two drinks, two to three times per week. Denies recreational drug use. Uses one to two cups of coffee per day. Lives with her . Eats a regular diet. Walks routinely and remains very active. ALLERGIES: Please see below. HOME MEDICATIONS: Please see below. PHYSICAL EXAMINATION: CONSTITUTIONAL: Resting comfortably, AAO x 3 EYES: PERRLA, EOM intact HENT, MOUTH: Normocephalic, atraumatic, moist mucous membranes, NECK: SUPPLE, no JVD, no lymphadenopathy, no carotid bruit CV: Regular rate and rhythm, S1S2 normal, no murmurs/rubs/gallops RESPIRATORY: CTAB, No rales/rhonchi/wheezes GI: BS positive in 4 quadrants, soft, nontender, nondistended, no rebound or guarding, no organomegaly : Deferred MUSCULOSKELETAL: Incision of right hip clean, no increased erythema or warmth. Bruising present. No cyanosis, clubbing, joint deformity INTEGUMENTARY: Intact, no rashes, no lesions, no erythema NEUROLOGIC: Cranial Nerves II-XII are intact, no focal deficits PSYCHIATRIC: Mood and affect are normal LABORATORY DATA: Please see below IMAGING: PELVIS AND RIGHT HIP XR: Mildly displaced right femoral neck fracture. RIGHT HIP TWO VIEWS: Two views of the right hip are performed. There is a metallic prosthesis in the proximal right femur. It is well positioned with the prostatic femoral head in the acetabulum. The osseous structures are intact and well aligned. ASSESSMENT: 84 y/o F admitted for mildly displaced right femoral neck fracture s/p hip cemented hemiarthroplasty. PLAN: 1. Right femoral neck fracture post-op day 5 right hip cemented hemiarthroplasty. C/w xarelto BID, pain control with Percocet PRN based on pain scale, bowel regimen in place. PT/OT with activity per orthopedic surgery recommendations. 2. Constipation, baseline but worsened by narcotic use. Improved. C/w colace BID, senna 2 tabs PO HS, miralax daily. Encourage PO fluid intake, keep water at bedside. MOM PRN. 3. Atelectasis vs. fluid overload. Improved on RA and lasix (stop 01/06/20), incentive spirometer. 3. Hypokalemia likely 2/2 to lasix. Resolved. 4. HTN. Stable and improved. C/w home medication. 5. Hypophosphatemia. Phos wnl. C/w K phos BID. F/u in AM. 6. Overactive bladder. Stable. C/w home medications 7. Osteoporosis. Not on supplementation, hx of treatment with Vitamin D. 8. Stable pulmonary nodule on CT scan, hx. F/u with PCP. 9. Venous insufficiency. Stable. 10. DVT px. Xarelto. DISPOSITION: Discharging today to ARU. F/u with Dr. Dey, orthopedic surgery, in 2 weeks. TIME SPENT ON DISCHARGE: 35 mins . Vital Signs/I&Os Vital Signs Date Time Temp Pulse Resp B/P (MAP) Pulse Ox O2 Delivery O2 Flow Rate FiO2 01/05/20 09:08 18 01/05/20 08:44 79 150/72 01/05/20 06:00 99.2 95 Room Air 01/01/20 07:43 1.0 I&O- Last 24 Hours up to 6 AM 01/05/20 05:59 Intake Total 1760 ml Output Total 1550 ml Balance 210 ml Laboratory Data Labs 24H Laboratory Tests 2 01/05/20 06:24: Nucleated Red Blood Cells % (auto) 0.0, Anion Gap 4L, Glomerular Filtration Rate > 60.0, Calcium Level 7.7L, Phosphorus Level 3.0, Magnesium Level 1.9 CBC/BMP Laboratory Tests 01/05/20 06:24 Discharge Medications Scheduled Omeprazole (Omeprazole) 40 Mg Capsule.dr, 40 MG PO BID, (Reported) Prednisolone Acetate (Prednisolone Acetate 1% Opth Susp) 5 Ml Drops.susp, 1 DROP OD QID, (Reported) Rivaroxaban (Xarelto) 10 Mg Tablet, 10 MG PO DAILY Tolterodine Tartrate (Detrol) 2 Mg Tablet, 4 MG PO BID, (Reported) Valsartan/Hydrochlorothiazide (Valsartan-Hctz 80-12.5 mg Tab) 1 Each Tablet, 1 TAB PO QPM, (Reported) TAKES AT 1600 Verapamil HCl (Verapamil ER) 180 Mg Tab, 180 MG PO DAILY, (Reported) Scheduled PRN Oxycodone HCl/Acetaminophen (Percocet 5-325 mg Tablet) 1 Each Tablet, 1 TAB PO Q4H PRN for PAIN Allergies Coded Allergies: No Known Allergies (Unverified , 02/13/19) Karin Bales MD January 05, 2020 11:43
[2020-01-05 14:00] VITALS: BP_SYST 133; BP_SYST 90; BP_DIAS 56; BP_DIAS 73
== END 2020-01-05 16:30 | DRG 470 ==
LOC: M ED 13:44 → M ED INP 16:30 → ENRESERV 16:43 → M PCU 17:10 → M MS5PR 01-02 14:53
PROVIDERS: ADMIT Internal Medicine; ATTEND Internal Medicine
PROC: 0SRR0J9 Replacement of Right Hip Joint, Femoral Surface with Synthetic Substitute, Cemented, Open Approach (ICD-10-PCS; principal; 2019-12-31 13:00)
DX: S72.001A Fracture of unspecified part of neck of right femur, initial encounter for closed fracture (principal); J98.11 Atelectasis; M81.0 Age-related osteoporosis without current pathological fracture; I10 Essential (primary) hypertension; N32.81 Overactive bladder; W18.30XA Fall on same level, unspecified, initial encounter; Y92.014 Private driveway to single-family (private) house as the place of occurrence of the external cause; M85.80 Other specified disorders of bone density and structure, unspecified site; R91.1 Solitary pulmonary nodule; J45.909 Unspecified asthma, uncomplicated; H04.129 Dry eye syndrome of unspecified lacrimal gland; E87.6 Hypokalemia; E83.39 Other disorders of phosphorus metabolism; E83.42 Hypomagnesemia; K59.09 Other constipation; T40.605A Adverse effect of unspecified narcotics, initial encounter; I87.2 Venous insufficiency (chronic) (peripheral); E87.70 Fluid overload, unspecified; K21.9 Gastro-esophageal reflux disease without esophagitis; Z87.891 Personal history of nicotine dependence; Z79.52 Long term (current) use of systemic steroids; Z79.899 Other long term (current) drug therapy

== ENCOUNTER 2020-01-05 15:43 | Inpatient (IN) | payer MEDICARE, OTHER ==
[~2020-01-05] VITALS: Ht 170.2 cm; Wt 54.9 kg
[~2020-01-05 15:43] MED LIST changes: +IBUP200T45 PO; +OMEP-221 PO; +PERC5TAB12 PO; +PREDOPD OD; +TOLT2TAB12 PO; +VALS80TA PO; +XARE10TA PO
[2020-01-05 16:42] VITALS: BP 145/83
[2020-01-05] MEDS ORDERED: ONDANSETRON 4 MG ORAL DISINTEGRATING TAB PO PRN (17:00)
[2020-01-05] MEDS: prednisoLONE ACET 1% OPHTH SUSP 5ML OD SCH ×2 (17:00→21:00)
[2020-01-05] MEDS ORDERED: BISACODYL 10 MG SUPP PR PRN (17:00)
[2020-01-05] MEDS: RIVAROXABAN 10 MG TAB (XARELTO) PO SCH (17:40)
[2020-01-05] MEDS: REMEDY PHYTOPLEX Z-GUARD PASTE 113GM TUBE (FROM STOREROOM PRODUCT) TOP SCH (21:00)
[2020-01-05] MEDS: TOLTERODINE (DETROL) 2 MG TAB PO SCH (21:27)
[2020-01-05] MEDS: K-PHOS NEUTRAL 250MG TABLET (SOD.PHOSPHATE/POT.PHOSPHATE) PO SCH (21:27)
[2020-01-05] MEDS: ACETAMINOPHEN 500 MG TAB PO SCH (21:28)
[2020-01-05] MEDS: OMEPRAZOLE 20 MG CAP PO SCH (21:28)
[2020-01-05 21:29] VITALS: BP 176/86
[2020-01-05] MEDS: oxyCODONE 5MG TAB PO PRN (21:29)
[2020-01-05] MEDS: SENNA 8.6 MG TAB (SENOKOT) PO SCH (21:29)
[2020-01-05] MEDS: DOCUSATE SODIUM 100 MG CAP PO SCH (21:29)
[2020-01-05] MEDS: VALSARTAN 80 MG TAB (DIOVAN) PO SCH (21:31)
[2020-01-05 22:25] VITALS: BP 154/74
[2020-01-06 06:15] VITALS: BP 173/92
[2020-01-06 06:30] LABS: BASO # 0.1 10^3/uL (0.0-0.2); BASO % 1.1 % (0.0-1.0); EOS # 0.2 10^3/uL (0.0-0.5); EOS % 4.1 % (0.0-3.0); HEMATOCRIT 29.7 % (36.0-47.0); HEMOGLOBIN 9.9 g/dl (12.0-15.5); LYMPH # 0.9 10^3/uL (1.5-5.0); LYMPH % 21.5 % (24.0-44.0); MEAN CORPUSCULAR HEMOGLOBIN 30.5 pg (27.0-33.0); MEAN CORPUSCULAR HGB CONC 33.3 g/dl (32.0-36.5); MEAN CORPUSCULAR VOLUME 91.4 fl (80.0-96.0); MONO # 0.5 10^3/uL (0.0-0.8); NEUTROPHILS # 2.7 10^3/uL (1.5-8.5); NEUTROPHILS % 62.1 % (36.0-66.0); PLATELET COUNT, AUTOMATED 250 10^3/uL (150-450); RED BLOOD COUNT 3.25 10^6/uL (4.00-5.40); WHITE BLOOD COUNT 4.4 10^3/uL (4.0-10.0)
[2020-01-06] MEDS: oxyCODONE 5MG TAB PO PRN ×2 (06:34→13:01)
[2020-01-06] MEDS: **hydrALAZINE HCL** 25 MG TAB PO PRN ×2 (06:35→14:36)
[2020-01-06 06:58] LABS: ALBUMIN 2.6 GM/DL (3.2-5.2); ALT/SGPT 17 U/L (12-78); BILIRUBIN,TOTAL 0.8 MG/DL (0.2-1.0); BLOOD UREA NITROGEN 12 MG/DL (7-18); CALCIUM LEVEL 8.2 MG/DL (8.8-10.2); CARBON DIOXIDE LEVEL 32 MEQ/L (21-32); CHLORIDE LEVEL 102 MEQ/L (98-107); CREATININE FOR GFR 0.48 MG/DL (0.55-1.30); GLOMERULAR FILTRATION RATE > 60.0 (>32); GLUCOSE, FASTING 88 MG/DL (70-100); POTASSIUM SERUM 3.6 MEQ/L (3.5-5.1); SODIUM LEVEL 139 MEQ/L (136-145); TOTAL PROTEIN 6.3 GM/DL (6.4-8.2)
[2020-01-06 07:01] VITALS: BP 136/72
[2020-01-06] MEDS: DOCUSATE SODIUM 100 MG CAP PO SCH ×2 (08:10→21:10)
[2020-01-06] MEDS: MIRALAX *UNIT DOSE* 17GM PACKET PO SCH (08:10)
[2020-01-06] MEDS: OMEPRAZOLE 20 MG CAP PO SCH ×2 (08:10→21:10)
[2020-01-06] MEDS: K-PHOS NEUTRAL 250MG TABLET (SOD.PHOSPHATE/POT.PHOSPHATE) PO SCH ×2 (08:10→21:11)
[2020-01-06] MEDS: TOLTERODINE (DETROL) 2 MG TAB PO SCH ×2 (08:11→21:11)
[2020-01-06] MEDS: VERAPAMIL 180MG EXTENDED RELEASE TABLET PO SCH (08:11)
[2020-01-06] MEDS: FUROSEMIDE 20 MG TAB PO SCH (08:13)
[2020-01-06] MEDS: REMEDY PHYTOPLEX Z-GUARD PASTE 113GM TUBE (FROM STOREROOM PRODUCT) TOP SCH ×3 (08:13→21:00)
[2020-01-06] MEDS: ACETAMINOPHEN 500 MG TAB PO SCH ×3 (08:13→21:00)
[2020-01-06] MEDS: hydroCHLOROthiazide 12.5 MG CAPSULE PO SCH (08:13)
[2020-01-06] MEDS: prednisoLONE ACET 1% OPHTH SUSP 5ML OD SCH ×4 (08:14→21:11)
[2020-01-06 14:00] VITALS: BP 163/77
--- NOTE | 2020-01-06 15:20 | HPEPDOC ---
Cluster Bore Operator Note DATE OF ADMISSION: 01-05-20 DATE OF SERVICE: 01-06-20 TIME OF ADMISSION: Please refer to physician's admission order. SOURCE OF ADMISSION INFORMATION: [facility] record and patient CHIEF COMPLAINT:hip fracture HISTORY OF PRESENT ILLNESS: 84F pmh HTN, overactive bladder, GERD, and osteoporosis who fell at home onto her right side presenting to [facility] ED on 12-30-19 complaining of pain and difficulty walking. Hip x-ray showed, Mildly displaced right femoral neck fracture. She was evaluated by orthopedics who performed a right hip shoshana-arthroplasty on 12-31-19 without immediate complication. She developed post-op anemia and was started on DVT prophylaxis. She was evaluated by therapy, found to be below her prior level of function and deemed medically appropriate for discharge to ARU on 01-05-20. REVIEW OF SYSTEMS: The following is a completed review of systems and has been reviewed. Review of systems otherwise unremarkable. PAIN: Patient self reports right hip pain EYES: No recent vision changes EARS, NOSE, & THROAT: No throat pain, or dysphagia, or rhinorrhea CARDIOVASCULAR: Denies chest pain or palpitations. PULMONARY: Denies shortness of breath GASTROINTESTINAL: Denies constipation/diarrhea GENITOURINARY: denies dysuria, +over active bladder MUSCULOSKELETAL: RLE weakness. NEUROLOGICAL:denies paresthesias HEMATOLOGICAL: +anemia SKIN: right hip incision PSYCHIATRIC: Unremarkable All other review of systems found to be negative. PAST MEDICAL HISTORY: as per HPI PAST SURGICAL HISTORY: Cystoscopy, colonoscopy, EGD ALLERGIES: Please see below. MEDICATIONS: Please see below. FAMILY HISTORY:cardiac SOCIAL HISTORY: Former smoker, social ETOH, no illicit drugs DIET: 2 gram low sodium, fluid restrict PHYSICAL EXAMINATION: VITAL SIGNS: Please see below. GENERAL: Pleasant and cooperative. No acute distress. HEENT: PERRL. Extraocular movements intact. Clear conjunctiva CARDIOVASCULAR: Regular rate and rhythm. No murmurs, rubs, or gallops LUNGS: Clear to auscultation bilaterally. No wheezes. No rhonchi ABDOMEN: Soft, nontender, nondistended. Positive bowel sounds. Normal active bowel sounds NEUROLOGICAL: Alert and oriented times three. Cranial nerves II through XII grossly intact. Sensation grossly intact EXTREMITIES: 5\5 strength bilateral upper extremities. 5\5 strength right ankle DF/PF, and EHL (limited due to surgery)5/5 strength in left lower extremity. mild RLE edema SKIN: right hip incision without induration, +serous drainage LABORATORY DATA: Please see below. IMAGING:Imaging documentation personally reviewed by record FUNCTIONAL STATUS: Premorbid: Independent with all activities of daily life as well as mobility On Admission: Contact guard ambulating 20 feet with RW, contact guard functional transfers, standby assist for dressing GOALS: Mod-I community distances ambulation, stairs, functional transfers, dressing, bathing, toileting, grooming ASSESSMENT:84-year-old F with past medical history of HTN and osteoporosis who presents status post right hip fracture PLAN: 1. Rehab- PT/OT advance gait and ADl training, maintain hip precautions, strengthen/stretch/maintain ROM all 4 limbs 2. Neuro: no active issues 3. Cardiac: hx of HTN c/u Diovan and verapamil, prn hydralazine ordered -most recent ECH showing chronic diastolic dysfunction- c/u lasix, HCTZ, fluid restrict, daily weights -medicine consulted to assist in overall management 4. Resp: encourage incentive spirometry, monitor for infection -f/u pulmonary nodule with PCP 5. Ortho: s/p right hip shoshana-arthroplasty- ortho consulted 6. DVT ppx: xarelto and teds 7. GI ppx: prilosec 20mg BID 8. : overactive bladder c/u Detrol 9. Pain: Tylebnol and oxycodone orn 10. Dispo: TBD POST ADMISSION PHYSICIAN EVALUATION: Medical and functional status: Description of medical status, medical assessment: As above. Rehabilitation diagnosis and current and prior cold morbid medical conditions as above. Risk of complications and plans to mitigate them as above. Description of functional status current status is as above. Prior status as above. Status compared to preadmission: There are no clinically significant differences between the patient's current status and the information described on the preadmission screening document. Treatment plan anticipated: Treatment plan is as described above. Required disciplines including physical therapy, occupational therapy, others as noted above Intensity of services: 3 hours a day, 6 days a week. Special considerations: There are no specific special or safety considerations that would likely preclude immediate implementation of an intensive rehabilitation program or subsequently influence the plan of care. ATTESTATION: Considering all the information above, it is my best judgment that this patient requires intensive rehabilitation therapy as described above and an inpatient hospital environment due to the complexity of nursing, medical, and rehabilitation needs required by the patient. Furthermore, this patient can reasonably be expected to participate in an benefit from an inpatient rehabilitation stay with an interdisciplinary team approach to the delivery of rehabilitation care under the direction and supervision of rehabilitation physician. PROGNOSIS: Excellent ESTIMATED LENGTH OF STAY: 7-10 days. PROJECTED DISCHARGE DESTINATION: Home with family support and any durable medical equipment required to increase functional safety and mobility TIME SPENT COUNSELING AND COORDINATING INITIAL CARE: Greater than 70 minutes. Vital Signs Vital Sign - Last 24 Hours 01/05/20 01/05/20 01/05/20 01/05/20 16:42 21:29 21:29 21:29 Temp 98.5 98.9 Pulse 106 100 Resp 18 18 18 18 B/P (MAP) 145/83 (103) 176/86 (116) Pulse Ox 98 97 97 O2 Delivery Room Air Room Air 01/05/20 01/05/20 01/05/20 01/06/20 21:31 22:25 22:27 06:15 Temp 98.8 Pulse 91 Resp 18 18 B/P (MAP) 176/86 154/74 (100) 173/92 (119) Pulse Ox 96 O2 Delivery Room Air 01/06/20 01/06/20 01/06/20 01/06/20 06:34 06:35 07:01 07:18 Resp 18 18 B/P (MAP) 173/94 136/72 (93) 01/06/20 01/06/20 01/06/20 01/06/20 08:11 13:01 13:52 14:00 Temp 98.2 Pulse 107 95 Resp 19 18 20 B/P (MAP) 141/69 163/77 (105) Pulse Ox 96 O2 Delivery Room Air 01/06/20 14:36 B/P (MAP) 163/77 Laboratory Data CBC/BMP Laboratory Tests 01/06/20 06:06 Labs 24H Laboratory Tests 2 01/06/20 06:06: Immature Granulocyte % (Auto) 0.2, Neutrophils (%) (Auto) 62.1, Lymphocytes (%) (Auto) 21.5L, Monocytes (%) (Auto) 11.0H, Eosinophils (%) (Auto) 4.1H, Basophils (%) (Auto) 1.1H, Neutrophils # (Auto) 2.7, Lymphocytes # (Auto) 0.9L, Monocytes # (Auto) 0.5, Eosinophils # (Auto) 0.2, Basophils # (Auto) 0.1, Nucleated Red Blood Cells % (auto) 0.0, Anion Gap 5L, Glomerular Filtration Rate > 60.0, Calcium Level 8.2L, Total Bilirubin 0.8, Aspartate Amino Transf (AST/SGOT) 24, Alanine Aminotransferase (ALT/SGPT) 17, Alkaline Phosphatase 58, Total Protein 6.3L, Albumin 2.6L, Albumin/Globulin Ratio 0.70L Home Medications Scheduled Omeprazole (Omeprazole) 40 Mg Capsule.dr, 40 MG PO BID, (Reported) Prednisolone Acetate (Prednisolone Acetate 1% Opth Susp) 5 Ml Drops.susp, 1 DROP OD QID, (Reported) Rivaroxaban (Xarelto) 10 Mg Tablet, 10 MG PO DAILY Tolterodine Tartrate (Detrol) 2 Mg Tablet, 4 MG PO BID, (Reported) Valsartan/Hydrochlorothiazide (Valsartan-Hctz 80-12.5 mg Tab) 1 Each Tablet, 1 TAB PO QPM, (Reported) TAKES AT 1600 Verapamil HCl (Verapamil ER) 180 Mg Tab, 180 MG PO DAILY, (Reported) Scheduled PRN Oxycodone HCl/Acetaminophen (Percocet 5-325 mg Tablet) 1 Each Tablet, 1 TAB PO Q4H PRN for PAIN Allergies Coded Allergies: No Known Allergies (Unverified , 02/13/19) A-FIB/CHADSVASC A-FIB History Current/History of A-Fib/PAF?: No MINDY SANCHES MD January 06, 2020 15:20
[2020-01-06] MEDS: RIVAROXABAN 10 MG TAB (XARELTO) PO SCH (17:20)
[2020-01-06 19:05] VITALS: BP 107/61
--- NOTE | 2020-01-06 19:05 | IPNPDOC ---
Text Note Date of Service The patient was seen on 01/06/20. NOTE Subjective: No any acute events overnight. She stated that she is a little bit tired after physical therapy PHYSICAL EXAMINATION: CONSTITUTIONAL: Resting comfortably, AAO x 3 EYES: PERRLA, EOM intact HENT, MOUTH: Normocephalic, atraumatic, moist mucous membranes, NECK: SUPPLE, no JVD, no lymphadenopathy, no carotid bruit CV: Regular rate and rhythm, S1S2 normal, no murmurs/rubs/gallops RESPIRATORY: decreased crackles in bilateral lung bases, mild. No rales/rhonchi/wheezes GI: BS positive in 4 quadrants, soft, nontender, nondistended, no rebound or guarding, no organomegaly : Deferred MUSCULOSKELETAL: Incisions of right hip clean, no increased erythema or warmth. Bruising present. No cyanosis, clubbing, joint deformity INTEGUMENTARY: Intact, no rashes, no lesions, no erythema NEUROLOGIC: Cranial Nerves II-XII are intact, no focal deficits PSYCHIATRIC: Mood and affect are normal Assessment and plan Patient is 84 years old female who was transferred to ARU after hip cemented hemiarthroplasty. right hip cemented hemiarthroplasty Continue physical therapy Pain management Continue oral targeted anticoagulation HTN. Blood pressures under control C/w CCB, ARB, lasix. Overactive bladder. C/w home medications Osteoporosis Vitamin D Calcium supplementation Normocytic anemia Will check B12, folate, iron studies GERD Continue PPI VS,Fishbone, I+O VS, Fishbone, I+O Laboratory Tests 01/06/20 06:06 Vital Signs Date Time Temp Pulse Resp B/P (MAP) Pulse Ox O2 Delivery O2 Flow Rate FiO2 01/06/20 14:36 163/77 01/06/20 14:00 98.2 95 20 96 Room Air I&O- Last 24 Hours up to 6 AM 01/06/20 05:59 Intake Total 50 ml Output Total 400 ml Balance -350 ml MACRINA YUSUF DO January 06, 2020 19:05
[2020-01-06 20:21] LABS: PERCENT SATURATION 7.5 % (13.2-45.0)
[2020-01-06 20:30] VITALS: BP 150/69
[2020-01-06 20:34] LABS: FOLATE 20.9 NG/ML (>5.4)
[2020-01-06] MEDS: SENNA 8.6 MG TAB (SENOKOT) PO SCH (21:10)
[2020-01-06] MEDS: VALSARTAN 80 MG TAB (DIOVAN) PO SCH (21:10)
[2020-01-07] MEDS: oxyCODONE 5MG TAB PO PRN (00:06)
[2020-01-07] MEDS: **hydrALAZINE HCL** 25 MG TAB PO PRN (05:48)
[2020-01-07 05:50] VITALS: BP 172/79
[2020-01-07 06:24] VITALS: BP 154/72
[2020-01-07 06:47] LABS: BASO # 0.1 10^3/uL (0.0-0.2); EOS # 0.2 10^3/uL (0.0-0.5); EOS % 4.4 % (0.0-3.0); HEMATOCRIT 28.7 % (36.0-47.0); HEMOGLOBIN 9.5 g/dl (12.0-15.5); LYMPH # 1.2 10^3/uL (1.5-5.0); LYMPH % 24.4 % (24.0-44.0); MEAN CORPUSCULAR HEMOGLOBIN 30.1 pg (27.0-33.0); MEAN CORPUSCULAR HGB CONC 33.1 g/dl (32.0-36.5); MEAN CORPUSCULAR VOLUME 90.8 fl (80.0-96.0); MONO # 0.6 10^3/uL (0.0-0.8); MONO % 11.4 % (0.0-5.0); NEUTROPHILS # 2.9 10^3/uL (1.5-8.5); NEUTROPHILS % 58.6 % (36.0-66.0); PLATELET COUNT, AUTOMATED 270 10^3/uL (150-450); RED BLOOD COUNT 3.16 10^6/uL (4.00-5.40)
[2020-01-07 07:07] LABS: BLOOD UREA NITROGEN 14 MG/DL (7-18); CALCIUM LEVEL 8.6 MG/DL (8.8-10.2); CARBON DIOXIDE LEVEL 29 MEQ/L (21-32); CHLORIDE LEVEL 103 MEQ/L (98-107); CREATININE FOR GFR 0.53 MG/DL (0.55-1.30); GLOMERULAR FILTRATION RATE > 60.0 (>32); GLUCOSE, FASTING 90 MG/DL (70-100); POTASSIUM SERUM 3.8 MEQ/L (3.5-5.1); SODIUM LEVEL 139 MEQ/L (136-145)
[2020-01-07] MEDS: OMEPRAZOLE 20 MG CAP PO SCH ×2 (08:14→20:38)
[2020-01-07] MEDS: ACETAMINOPHEN 500 MG TAB PO SCH ×3 (08:14→20:38)
[2020-01-07] MEDS: K-PHOS NEUTRAL 250MG TABLET (SOD.PHOSPHATE/POT.PHOSPHATE) PO SCH ×2 (08:14→20:40)
[2020-01-07] MEDS: DOCUSATE SODIUM 100 MG CAP PO SCH ×2 (08:14→20:38)
[2020-01-07] MEDS: hydroCHLOROthiazide 12.5 MG CAPSULE PO SCH (08:15)
[2020-01-07] MEDS: MIRALAX *UNIT DOSE* 17GM PACKET PO SCH (08:15)
[2020-01-07] MEDS: prednisoLONE ACET 1% OPHTH SUSP 5ML OD SCH ×4 (08:15→20:41)
[2020-01-07] MEDS: VERAPAMIL 180MG EXTENDED RELEASE TABLET PO SCH (08:15)
[2020-01-07] MEDS: TOLTERODINE (DETROL) 2 MG TAB PO SCH ×2 (08:15→20:39)
[2020-01-07] MEDS: FUROSEMIDE 20 MG TAB PO SCH (08:15)
[2020-01-07] MEDS: REMEDY PHYTOPLEX Z-GUARD PASTE 113GM TUBE (FROM STOREROOM PRODUCT) TOP SCH ×3 (08:16→20:41)
[2020-01-07 14:00] VITALS: BP 115/59
--- NOTE | 2020-01-07 14:45 | IPNPDOC ---
PM&R Progress Note DATE OF SERVICE: January 07, 2020 Lead Process Engineer Progress Note Subjective: Patient reporting she feels well, she is eager to get back home and to be as active as she once was. REVIEW OF SYSTEMS: The following is a completed review of systems and has been reviewed. Review of systems otherwise unremarkable. PAIN: Patient self reports right hip pain EYES: No recent vision changes EARS, NOSE, & THROAT: No throat pain, or dysphagia, or rhinorrhea CARDIOVASCULAR: Denies chest pain or palpitations. PULMONARY: Denies shortness of breath GASTROINTESTINAL: Denies constipation/diarrhea GENITOURINARY: denies dysuria, +over active bladder MUSCULOSKELETAL: RLE weakness. NEUROLOGICAL:denies paresthesias HEMATOLOGICAL: +anemia SKIN: right hip incision PSYCHIATRIC: Unremarkable All other review of systems found to be negative. PHYSICAL EXAMINATION: VITAL SIGNS: Please see below. GENERAL: Pleasant and cooperative. No acute distress. HEENT: PERRL. Extraocular movements intact. Clear conjunctiva CARDIOVASCULAR: Regular rate and rhythm. No murmurs, rubs, or gallops LUNGS: Clear to auscultation bilaterally. No wheezes. No rhonchi ABDOMEN: Soft, nontender, nondistended. Positive bowel sounds. Normal active bowel sounds NEUROLOGICAL: Alert and oriented times three. Cranial nerves II through XII grossly intact. Sensation grossly intact EXTREMITIES: 5\5 strength bilateral upper extremities. 5\5 strength right ankle DF/PF, and EHL (limited due to surgery)5/5 strength in left lower extremity. mild RLE edema (-) Cindi's SKIN: right hip incision without induration, +serous drainage ASSESSMENT:84-year-old F with past medical history of HTN and osteoporosis who presents status post right hip fracture PLAN: 1. Rehab- PT/OT advance gait and ADl training, maintain hip precautions, strengthen/stretch/maintain ROM all 4 limbs-ambulating with RW 2. Neuro: no active issues 3. Cardiac: hx of HTN c/u Diovan (change timing to 5pm as this is whens he takes it at home) and verapamil, prn hydralazine ordered -most recent ECHO showing chronic diastolic dysfunction- c/u lasix, will increase HCTZ to help with elevated BPs, fluid restrict, daily weights -medicine consulted to assist in overall management 4. Resp: encourage incentive spirometry, monitor for infection -f/u pulmonary nodule with PCP 5. Ortho: s/p right hip shoshana-arthroplasty- ortho consulted 6. DVT ppx: xarelto and teds 7. GI ppx: prilosec 20mg BID 8. : overactive bladder c/u Detrol 9. Pain: Tylebnol and oxycodone prn 10. Dispo: TBD Allergies Coded Allergies: No Known Allergies (Unverified , 02/13/19) Vital Signs Vital Signs Date Time Temp Pulse Resp B/P (MAP) Pulse Ox O2 Delivery O2 Flow Rate FiO2 01/07/20 14:00 98.1 86 18 115/59 (77) 98 Room Air Laboratory Data CBC/BMP Laboratory Tests 01/07/20 06:23 Labs 24H Laboratory Tests 2 01/06/20 19:42: Iron Level 17L, Total Iron Binding Capacity 226L, Transferrin % Saturation 7.5L, Vitamin B12 Level 465, Folate 20.9 01/07/20 06:23: Immature Granulocyte % (Auto) 0.2, Neutrophils (%) (Auto) 58.6, Lymphocytes (%) (Auto) 24.4, Monocytes (%) (Auto) 11.4H, Eosinophils (%) (Auto) 4.4H, Basophils (%) (Auto) 1.0, Neutrophils # (Auto) 2.9, Lymphocytes # (Auto) 1.2L, Monocytes # (Auto) 0.6, Eosinophils # (Auto) 0.2, Basophils # (Auto) 0.1, Nucleated Red Blood Cells % (auto) 0.0, Anion Gap 7L, Glomerular Filtration Rate > 60.0, Calcium Level 8.6L Current Medications Current Medications Current Medications Medications (Trade) Dose Ordered Sig/Akiko Route PRN Reason Start Time Stop Time Status Last Admin Dose Admin Acetaminophen (Tylenol Tab) 1,000 mg TID PO 01/05/20 21:00 01/07/20 08:14 Bisacodyl (Dulcolax Suppository) 10 mg DAILYPRN PRN [place] CONSTIPATION 01/05/20 17:00 Docusate Sodium (Colace) 100 mg BID PO 01/05/20 21:00 01/07/20 08:14 Furosemide (Lasix) 20 mg DAILY PO 01/06/20 09:00 01/07/20 08:15 Hydralazine HCl (Apresoline) 25 mg Q6H PRN PO sBP >140 01/05/20 17:00 01/07/20 05:48 Hydrochlorothiazide (Hydrodiuril) 12.5 mg DAILY PO 01/06/20 09:00 01/07/20 10:29 DC 01/07/20 08:15 Hydrochlorothiazide (Hydrodiuril) 25 mg DAILY PO 01/08/20 09:00 Omeprazole (PriLOSEC) 20 mg BID PO 01/05/20 21:00 01/07/20 08:14 Ondansetron HCl (Zofran Odt) 4 mg Q4HP PRN PO NAUSEA OR VOMITING 01/05/20 17:00 Oxycodone HCl (Roxicodone, Oxyir) 5 mg Q4HP PRN PO PAIN 01/05/20 17:00 01/07/20 00:06 Polyethylene Glycol (Miralax) 1 pkt DAILY PO 01/06/20 09:00 01/06/20 08:10 Potassium Phos/ Sodium Phos (K-Phos Neutral) 250 mg BID PO 01/05/20 21:00 01/07/20 08:14 Prednisolone Acetate (Predforte 1% Ophth Susp) 1 drop QID OD 01/05/20 17:00 01/07/20 08:15 Rivaroxaban (Xarelto) 10 mg DAILY@1800 PO 01/05/20 18:00 01/06/20 17:20 Senna (Senokot) 2 tab QHS PO 01/05/20 21:00 01/06/20 21:10 Tolterodine Tartrate (Detrol) 4 mg BID PO 01/05/20 21:00 01/07/20 08:15 Valsartan (Diovan) 80 mg DAILY@1700 PO 01/07/20 17:00 Valsartan (Diovan) 80 mg QHS PO 01/05/20 21:00 01/07/20 10:29 DC 01/06/20 21:10 Verapamil HCl (Calan Sr) 180 mg DAILY PO 01/06/20 09:00 01/07/20 08:15 MINDY SANCHES MD January 07, 2020 14:45
[2020-01-07 16:02] VITALS: BP 148/72
[2020-01-07] MEDS: VALSARTAN 80 MG TAB (DIOVAN) PO SCH (16:03)
[2020-01-07] MEDS: RIVAROXABAN 10 MG TAB (XARELTO) PO SCH (16:55)
[2020-01-07 20:00] VITALS: BP 150/70
[2020-01-07] MEDS: IRON POLYSAC (NIFEREX) 150 MG CAP PO SCH (20:40)
[2020-01-07] MEDS: SENNA 8.6 MG TAB (SENOKOT) PO SCH (20:40)
[2020-01-08] MEDS: **hydrALAZINE HCL** 25 MG TAB PO PRN (05:48)
[2020-01-08 06:00] VITALS: BP 172/80
[2020-01-08] MEDS: MIRALAX *UNIT DOSE* 17GM PACKET PO SCH (09:00)
[2020-01-08] MEDS: REMEDY PHYTOPLEX Z-GUARD PASTE 113GM TUBE (FROM STOREROOM PRODUCT) TOP SCH ×3 (09:00→20:22)
[2020-01-08] MEDS: DOCUSATE SODIUM 100 MG CAP PO SCH ×2 (09:44→20:19)
[2020-01-08] MEDS: hydroCHLOROthiazide 25 MG TAB PO SCH (09:44)
[2020-01-08] MEDS: FUROSEMIDE 20 MG TAB PO SCH (09:44)
[2020-01-08] MEDS: TOLTERODINE (DETROL) 2 MG TAB PO SCH ×2 (09:45→20:20)
[2020-01-08] MEDS: IRON POLYSAC (NIFEREX) 150 MG CAP PO SCH ×2 (09:45→20:19)
[2020-01-08] MEDS: OMEPRAZOLE 20 MG CAP PO SCH ×2 (09:45→20:19)
[2020-01-08] MEDS: K-PHOS NEUTRAL 250MG TABLET (SOD.PHOSPHATE/POT.PHOSPHATE) PO SCH ×2 (09:45→20:19)
[2020-01-08] MEDS: VERAPAMIL 180MG EXTENDED RELEASE TABLET PO SCH (09:45)
[2020-01-08] MEDS: ACETAMINOPHEN 500 MG TAB PO SCH ×3 (09:46→20:21)
[2020-01-08] MEDS: prednisoLONE ACET 1% OPHTH SUSP 5ML OD SCH ×4 (09:53→20:21)
[2020-01-08 14:00] VITALS: BP 110/53
--- NOTE | 2020-01-08 14:27 | IPNPDOC ---
PM&R Progress Note DATE OF SERVICE: January 08, 2020 Fuse Spooler Progress Note Subjective: Patient reporting she feels well and states her blood pressures at home are very well controlled. REVIEW OF SYSTEMS: The following is a completed review of systems and has been reviewed. Review of systems otherwise unremarkable. PAIN: Patient self reports right hip pain EYES: No recent vision changes EARS, NOSE, & THROAT: No throat pain, or dysphagia, or rhinorrhea CARDIOVASCULAR: Denies chest pain or palpitations. PULMONARY: Denies shortness of breath GASTROINTESTINAL: Denies constipation/diarrhea GENITOURINARY: denies dysuria, +over active bladder MUSCULOSKELETAL: RLE weakness. NEUROLOGICAL:denies paresthesias HEMATOLOGICAL: +anemia SKIN: right hip incision PSYCHIATRIC: Unremarkable All other review of systems found to be negative. PHYSICAL EXAMINATION: VITAL SIGNS: Please see below. GENERAL: Pleasant and cooperative. No acute distress. HEENT: PERRL. Extraocular movements intact. Clear conjunctiva CARDIOVASCULAR: Regular rate and rhythm. No murmurs, rubs, or gallops LUNGS: Clear to auscultation bilaterally. No wheezes. No rhonchi ABDOMEN: Soft, nontender, nondistended. Positive bowel sounds. Normal active bowel sounds NEUROLOGICAL: Alert and oriented times three. Cranial nerves II through XII grossly intact. Sensation grossly intact EXTREMITIES: 5\5 strength bilateral upper extremities. 5\5 strength right ankle DF/PF, and EHL (limited due to surgery)5/5 strength in left lower extremity. mild RLE edema (-) Cindi's SKIN: right hip incision without induration, +serous drainage ASSESSMENT:84-year-old F with past medical history of HTN and osteoporosis who presents status post right hip fracture PLAN: 1. Rehab- PT/OT advance gait and ADl training, maintain hip precautions, strengthen/stretch/maintain ROM all 4 limbs-ambulating with RW 2. Neuro: no active issues 3. Cardiac: hx of HTN c/u Diovan (change timing to 5pm as this is when she takes it at home) and increase verapamil SR to 120 BID (patient takes 180 ER at home), prn hydralazine ordered -most recent ECHO showing chronic diastolic dysfunction- c/u lasix, increased HCTZ to help with elevated BPs, fluid restrict, daily weights -medicine consulted to assist in overall management 4. Resp: encourage incentive spirometry, monitor for infection -f/u pulmonary nodule with PCP 5. Ortho: s/p right hip shoshana-arthroplasty- ortho consulted 6. DVT ppx: xarelto and teds 7. GI ppx: prilosec 20mg BID 8. : overactive bladder c/u Detrol 9. Pain: Tylenol and oxycodone prn 10. Dispo: 01-13-20 to home Allergies Coded Allergies: No Known Allergies (Unverified , 02/13/19) Vital Signs Vital Signs Date Time Temp Pulse Resp B/P (MAP) Pulse Ox O2 Delivery O2 Flow Rate FiO2 01/08/20 09:45 144/76 01/08/20 06:00 98.1 89 16 98 Room Air Current Medications Current Medications Current Medications Medications (Trade) Dose Ordered Sig/Akiko Route PRN Reason Start Time Stop Time Status Last Admin Dose Admin Acetaminophen (Tylenol Tab) 1,000 mg TID PO 01/05/20 21:00 01/08/20 09:46 Bisacodyl (Dulcolax Suppository) 10 mg DAILYPRN PRN [place] CONSTIPATION 01/05/20 17:00 Docusate Sodium (Colace) 100 mg BID PO 01/05/20 21:00 01/08/20 09:44 Furosemide (Lasix) 20 mg DAILY PO 01/06/20 09:00 01/08/20 09:44 Hydralazine HCl (Apresoline) 25 mg Q6H PRN PO sBP >140 01/05/20 17:00 01/08/20 05:48 Hydrochlorothiazide (Hydrodiuril) 12.5 mg DAILY PO 01/06/20 09:00 01/07/20 10:29 DC 01/07/20 08:15 Hydrochlorothiazide (Hydrodiuril) 25 mg DAILY PO 01/08/20 09:00 01/08/20 09:44 Iron (Niferex) 150 mg BID PO 01/07/20 21:00 01/08/20 09:45 Omeprazole (PriLOSEC) 20 mg BID PO 01/05/20 21:00 01/08/20 09:45 Ondansetron HCl (Zofran Odt) 4 mg Q4HP PRN PO NAUSEA OR VOMITING 01/05/20 17:00 Oxycodone HCl (Roxicodone, Oxyir) 5 mg Q4HP PRN PO PAIN 01/05/20 17:00 01/07/20 00:06 Polyethylene Glycol (Miralax) 1 pkt DAILY PO 01/06/20 09:00 01/06/20 08:10 Potassium Phos/ Sodium Phos (K-Phos Neutral) 250 mg BID PO 01/05/20 21:00 01/08/20 09:45 Prednisolone Acetate (Predforte 1% Ophth Susp) 1 drop QID OD 01/05/20 17:00 01/08/20 14:07 Rivaroxaban (Xarelto) 10 mg DAILY@1800 PO 01/05/20 18:00 01/07/20 16:55 Senna (Senokot) 2 tab QHS PO 01/05/20 21:00 01/07/20 20:40 Tolterodine Tartrate (Detrol) 4 mg BID PO 01/05/20 21:00 01/08/20 09:45 Valsartan (Diovan) 80 mg DAILY@1700 PO 01/07/20 17:00 01/07/20 16:03 Valsartan (Diovan) 80 mg QHS PO 01/05/20 21:00 01/07/20 10:29 DC 01/06/20 21:10 Verapamil HCl (Calan Sr) 180 mg DAILY PO 01/06/20 09:00 01/08/20 09:54 DC 01/08/20 09:45 Verapamil HCl (Isoptin-Sr, Calan Sr) 120 mg BID PO 01/09/20 09:00 MINDY SANCHES MD January 08, 2020 14:27
[2020-01-08] MEDS: RIVAROXABAN 10 MG TAB (XARELTO) PO SCH (17:54)
[2020-01-08] MEDS: VALSARTAN 80 MG TAB (DIOVAN) PO SCH (17:55)
[2020-01-08 20:00] VITALS: BP 124/57
[2020-01-08] MEDS: SENNA 8.6 MG TAB (SENOKOT) PO SCH (20:19)
[2020-01-08] MEDS: VERAPAMIL 120 MG SR TAB PO SCH (20:20)
[2020-01-08] MEDS: oxyCODONE 5MG TAB PO PRN (20:24)
[2020-01-09 06:26] VITALS: BP 123/60
[2020-01-09 06:44] LABS: BASO # 0.1 10^3/uL (0.0-0.2); EOS # 0.2 10^3/uL (0.0-0.5); EOS % 3.3 % (0.0-3.0); HEMATOCRIT 29.6 % (36.0-47.0); HEMOGLOBIN 9.6 g/dl (12.0-15.5); LYMPH # 1.4 10^3/uL (1.5-5.0); LYMPH % 24.4 % (24.0-44.0); MEAN CORPUSCULAR HEMOGLOBIN 29.7 pg (27.0-33.0); MEAN CORPUSCULAR HGB CONC 32.4 g/dl (32.0-36.5); MEAN CORPUSCULAR VOLUME 91.6 fl (80.0-96.0); MONO # 0.5 10^3/uL (0.0-0.8); MONO % 8.5 % (0.0-5.0); NEUTROPHILS # 3.6 10^3/uL (1.5-8.5); NEUTROPHILS % 62.1 % (36.0-66.0); PLATELET COUNT, AUTOMATED 364 10^3/uL (150-450); RED BLOOD COUNT 3.23 10^6/uL (4.00-5.40); WHITE BLOOD COUNT 5.8 10^3/uL (4.0-10.0)
[2020-01-09 07:04] LABS: BLOOD UREA NITROGEN 14 MG/DL (7-18); CALCIUM LEVEL 8.5 MG/DL (8.8-10.2); CARBON DIOXIDE LEVEL 29 MEQ/L (21-32); CHLORIDE LEVEL 102 MEQ/L (98-107); CREATININE FOR GFR 0.55 MG/DL (0.55-1.30); GLOMERULAR FILTRATION RATE > 60.0 (>32); GLUCOSE, FASTING 87 MG/DL (70-100); POTASSIUM SERUM 3.6 MEQ/L (3.5-5.1); SODIUM LEVEL 138 MEQ/L (136-145)
[2020-01-09] MEDS: REMEDY PHYTOPLEX Z-GUARD PASTE 113GM TUBE (FROM STOREROOM PRODUCT) TOP SCH ×3 (09:00→21:00)
[2020-01-09] MEDS: DOCUSATE SODIUM 100 MG CAP PO SCH ×2 (09:00→21:00)
[2020-01-09] MEDS ORDERED: VERAPAMIL 120 MG SR TAB PO SCH (09:00)
[2020-01-09] MEDS: ACETAMINOPHEN 500 MG TAB PO SCH ×3 (09:00→21:00)
[2020-01-09] MEDS: MIRALAX *UNIT DOSE* 17GM PACKET PO SCH (09:00)
[2020-01-09] MEDS: IRON POLYSAC (NIFEREX) 150 MG CAP PO SCH ×2 (09:58→21:55)
[2020-01-09] MEDS: hydroCHLOROthiazide 25 MG TAB PO SCH (09:58)
[2020-01-09] MEDS: OMEPRAZOLE 20 MG CAP PO SCH ×2 (09:58→21:56)
[2020-01-09] MEDS: prednisoLONE ACET 1% OPHTH SUSP 5ML OD SCH ×4 (09:58→21:00)
[2020-01-09] MEDS: K-PHOS NEUTRAL 250MG TABLET (SOD.PHOSPHATE/POT.PHOSPHATE) PO SCH ×2 (09:59→21:57)
[2020-01-09] MEDS: TOLTERODINE (DETROL) 2 MG TAB PO SCH ×2 (09:59→21:55)
[2020-01-09] MEDS: FUROSEMIDE 20 MG TAB PO SCH (10:00)
[2020-01-09] MEDS: VERAPAMIL 120 MG SR TAB PO SCH ×2 (10:00→21:56)
[2020-01-09] MEDS: FERROUS SULFATE 325MG TAB PO SCH ×2 (12:57→21:57)
[2020-01-09 14:00] VITALS: BP 106/55
--- NOTE | 2020-01-09 16:20 | IPNPDOC ---
PM&R Progress Note DATE OF SERVICE: January 09, 2020 Dental Assistant Progress Note Subjective: Patient reporting she is happy to have room privileges and has very little pain. REVIEW OF SYSTEMS: The following is a completed review of systems and has been reviewed. Review of systems otherwise unremarkable. PAIN: Patient self reports right hip pain EYES: No recent vision changes EARS, NOSE, & THROAT: No throat pain, or dysphagia, or rhinorrhea CARDIOVASCULAR: Denies chest pain or palpitations. PULMONARY: Denies shortness of breath GASTROINTESTINAL: Denies constipation/diarrhea GENITOURINARY: denies dysuria, +over active bladder MUSCULOSKELETAL: RLE weakness. NEUROLOGICAL:denies paresthesias HEMATOLOGICAL: +anemia SKIN: right hip incision PSYCHIATRIC: Unremarkable All other review of systems found to be negative. PHYSICAL EXAMINATION: VITAL SIGNS: Please see below. GENERAL: Pleasant and cooperative. No acute distress. HEENT: PERRL. Extraocular movements intact. Clear conjunctiva CARDIOVASCULAR: Regular rate and rhythm. No murmurs, rubs, or gallops LUNGS: Clear to auscultation bilaterally. No wheezes. No rhonchi ABDOMEN: Soft, nontender, nondistended. Positive bowel sounds. Normal active bowel sounds NEUROLOGICAL: Alert and oriented times three. Cranial nerves II through XII grossly intact. Sensation grossly intact EXTREMITIES: 5\5 strength bilateral upper extremities. 5\5 strength right ankle DF/PF, and EHL (limited due to surgery)5/5 strength in left lower extremity. mild RLE edema (-) Cindi's SKIN: right hip incision without induration, +serous drainage ASSESSMENT:84-year-old F with past medical history of HTN and osteoporosis who presents status post right hip fracture PLAN: 1. Rehab- PT/OT advance gait and ADl training, maintain hip precautions, strengthen/stretch/maintain ROM all 4 limbs-ambulating with RW-room privileges 2. Neuro: no active issues 3. Cardiac: hx of HTN c/u Diovan (change timing to 5pm as this is when she takes it at home) and increased verapamil SR to 120 BID (patient takes 180 ER at home), prn hydralazine ordered-BPs improved today -most recent ECHO showing chronic diastolic dysfunction- c/u lasix, increased HCTZ to help with elevated BPs, fluid restrict, daily weights -medicine consulted to assist in overall management 4. Resp: encourage incentive spirometry, monitor for infection -f/u pulmonary nodule with PCP 5. Ortho: s/p right hip shoshana-arthroplasty- ortho consulted 6. DVT ppx: xarelto and teds 7. GI ppx: prilosec 20mg BID 8. : overactive bladder c/u Detrol 9. Pain: Tylenol and oxycodone prn 10. Dispo: 01-13-20 to home Allergies Coded Allergies: No Known Allergies (Unverified , 02/13/19) Vital Signs Vital Signs Date Time Temp Pulse Resp B/P (MAP) Pulse Ox O2 Delivery O2 Flow Rate FiO2 01/09/20 14:00 98.1 105 16 106/55 (72) 99 Room Air Laboratory Data CBC/BMP Laboratory Tests 01/09/20 06:02 Labs 24H Laboratory Tests 2 01/09/20 06:02: Immature Granulocyte % (Auto) 0.7, Neutrophils (%) (Auto) 62.1, Lymphocytes (%) (Auto) 24.4, Monocytes (%) (Auto) 8.5H, Eosinophils (%) (Auto) 3.3H, Basophils (%) (Auto) 1.0, Neutrophils # (Auto) 3.6, Lymphocytes # (Auto) 1.4L, Monocytes # (Auto) 0.5, Eosinophils # (Auto) 0.2, Basophils # (Auto) 0.1, Nucleated Red Blood Cells % (auto) 0.0, Anion Gap 7L, Glomerular Filtration Rate > 60.0, Calcium Level 8.5L Current Medications Current Medications Current Medications Medications (Trade) Dose Ordered Sig/Akiko Route PRN Reason Start Time Stop Time Status Last Admin Dose Admin Acetaminophen (Tylenol Tab) 1,000 mg TID PO 01/05/20 21:00 01/08/20 09:46 Bisacodyl (Dulcolax Suppository) 10 mg DAILYPRN PRN [place] CONSTIPATION 01/05/20 17:00 Docusate Sodium (Colace) 100 mg BID PO 01/05/20 21:00 01/08/20 20:19 Ferrous Sulfate (Ferrous Sulfate) 325 mg BID PO 01/09/20 09:00 01/09/20 12:57 Furosemide (Lasix) 20 mg DAILY PO 01/06/20 09:00 01/09/20 10:00 Hydralazine HCl (Apresoline) 25 mg Q6H PRN PO sBP >140 01/05/20 17:00 01/08/20 05:48 Hydrochlorothiazide (Hydrodiuril) 12.5 mg DAILY PO 01/06/20 09:00 01/07/20 10:29 DC 01/07/20 08:15 Hydrochlorothiazide (Hydrodiuril) 25 mg DAILY PO 01/08/20 09:00 01/09/20 09:58 Iron (Niferex) 150 mg BID PO 01/07/20 21:00 01/09/20 09:58 Omeprazole (PriLOSEC) 20 mg BID PO 01/05/20 21:00 01/09/20 09:58 Ondansetron HCl (Zofran Odt) 4 mg Q4HP PRN PO NAUSEA OR VOMITING 01/05/20 17:00 Oxycodone HCl (Roxicodone, Oxyir) 5 mg Q4HP PRN PO PAIN 01/05/20 17:00 01/08/20 20:24 Polyethylene Glycol (Miralax) 1 pkt DAILY PO 01/06/20 09:00 01/06/20 08:10 Potassium Phos/ Sodium Phos (K-Phos Neutral) 250 mg BID PO 01/05/20 21:00 01/09/20 09:59 Prednisolone Acetate (Predforte 1% Ophth Susp) 1 drop QID OD 01/05/20 17:00 01/09/20 12:57 Rivaroxaban (Xarelto) 10 mg DAILY@1800 PO 01/05/20 18:00 01/08/20 17:54 Senna (Senokot) 2 tab QHS PO 01/05/20 21:00 01/08/20 20:19 Tolterodine Tartrate (Detrol) 4 mg BID PO 01/05/20 21:00 01/09/20 09:59 Valsartan (Diovan) 80 mg DAILY@1700 PO 01/07/20 17:00 01/08/20 17:55 Valsartan (Diovan) 80 mg QHS PO 01/05/20 21:00 01/07/20 10:29 DC 01/06/20 21:10 Verapamil HCl (Calan Sr) 180 mg DAILY PO 01/06/20 09:00 01/08/20 09:54 DC 01/08/20 09:45 Verapamil HCl (Isoptin-Sr, Calan Sr) 120 mg BID PO 01/08/20 21:00 01/09/20 10:00 Verapamil HCl (Isoptin-Sr, Calan Sr) 120 mg BID PO 01/09/20 09:00 01/08/20 14:24 MINDY NAVARRO MD January 09, 2020 16:20
[2020-01-09] MEDS: RIVAROXABAN 10 MG TAB (XARELTO) PO SCH (17:43)
[2020-01-09] MEDS: VALSARTAN 80 MG TAB (DIOVAN) PO SCH (17:52)
[2020-01-09 20:00] VITALS: BP 134/58
[2020-01-09] MEDS: SENNA 8.6 MG TAB (SENOKOT) PO SCH (21:00)
[2020-01-09] MEDS: oxyCODONE 5MG TAB PO PRN (21:56)
[2020-01-10 06:00] VITALS: BP 125/75
[2020-01-10] MEDS: K-PHOS NEUTRAL 250MG TABLET (SOD.PHOSPHATE/POT.PHOSPHATE) PO SCH ×2 (08:47→21:01)
[2020-01-10] MEDS: VERAPAMIL 120 MG SR TAB PO SCH ×2 (08:48→21:01)
[2020-01-10] MEDS: prednisoLONE ACET 1% OPHTH SUSP 5ML OD SCH ×4 (08:48→21:00)
[2020-01-10] MEDS: FERROUS SULFATE 325MG TAB PO SCH ×2 (08:48→21:00)
[2020-01-10] MEDS: OMEPRAZOLE 20 MG CAP PO SCH ×2 (08:48→21:02)
[2020-01-10] MEDS: TOLTERODINE (DETROL) 2 MG TAB PO SCH ×2 (08:48→21:01)
[2020-01-10] MEDS: hydroCHLOROthiazide 25 MG TAB PO SCH (08:49)
[2020-01-10] MEDS: ACETAMINOPHEN 500 MG TAB PO SCH ×3 (08:49→21:00)
[2020-01-10] MEDS: IRON POLYSAC (NIFEREX) 150 MG CAP PO SCH ×2 (08:49→21:00)
[2020-01-10] MEDS: FUROSEMIDE 20 MG TAB PO SCH (08:49)
[2020-01-10] MEDS: DOCUSATE SODIUM 100 MG CAP PO SCH ×2 (08:50→21:00)
[2020-01-10] MEDS: REMEDY PHYTOPLEX Z-GUARD PASTE 113GM TUBE (FROM STOREROOM PRODUCT) TOP SCH ×3 (08:50→21:00)
[2020-01-10] MEDS: MIRALAX *UNIT DOSE* 17GM PACKET PO SCH (08:50)
[2020-01-10 14:00] VITALS: BP 110/58
[2020-01-10 17:04] VITALS: BP 120/60
[2020-01-10] MEDS: RIVAROXABAN 10 MG TAB (XARELTO) PO SCH (17:05)
[2020-01-10] MEDS: VALSARTAN 80 MG TAB (DIOVAN) PO SCH (17:05)
[2020-01-10 20:30] VITALS: BP 115/57
[2020-01-10] MEDS: SENNA 8.6 MG TAB (SENOKOT) PO SCH (21:00)
[2020-01-10] MEDS: oxyCODONE 5MG TAB PO PRN (21:02)
[2020-01-11 06:36] VITALS: BP 119/57
[2020-01-11] MEDS: K-PHOS NEUTRAL 250MG TABLET (SOD.PHOSPHATE/POT.PHOSPHATE) PO SCH ×2 (07:39→21:31)
[2020-01-11] MEDS: FERROUS SULFATE 325MG TAB PO SCH ×2 (07:39→21:30)
[2020-01-11] MEDS: TOLTERODINE (DETROL) 2 MG TAB PO SCH ×2 (07:39→21:31)
[2020-01-11] MEDS: VERAPAMIL 120 MG SR TAB PO SCH ×2 (07:39→21:32)
[2020-01-11] MEDS: IRON POLYSAC (NIFEREX) 150 MG CAP PO SCH ×2 (07:39→21:31)
[2020-01-11] MEDS: OMEPRAZOLE 20 MG CAP PO SCH ×2 (07:39→21:30)
[2020-01-11] MEDS: MIRALAX *UNIT DOSE* 17GM PACKET PO SCH (07:39)
[2020-01-11] MEDS: hydroCHLOROthiazide 25 MG TAB PO SCH (07:39)
[2020-01-11] MEDS: FUROSEMIDE 20 MG TAB PO SCH (07:39)
[2020-01-11] MEDS: DOCUSATE SODIUM 100 MG CAP PO SCH ×2 (07:40→21:00)
[2020-01-11] MEDS: ACETAMINOPHEN 500 MG TAB PO SCH ×3 (07:41→21:00)
[2020-01-11] MEDS: prednisoLONE ACET 1% OPHTH SUSP 5ML OD SCH ×4 (07:41→21:33)
[2020-01-11] MEDS: REMEDY PHYTOPLEX Z-GUARD PASTE 113GM TUBE (FROM STOREROOM PRODUCT) TOP SCH ×3 (07:41→21:00)
[2020-01-11 14:00] VITALS: BP 118/54
[2020-01-11] MEDS: RIVAROXABAN 10 MG TAB (XARELTO) PO SCH (17:12)
[2020-01-11] MEDS: VALSARTAN 80 MG TAB (DIOVAN) PO SCH (17:12)
[2020-01-11 20:00] VITALS: BP 123/57
[2020-01-11 20:10] VITALS: BP 117/56
[2020-01-11] MEDS: SENNA 8.6 MG TAB (SENOKOT) PO SCH (21:00)
[2020-01-11] MEDS: oxyCODONE 5MG TAB PO PRN (21:39)
[2020-01-12 06:13] LABS: BASO # 0.1 10^3/uL (0.0-0.2); BASO % 1.2 % (0.0-1.0); EOS # 0.2 10^3/uL (0.0-0.5); EOS % 4.7 % (0.0-3.0); HEMOGLOBIN 9.8 g/dl (12.0-15.5); LYMPH # 1.2 10^3/uL (1.5-5.0); LYMPH % 23.7 % (24.0-44.0); MEAN CORPUSCULAR HGB CONC 32.7 g/dl (32.0-36.5); MEAN CORPUSCULAR VOLUME 91.7 fl (80.0-96.0); MONO # 0.5 10^3/uL (0.0-0.8); MONO % 9.3 % (0.0-5.0); NEUTROPHILS # 2.9 10^3/uL (1.5-8.5); NEUTROPHILS % 60.7 % (36.0-66.0); PLATELET COUNT, AUTOMATED 395 10^3/uL (150-450); RED BLOOD COUNT 3.27 10^6/uL (4.00-5.40); WHITE BLOOD COUNT 4.9 10^3/uL (4.0-10.0)
[2020-01-12 06:19] VITALS: BP 124/58
[2020-01-12 06:45] LABS: BLOOD UREA NITROGEN 23 MG/DL (7-18); CALCIUM LEVEL 8.6 MG/DL (8.8-10.2); CARBON DIOXIDE LEVEL 33 MEQ/L (21-32); CHLORIDE LEVEL 101 MEQ/L (98-107); CREATININE FOR GFR 0.75 MG/DL (0.55-1.30); GLOMERULAR FILTRATION RATE > 60.0 (>32); GLUCOSE, FASTING 93 MG/DL (70-100); POTASSIUM SERUM 3.3 MEQ/L (3.5-5.1); SODIUM LEVEL 139 MEQ/L (136-145)
[2020-01-12 09:00] VITALS: BP 153/63
[2020-01-12] MEDS: DOCUSATE SODIUM 100 MG CAP PO SCH ×2 (09:00→21:28)
[2020-01-12] MEDS: MIRALAX *UNIT DOSE* 17GM PACKET PO SCH (09:00)
[2020-01-12] MEDS: REMEDY PHYTOPLEX Z-GUARD PASTE 113GM TUBE (FROM STOREROOM PRODUCT) TOP SCH ×3 (09:00→21:00)
[2020-01-12] MEDS: ACETAMINOPHEN 500 MG TAB PO SCH ×3 (09:00→21:00)
[2020-01-12] MEDS ORDERED: XARE10TA PO (09:29)
[2020-01-12] MEDS: VERAPAMIL 120 MG SR TAB PO SCH ×2 (09:45→21:00)
[2020-01-12] MEDS: IRON POLYSAC (NIFEREX) 150 MG CAP PO SCH ×2 (09:45→21:28)
[2020-01-12] MEDS: OMEPRAZOLE 20 MG CAP PO SCH ×2 (09:45→21:27)
[2020-01-12] MEDS: TOLTERODINE (DETROL) 2 MG TAB PO SCH ×2 (09:45→21:28)
[2020-01-12] MEDS: FUROSEMIDE 20 MG TAB PO SCH (09:45)
[2020-01-12] MEDS: FERROUS SULFATE 325MG TAB PO SCH ×2 (09:46→21:28)
[2020-01-12] MEDS: hydroCHLOROthiazide 25 MG TAB PO SCH (09:46)
[2020-01-12] MEDS: K-PHOS NEUTRAL 250MG TABLET (SOD.PHOSPHATE/POT.PHOSPHATE) PO SCH ×2 (09:46→21:28)
[2020-01-12] MEDS: prednisoLONE ACET 1% OPHTH SUSP 5ML OD SCH ×4 (09:47→21:29)
[2020-01-12] MEDS ORDERED: OMEP-221 PO (10:47)
[2020-01-12] MEDS ORDERED: VALS80TA PO (10:47)
[2020-01-12] MEDS ORDERED: VERA180T3 PO (10:47)
[2020-01-12] MEDS ORDERED: FERR325T18 PO (10:47)
[2020-01-12] MEDS ORDERED: DETR1TAB5 PO (10:47)
[2020-01-12] MEDS ORDERED: PHOS1TAB3 PO (10:47)
[2020-01-12] MEDS: POTASSIUM CHLORIDE 10 MEQ SR TABLET PO SCH ×2 (12:10→21:26)
[2020-01-12 14:00] VITALS: BP 124/60
--- NOTE | 2020-01-12 16:35 | IPNPDOC ---
PM&R Progress Note DATE OF SERVICE: January 12, 2020 Delivery Tech Progress Note Subjective: Patient reporting she feels well today and ready to go home tomorrow. REVIEW OF SYSTEMS: The following is a completed review of systems and has been reviewed. Review of systems otherwise unremarkable. PAIN: Patient self reports right hip pain EYES: No recent vision changes EARS, NOSE, & THROAT: No throat pain, or dysphagia, or rhinorrhea CARDIOVASCULAR: Denies chest pain or palpitations. PULMONARY: Denies shortness of breath GASTROINTESTINAL: Denies constipation/diarrhea GENITOURINARY: denies dysuria, +over active bladder MUSCULOSKELETAL: RLE weakness. NEUROLOGICAL:denies paresthesias HEMATOLOGICAL: +anemia SKIN: right hip incision PSYCHIATRIC: Unremarkable All other review of systems found to be negative. PHYSICAL EXAMINATION: VITAL SIGNS: Please see below. GENERAL: Pleasant and cooperative. No acute distress. HEENT: PERRL. Extraocular movements intact. Clear conjunctiva CARDIOVASCULAR: Regular rate and rhythm. No murmurs, rubs, or gallops LUNGS: Clear to auscultation bilaterally. No wheezes. No rhonchi ABDOMEN: Soft, nontender, nondistended. Positive bowel sounds. Normal active bowel sounds NEUROLOGICAL: Alert and oriented times three. Cranial nerves II through XII grossly intact. Sensation grossly intact EXTREMITIES: 5\5 strength bilateral upper extremities. 5\5 strength right ankle DF/PF, and EHL (limited due to surgery)5/5 strength in left lower extremity. mild RLE edema (improving) (-) Cindi's SKIN: right hip incision without induration, +serous drainage ASSESSMENT:84-year-old F with past medical history of HTN and osteoporosis who presents status post right hip fracture PLAN: 1. Rehab- PT/OT advance gait and ADl training, maintain hip precautions, strengthen/stretch/maintain ROM all 4 limbs-ambulating with RW-room privileges 2. Neuro: no active issues 3. Cardiac: hx of HTN c/u Diovan (change timing to 5pm as this is when she takes it at home) and increased verapamil SR to 120 BID (patient takes 180 ER at home), prn hydralazine ordered-BPs improved -most recent ECHO showing chronic diastolic dysfunction- c/u lasix, increased HCTZ to help with elevated BPs, fluid restrict, daily weights -today hypokalemia likely due to increased HCTZ, will replete and recheck tomorrow prior to d/c -medicine consulted to assist in overall management 4. Resp: encourage incentive spirometry, monitor for infection -f/u pulmonary nodule with PCP 5. Ortho: s/p right hip shoshana-arthroplasty- ortho consulted 6. DVT ppx: xarelto and teds 7. GI ppx: prilosec 20mg BID 8. : overactive bladder c/u Detrol 9. Pain: Tylenol and oxycodone prn 10. Dispo: 01-13-20 to home, progressing towards goals Allergies Coded Allergies: No Known Allergies (Unverified , 02/13/19) Vital Signs Vital Signs Date Time Temp Pulse Resp B/P (MAP) Pulse Ox O2 Delivery O2 Flow Rate FiO2 01/12/20 14:00 99.1 89 16 124/60 (81) 98 Room Air Laboratory Data CBC/BMP Laboratory Tests 01/12/20 05:58 Labs 24H Laboratory Tests 2 01/12/20 05:58: Immature Granulocyte % (Auto) 0.4, Neutrophils (%) (Auto) 60.7, Lymphocytes (%) (Auto) 23.7L, Monocytes (%) (Auto) 9.3H, Eosinophils (%) (Auto) 4.7H, Basophils (%) (Auto) 1.2H, Neutrophils # (Auto) 2.9, Lymphocytes # (Auto) 1.2L, Monocytes # (Auto) 0.5, Eosinophils # (Auto) 0.2, Basophils # (Auto) 0.1, Nucleated Red Blood Cells % (auto) 0.0, Anion Gap 5L, Glomerular Filtration Rate > 60.0, Calcium Level 8.6L Current Medications Current Medications Current Medications Medications (Trade) Dose Ordered Sig/Akiko Route PRN Reason Start Time Stop Time Status Last Admin Dose Admin Acetaminophen (Tylenol Tab) 1,000 mg TID PO 01/05/20 21:00 01/08/20 09:46 Bisacodyl (Dulcolax Suppository) 10 mg DAILYPRN PRN [place] CONSTIPATION 01/05/20 17:00 Docusate Sodium (Colace) 100 mg BID PO 01/05/20 21:00 01/08/20 20:19 Ferrous Sulfate (Ferrous Sulfate) 325 mg BID PO 01/09/20 09:00 01/12/20 09:46 Furosemide (Lasix) 20 mg DAILY PO 01/06/20 09:00 01/12/20 09:45 Hydralazine HCl (Apresoline) 25 mg Q6H PRN PO sBP >140 01/05/20 17:00 01/08/20 05:48 Hydrochlorothiazide (Hydrodiuril) 12.5 mg DAILY PO 01/06/20 09:00 01/07/20 10:29 DC 01/07/20 08:15 Hydrochlorothiazide (Hydrodiuril) 25 mg DAILY PO 01/08/20 09:00 01/12/20 09:46 Iron (Niferex) 150 mg BID PO 01/07/20 21:00 01/12/20 09:45 Omeprazole (PriLOSEC) 20 mg BID PO 01/05/20 21:00 01/12/20 09:45 Ondansetron HCl (Zofran Odt) 4 mg Q4HP PRN PO NAUSEA OR VOMITING 01/05/20 17:00 Oxycodone HCl (Roxicodone, Oxyir) 5 mg Q4HP PRN PO PAIN 01/05/20 17:00 01/11/20 21:39 Polyethylene Glycol (Miralax) 1 pkt DAILY PO 01/06/20 09:00 01/06/20 08:10 Potassium Chloride (Micro-K Extencaps) 40 meq BID PO 01/12/20 10:45 01/12/20 22:00 01/12/20 12:10 Potassium Phos/ Sodium Phos (K-Phos Neutral) 250 mg BID PO 01/05/20 21:00 01/12/20 09:46 Prednisolone Acetate (Predforte 1% Ophth Susp) 1 drop QID OD 01/05/20 17:00 01/12/20 12:10 Rivaroxaban (Xarelto) 10 mg DAILY@1800 PO 01/05/20 18:00 01/11/20 17:12 Senna (Senokot) 2 tab QHS PO 01/05/20 21:00 01/08/20 20:19 Tolterodine Tartrate (Detrol) 4 mg BID PO 01/05/20 21:00 01/12/20 09:45 Valsartan (Diovan) 80 mg DAILY@1700 PO 01/07/20 17:00 01/11/20 17:12 Valsartan (Diovan) 80 mg QHS PO 01/05/20 21:00 01/07/20 10:29 DC 01/06/20 21:10 Verapamil HCl (Calan Sr) 180 mg DAILY PO 01/06/20 09:00 01/08/20 09:54 DC 01/08/20 09:45 Verapamil HCl (Isoptin-Sr, Calan Sr) 120 mg BID PO 01/08/20 21:00 01/12/20 09:45 Verapamil HCl (Isoptin-Sr, Calan Sr) 120 mg BID PO 01/09/20 09:00 01/08/20 14:24 DC MINDY SANCHES MD January 12, 2020 16:35
[2020-01-12] MEDS: RIVAROXABAN 10 MG TAB (XARELTO) PO SCH (16:53)
[2020-01-12] MEDS: VALSARTAN 80 MG TAB (DIOVAN) PO SCH (16:53)
[2020-01-12 19:56] VITALS: BP 100/56
[2020-01-12] MEDS: oxyCODONE 5MG TAB PO PRN (21:27)
[2020-01-12] MEDS: SENNA 8.6 MG TAB (SENOKOT) PO SCH (21:27)
[2020-01-13 06:01] VITALS: BP 131/65
[2020-01-13 07:21] LABS: BLOOD UREA NITROGEN 21 MG/DL (7-18); CALCIUM LEVEL 8.8 MG/DL (8.8-10.2); CARBON DIOXIDE LEVEL 32 MEQ/L (21-32); CHLORIDE LEVEL 102 MEQ/L (98-107); GLOMERULAR FILTRATION RATE > 60.0 (>32); GLUCOSE, FASTING 93 MG/DL (70-100); POTASSIUM SERUM 3.7 MEQ/L (3.5-5.1); SODIUM LEVEL 138 MEQ/L (136-145)
[2020-01-13] MEDS: MIRALAX *UNIT DOSE* 17GM PACKET PO SCH (09:00)
[2020-01-13] MEDS: REMEDY PHYTOPLEX Z-GUARD PASTE 113GM TUBE (FROM STOREROOM PRODUCT) TOP SCH (09:00)
[2020-01-13] MEDS: ACETAMINOPHEN 500 MG TAB PO SCH ×2 (09:00→09:05)
[2020-01-13] MEDS: IRON POLYSAC (NIFEREX) 150 MG CAP PO SCH (09:05)
[2020-01-13] MEDS: FERROUS SULFATE 325MG TAB PO SCH (09:05)
[2020-01-13] MEDS: OMEPRAZOLE 20 MG CAP PO SCH (09:05)
[2020-01-13] MEDS: DOCUSATE SODIUM 100 MG CAP PO SCH (09:05)
[2020-01-13] MEDS: K-PHOS NEUTRAL 250MG TABLET (SOD.PHOSPHATE/POT.PHOSPHATE) PO SCH (09:05)
[2020-01-13] MEDS: TOLTERODINE (DETROL) 2 MG TAB PO SCH (09:06)
[2020-01-13] MEDS: hydroCHLOROthiazide 25 MG TAB PO SCH (09:06)
[2020-01-13 09:07] VITALS: BP 130/68
[2020-01-13] MEDS: FUROSEMIDE 20 MG TAB PO SCH (09:07)
[2020-01-13] MEDS: VERAPAMIL 120 MG SR TAB PO SCH (09:07)
[2020-01-13] MEDS: prednisoLONE ACET 1% OPHTH SUSP 5ML OD SCH ×2 (09:07→13:00)
[2020-01-13 14:00] VITALS: BP 118/58
== END 2020-01-13 15:05 | disposition home or self-care (01) | DRG 561 ==
LOC: M PM&R 16:30
PROVIDERS: ADMIT Physical Medicine & Rehabilitation; ATTEND Physical Medicine & Rehabilitation
DX: S72.001D Fracture of unspecified part of neck of right femur, subsequent encounter for closed fracture with routine healing (principal); I10 Essential (primary) hypertension; K21.9 Gastro-esophageal reflux disease without esophagitis; N32.81 Overactive bladder; M81.0 Age-related osteoporosis without current pathological fracture; D64.9 Anemia, unspecified; M62.81 Muscle weakness (generalized); R26.89 Other abnormalities of gait and mobility; Z96.641 Presence of right artificial hip joint; Z79.899 Other long term (current) drug therapy; R26.2 Difficulty in walking, not elsewhere classified; W18.30XD Fall on same level, unspecified, subsequent encounter; Y92.009 Unspecified place in unspecified non-institutional (private) residence as the place of occurrence of the external cause

== ENCOUNTER → 2020-01-23 | Outpatient (REF) | payer MEDICARE, OTHER ==
[~2020-01-23] MED LIST changes: +FERR325T18 PO; +PHOS1TAB3 PO
[2020-01-23 15:50] LABS: BLOOD UREA NITROGEN 18 MG/DL (7-18); CALCIUM LEVEL 8.8 MG/DL (8.8-10.2); CARBON DIOXIDE LEVEL 30 MEQ/L (21-32); CHLORIDE LEVEL 103 MEQ/L (98-107); CREATININE FOR GFR 0.64 MG/DL (0.55-1.30); GLOMERULAR FILTRATION RATE > 60.0 (>32); GLUCOSE, FASTING 81 MG/DL (70-100); POTASSIUM SERUM 3.8 MEQ/L (3.5-5.1); SODIUM LEVEL 139 MEQ/L (136-145)
== END ==
LOC: M PLALAB 12:02
PROVIDERS: ATTEND Family Medicine
DX: M80.00XA Age-related osteoporosis with current pathological fracture, unspecified site, initial encounter for fracture (principal)
CPT/HCPCS: 36415; 80048; 82306; 84100; 99495; G0463

== ENCOUNTER → 2020-03-03 | Outpatient (REF) | payer MEDICARE, OTHER ==
[2020-03-03 17:41] LABS: HEMATOCRIT 38.4 % (36.0-47.0); HEMOGLOBIN 12.1 g/dl (12.0-15.5); MEAN CORPUSCULAR HEMOGLOBIN 28.9 pg (27.0-33.0); MEAN CORPUSCULAR HGB CONC 31.5 g/dl (32.0-36.5); MEAN CORPUSCULAR VOLUME 91.9 fl (80.0-96.0); PLATELET COUNT, AUTOMATED 231 10^3/uL (150-450); RED BLOOD COUNT 4.18 10^6/uL (4.00-5.40)
[2020-03-03 17:52] LABS: BLOOD UREA NITROGEN 21 MG/DL (7-18); CARBON DIOXIDE LEVEL 31 MEQ/L (21-32); CHLORIDE LEVEL 103 MEQ/L (98-107); FERRITIN 101 NG/ML (8-252); GLOMERULAR FILTRATION RATE > 60.0 (>32); GLUCOSE, FASTING 93 MG/DL (70-100); IRON (FE) 71 UG/DL (50-170); PERCENT SATURATION 21.3 % (13.2-45.0); POTASSIUM SERUM 3.9 MEQ/L (3.5-5.1); SODIUM LEVEL 137 MEQ/L (136-145); TOTAL IRON BINDING CAPACITY 334 UG/DL (250-450)
[2020-03-03 17:56] LABS: TOTAL 25(OH) VITAMIN D 35.7 NG/ML (30.0-100.0)
== END ==
LOC: M SFHCPLAZ 14:47
PROVIDERS: ATTEND Family Medicine
DX: D50.9 Iron deficiency anemia, unspecified (principal); M85.80 Other specified disorders of bone density and structure, unspecified site; E55.9 Vitamin D deficiency, unspecified
CPT/HCPCS: 36415; 80048; 82306; 82728; 83550; 85027; G0463

== ENCOUNTER → 2020-12-07 | Outpatient (CLI) | payer MEDICARE, OTHER ==
--- NOTE | 2020-12-08 02:00 | REP ---
INDICATION: PAIN. COMPARISON: None. TECHNIQUE: AP, lateral, coned-down views of the lumbosacral spine FINDINGS: Age-related osteopenia and advanced multilevel degenerative changes are appreciated. Frontal radiograph demonstrates chronic levoconvex scoliosis. Lateral views best demonstrate endplate sclerosis, disc space narrowing, bridging osteophytosis and facet hypertrophy. No acute fracture/compression injury or subluxation. IMPRESSION: Osteopenia and advanced multilevel degenerative spondylosis. <Electronically signed by Kenton Foote > 12/08/20 [id number]
--- NOTE | 2020-12-08 02:14 | REP ---
INDICATION: PAIN Status post arthroplasty. COMPARISON: 12/31/2019 TECHNIQUE: Partial AP view of the pelvis with neutral and frog-lateral views of the right hip FINDINGS: No obvious acute fracture or dislocation. Right hip replacement is identified in relatively normal satisfactory position. Soft tissue calcifications adjacent to the greater trochanter appear relatively new as compared with 12/31/2019. Age-related osteopenia and arthritic changes along the residual proximal femur. IMPRESSION: Stable appearance of the right hip replacement. New soft tissue calcifications adjacent to the greater trochanter consistent with progressive degenerative change and postsurgical myositis. <Electronically signed by Kenton Foote > 12/08/20 [id number]
== END ==
LOC: M SOG 14:17
PROVIDERS: ATTEND Orthopaedic Surgery Sports Medicine
DX: Z47.89 Encounter for other orthopedic aftercare (principal)

== ENCOUNTER → 2020-12-17 | Outpatient (REF) | payer MEDICARE, OTHER ==
[2020-12-17 13:48] LABS: HEMATOCRIT 38.8 % (36.0-47.0); HEMOGLOBIN 12.1 g/dl (12.0-15.5); MEAN CORPUSCULAR HEMOGLOBIN 30.3 pg (27.0-33.0); MEAN CORPUSCULAR HGB CONC 31.2 g/dl (32.0-36.5); PLATELET COUNT, AUTOMATED 189 10^3/uL (150-450); WHITE BLOOD COUNT 5.1 10^3/uL (4.0-10.0)
[2020-12-17 14:16] LABS: BLOOD UREA NITROGEN 26 MG/DL (7-18); CALCIUM LEVEL 9.5 MG/DL (8.8-10.2); CARBON DIOXIDE LEVEL 30 MEQ/L (21-32); CHLORIDE LEVEL 105 MEQ/L (98-107); CREATININE FOR GFR 0.84 MG/DL (0.55-1.30); FERRITIN 145 NG/ML (8-252); GLOMERULAR FILTRATION RATE > 60.0 (>32); GLUCOSE, FASTING 93 MG/DL (70-100); IRON (FE) 55 UG/DL (50-170); PERCENT SATURATION 15.9 % (13.2-45.0); POTASSIUM SERUM 4.9 MEQ/L (3.5-5.1); SODIUM LEVEL 138 MEQ/L (136-145); TOTAL IRON BINDING CAPACITY 345 UG/DL (250-450)
[2020-12-18 08:09] LABS: CREATININE, URINE 97.7 mg/dL (20.0-300.0)
== END ==
LOC: M SFHCPLAZ 10:40
PROVIDERS: ATTEND Family Medicine
DX: Z01.818 Encounter for other preprocedural examination (principal); D50.9 Iron deficiency anemia, unspecified; I10 Essential (primary) hypertension; Z51.81 Encounter for therapeutic drug level monitoring
CPT/HCPCS: 36415; 80048; 80307; 82728; 83550; 85027; 93005; G0463

== ENCOUNTER → 2021-01-01 | Outpatient (CLI) | payer MEDICARE, OTHER | LOC: M LABSMTC 11:18 | PROVIDERS: ATTEND Anesthesiology | DX: Z01.812 Encounter for preprocedural laboratory examination (principal); Z20.822 Contact with and (suspected) exposure to COVID-19 ==

== ENCOUNTER 2021-01-06 11:48 | Day surgery (SDC) | payer MEDICARE, OTHER ==
[~2021-01-06] VITALS: Ht 170.2 cm; Wt 62.1 kg
[~2021-01-06 11:48] MED LIST changes: +BOTOX THERAPEUTIC 100 UNIT VIAL (J0585 PER 1 UNIT) INJ ONE; +FLUTISP; +IBUP200C25 PO; +LR 1,000 ML IV SCH
[2021-01-06] MEDS ORDERED: BOTOX THERAPEUTIC 100 UNIT VIAL (J0585 PER 1 UNIT) As Ordered ONE (16:18)
[2021-01-06] MEDS ORDERED: ceFAZolin SOD 1 GM in D5W MINI-BAG PLUS 50 ML IV ONE (16:21)
[2021-01-06] MEDS ORDERED: ceFAZolin 1GM VIAL (J0690 PER 500MG) As Ordered ONE (16:21)
[2021-01-06] MEDS ORDERED: LIDOCAINE 2% 100MG/5ML SDV (FOR ANES.) As Ordered ONE (16:25)
[2021-01-06] MEDS ORDERED: ONDANSETRON 4MG/2ML VIAL As Ordered ONE (16:25)
[2021-01-06] MEDS ORDERED: fentaNYL 100 MCG/2 ML INJECTION (J3010) As Ordered ONE (16:25)
[2021-01-06] MEDS ORDERED: dexameTHASONE 4 MG/ML 1ML VIAL (J1100 PER 1MG) As Ordered ONE (16:25)
[2021-01-06] MEDS ORDERED: propofoL 200 MG/20 ML VIAL As Ordered ONE (16:25)
[2021-01-06] MEDS ORDERED: ACETAMINOPHEN 1000MG 100ML IV BTL (OFIRMEV) (J0131 PER 10MG) As Ordered ONE (16:28)
[2021-01-06] MEDS ORDERED: PHENYLephrine 500MCG 5ML (100MCG/ML) SYRINGE As Ordered ONE (17:11)
[2021-01-06] MEDS ORDERED: ePHEDrine SULFATE 25 MG/5 ML(5MG/ML) SYRINGE As Ordered ONE (17:11)
[2021-01-06] MEDS ORDERED: ONDANSETRON 4MG/2ML VIAL IV PRN (17:35)
[2021-01-06] MEDS ORDERED: PERCOCET 5MG/325MG TAB PO PRN (17:35)
[2021-01-06] MEDS ORDERED: METOCLOPRAMIDE INJ 10MG/2ML VIAL (J2765 PER 1) IV PRN (17:35)
[2021-01-06] MEDS ORDERED: LR 1,000 ML IV SCH ×2 (17:35→17:40)
[2021-01-06] MEDS ORDERED: IBUPROFEN 600MG TAB PO PRN (17:40)
[2021-01-06 18:19] VITALS: BP 177/74
--- NOTE | 2021-01-07 08:37 | RO ---
OPERATIVE NOTE DATE OF OPERATION: 01/06/2021 PREOPERATIVE DIAGNOSIS/INDICATIONS FOR SURGERY: Incontinence, previous successful Botox treatment. POSTOPERATIVE DIAGNOSIS: Incontinence, previous successful Botox treatment. PROCEDURE: Cystourethroscopy with Botox chemodenervation of the bladder. SURGEON: Sandra Darby MD ATOMIC PHYSICS PROFESSOR: None. ANESTHESIA: LMA. SPECIMEN: None. DESCRIPTION OF PROCEDURE/FINDINGS: Yara was brought to the operating room where sufficient LMA anesthesia was induced. She was prepped and draped and positioned in the usual sterile fashion. The patient has recently injured tailbone and was quite tender. We carefully tried to position her in a way to minimize any further difficulty. After this prep as typical, the 30-degree cystoscope was placed and circumferential evaluation of the bladder was undertaken. There was a little bit of fluffy exudate consistent with occasional dehydration or sometimes seen in people who have history of stones but no stones seen and no lesions seen. She does have some scarring of the bladder wall consistent with overfilling in the past but again there were no significant findings. We had 100 units of Botox A. We used this mixed up into 10 mL, 0.5 mL in each location, spacing it in multiple locations through the bladder, of course avoiding the trigone, not placing it near the ureters and we had 2 mL of saline chaser to make sure that we got all of the active medicine out of the needle. Following this the procedure was completed. There was no bleeding so EBL was zero. Fluid replacement was Crystalloid. No complications. CONDITION/DISPOSITION: Yara tolerated the procedure well and was recovering in the recovery room in good condition.
== END 2021-01-06 18:04 | disposition home or self-care (01) ==
LOC: M SDC 11:48
PROVIDERS: ATTEND Obstetrics & Gynecology
DX: R32 Unspecified urinary incontinence (principal); N32.81 Overactive bladder; I10 Essential (primary) hypertension; K44.9 Diaphragmatic hernia without obstruction or gangrene; K21.9 Gastro-esophageal reflux disease without esophagitis; M19.041 Primary osteoarthritis, right hand; M85.80 Other specified disorders of bone density and structure, unspecified site; J45.909 Unspecified asthma, uncomplicated; Z79.899 Other long term (current) drug therapy
CPT/HCPCS: 52287; J0131; J0585; J0690; J1100; J2370; J2405; J3010

== ENCOUNTER → 2021-04-14 | Outpatient (CLI) | payer MEDICARE, OTHER ==
[~2021-04-14] MED LIST changes: -BOTOX THERAPEUTIC 100 UNIT VIAL (J0585 PER 1 UNIT) INJ ONE; -LR 1,000 ML IV SCH
--- NOTE | 2021-04-14 14:04 | REPMRS ---
Patient History The patient states she had a clinical breast exam in 01/2021. Patient is postmenopausal. No known family history of cancer. Took unspecified hormones for 10 years. Patient states no breast complaints today. Patient has signed MRS History Sheet. Digital Woman Screen Mammo: April 14, 2021 - Exam #: [id number] Bilateral CC and MLO view(s) were taken. Technologist: Tete Plunkett, Technologist Prior study comparison: October 03, 2019, bilateral digital woman screen mammo performed at [facility]. September 05, 2018, bilateral digital mammo screening bilat, performed at [facility]. FINDINGS: The breast tissue is heterogeneously dense. This may lower the sensitivity of mammography. Screening. Digital screening (2D) mammography was performed bilaterally in the CC and MLO projections. Todays exam was compared to the prior exam/exams. By history, the patient has no complaints of a palpable breast abnormality or other significant breast complaints. The breasts are unchanged in size and shape.Once again, dense heterogenous fibroglandular elements are seen bilaterally in a stable appearing pattern but to such a degree that the sensitivity of the mammogram in detecting cancer is decreased. There are no michelle-soft tissue densities or spiculated masses. There is no internal architectural distortion. Once again, stable benign appearing calcifications are seen.There are no suspicious michelle-calcific clusters. Skin thickening or nipple retraction is not present. IMPRESSION: BI-RADS Category 2- Benign Findings. There is no evidence of malignant alteration of the breasts. Followup examination recommended in one year. The Volpara volumetric breast density category is C, the breasts are heterogenously dense which may obscure small masses. This mammogram was read with the assistance of [facility] [employer],an FDA approved computer aided detection system for mammography. The lifetime Tyrer-Cuzick score is .8 % Due to the density of the breasts or Tyrer Cuzick score of 20% or greater, MRI/whole breast screening ultrasound is warranted. Negative x-ray reports should not delay surgical consultation if a dominant or clinically suspicious mass is present. Not all breast cancers can be identified by mammography. Therefore, we recommend that you continue to perform regular breast self-examination and physical examination and then promptly contact your physician of any concerns or changes. Adenosis and dense breasts may obscure an underlying neoplasm. Assessment: BI-RADS/ACR category 2 mammogram. Benign Findings. Recommendation Routine screening mammogram in 1 year. Electronically Signed By: Kirt Bardales DO 04/14/21 [id number]
== END ==
LOC: M WHC 12:47
PROVIDERS: ATTEND Family Medicine
DX: Z12.31 Encounter for screening mammogram for malignant neoplasm of breast (principal)

== ENCOUNTER → 2021-08-10 | Outpatient (CLI) | payer MEDICARE, OTHER ==
[~2021-08-10] MED LIST changes: -IBUP200T45 PO; +IBUP200T46 PO; -VERA180T3 PO; +VERA180T42 PO
[2021-08-10 13:27] LABS: HEMATOCRIT 36.4 % (36.0-47.0); HEMOGLOBIN 11.9 g/dl (12.0-15.5); MEAN CORPUSCULAR HEMOGLOBIN 30.7 pg (27.0-33.0); MEAN CORPUSCULAR HGB CONC 32.7 g/dl (32.0-36.5); MEAN CORPUSCULAR VOLUME 94.1 fl (80.0-96.0); PLATELET COUNT, AUTOMATED 218 10^3/uL (150-450); RED BLOOD COUNT 3.87 10^6/uL (4.00-5.40); WHITE BLOOD COUNT 4.9 10^3/uL (4.0-10.0)
[2021-08-10 14:11] LABS: BLOOD UREA NITROGEN 26 MG/DL (7-18); CALCIUM LEVEL 9.3 MG/DL (8.8-10.2); CARBON DIOXIDE LEVEL 31 MEQ/L (21-32); CHLORIDE LEVEL 105 MEQ/L (98-107); CHOLESTEROL LEVEL 174 MG/DL (<200); CHOLESTEROL RISK RATIO 2.521 (<5); CREATININE FOR GFR 0.79 MG/DL (0.55-1.30); FERRITIN 106 NG/ML (8-252); GLOMERULAR FILTRATION RATE > 60.0 (>32); GLUCOSE, FASTING 84 MG/DL (70-100); HDL CHOLESTEROL 69 MG/DL (>40); LDL CHOLESTEROL 92 MG/DL (<100); NON-HDL-C 105 MG/DL; SODIUM LEVEL 141 MEQ/L (136-145); TRIGLYCERIDES LEVEL 63 MG/DL (<150)
== END ==
LOC: M PLALAB 10:05
PROVIDERS: ATTEND Family Medicine
DX: I10 Essential (primary) hypertension (principal); D50.9 Iron deficiency anemia, unspecified

== ENCOUNTER → 2021-11-26 | Outpatient (CLI) | payer MEDICARE, OTHER ==
[~2021-11-26] MED LIST changes: -OMEP-221 PO; +OMEP40CA5 PO
== END ==
LOC: M LABSMTC 09:25
PROVIDERS: ATTEND Anesthesiology
DX: Z01.812 Encounter for preprocedural laboratory examination (principal); Z20.822 Contact with and (suspected) exposure to COVID-19

== ENCOUNTER → 2021-12-23 | Outpatient (CLI) | payer MEDICARE, OTHER | LOC: M SOG 08:13 | PROVIDERS: ATTEND Physician Assistant | DX: M25.531 Pain in right wrist (principal) ==

== ENCOUNTER → 2022-01-24 | Outpatient (CLI) | payer MEDICARE, OTHER ==
[2022-01-24 14:51] LABS: BLOOD UREA NITROGEN 24 MG/DL (7-18); CALCIUM LEVEL 8.9 MG/DL (8.8-10.2); CARBON DIOXIDE LEVEL 28 MEQ/L (21-32); CHLORIDE LEVEL 108 MEQ/L (98-107); CREATININE FOR GFR 0.92 MG/DL (0.55-1.30); GLOMERULAR FILTRATION RATE > 60.0 (>32); GLUCOSE, FASTING 88 MG/DL (70-100); SODIUM LEVEL 139 MEQ/L (136-145)
== END ==
LOC: M PLALAB 09:32
PROVIDERS: ATTEND Family Medicine
DX: I10 Essential (primary) hypertension (principal)

== ENCOUNTER → 2022-05-04 | Outpatient (CLI) | payer MEDICARE, OTHER | LOC: M WHC 12:40 | PROVIDERS: ATTEND Obstetrics & Gynecology | DX: Z12.31 Encounter for screening mammogram for malignant neoplasm of breast (principal) ==

== ENCOUNTER → 2022-05-15 | Outpatient (CLI) | payer MEDICARE, OTHER ==
[~2022-05-15] MED LIST changes: +VERA180C3 PO
[2022-05-15 15:51] LABS: HEMATOCRIT 38.5 % (36.0-47.0); HEMOGLOBIN 12.4 g/dl (12.0-15.5); MEAN CORPUSCULAR HEMOGLOBIN 30.3 pg (27.0-33.0); MEAN CORPUSCULAR HGB CONC 32.2 g/dl (32.0-36.5); MEAN CORPUSCULAR VOLUME 94.1 fl (80.0-96.0); PLATELET COUNT, AUTOMATED 138 10^3/uL (150-450); RED BLOOD COUNT 4.09 10^6/uL (4.00-5.40); WHITE BLOOD COUNT 6.6 10^3/uL (4.0-10.0)
[2022-05-15 16:02] LABS: INR 0.93; PROTHROMBIN TIME 12.9 SECONDS (12.7-14.5)
[2022-05-15 16:03] LABS: PARTIAL THROMBOPLASTIN TIME 27.3 SECONDS (25.9-37.0)
[2022-05-15 16:53] LABS: CALCIUM LEVEL 9.2 MG/DL (8.8-10.2); CREATININE FOR GFR 0.96 MG/DL (0.55-1.30); GLOMERULAR FILTRATION RATE 58.9 (>32); POTASSIUM SERUM 3.7 MEQ/L (3.5-5.1)
== END ==
LOC: M PLAIMG 11:19
PROVIDERS: ATTEND Nurse Practitioner Women's Health
DX: Z01.818 Encounter for other preprocedural examination (principal); N39.41 Urge incontinence; Z79.01 Long term (current) use of anticoagulants

== ENCOUNTER → 2022-05-16 | Outpatient (REF) | payer MEDICARE, OTHER ==
[2022-05-16 15:40] LABS: APPEARANCE, URINE MANUAL CLOUDY (CLEAR); COLOR, URINE MANUAL YELLOW (YELLOW)
[2022-05-16 15:41] LABS: BILIRUBIN, URINE MANUAL NEGATIVE (NEGATIVE); BLOOD URINE MANUAL NEGATIVE (NEGATIVE); GLUCOSE, URINE (UA) MANUAL NEGATIVE (NEGATIVE); KETONE, URINE MANUAL NEGATIVE (NEGATIVE); LEUKOCYTE ESTERASE, URINE MAN POSITIVE (NEGATIVE); NITRITE, URINE MANUAL NEGATIVE (NEGATIVE); PROTEIN, URINE MANUAL NEGATIVE (NEGATIVE); SPECIFIC GRAVITY,URINE MANUAL 1.015 (1.002-1.035); UROBILINOGEN, URINE MANUAL NORMAL (NORMAL)
[2022-05-16 16:11] LABS: BACTERIA, URINE LARGE AMOUNT; RBC, URINE 0-1 /hpf (0-3); SQUAMOUS EPITHELIAL CELL URINE SMALL AMOUNT /hpf (SMALL AMT); TRANSITIONAL EPI CELLS, URINE SMALL AMOUNT /hpf; WBC, URINE TNTC /hpf (0-3)
[2022-05-16 16:12] LABS: HYALINE CAST, URINE NONE SEEN /lpf (0-1)
== END ==
LOC: M SMT 15:16
PROVIDERS: ATTEND Nurse Practitioner Women's Health
DX: Z01.818 Encounter for other preprocedural examination (principal); N39.41 Urge incontinence

== ENCOUNTER → 2022-05-24 | Outpatient (CLI) | payer MEDICARE, OTHER | LOC: M LABSMTC 09:45 | PROVIDERS: ATTEND Anesthesiology | DX: Z01.818 Encounter for other preprocedural examination (principal); Z11.52 Encounter for screening for COVID-19 ==

== ENCOUNTER 2022-05-29 06:01 | Day surgery (SDC) | payer MEDICARE, OTHER ==
[~2022-05-29] VITALS: Ht 170.2 cm; Wt 68.0 kg
[~2022-05-29 06:01] MED LIST changes: +ceFAZolin SOD 2 GM in IV 1 EA IV ONE
[2022-05-29] MEDS ORDERED: LR 1,000 ML IV SCH (06:35)
[2022-05-29] MEDS ORDERED: LIDOCAINE 2% 5ML JELLY UROJET As Ordered ONE (07:11)
[2022-05-29] MEDS ORDERED: LIDOCAINE 2% MDV 20ML VIAL As Ordered ONE (07:11)
[2022-05-29] MEDS ORDERED: BOTOX THERAPEUTIC 100 UNIT VIAL (J0585 PER 1 UNIT) As Ordered ONE (07:12)
[2022-05-29] MEDS ORDERED: LIDOCAINE 2% 100MG/5ML SDV (FOR ANES.) As Ordered ONE (07:14)
[2022-05-29] MEDS ORDERED: propofoL 200 MG/20 ML VIAL As Ordered ONE (07:14)
[2022-05-29] MEDS ORDERED: MIDAZOLAM INJ 2MG/2ML VIAL (J2250 PER 1MG) As Ordered ONE (07:15)
[2022-05-29] MEDS ORDERED: fentaNYL 100 MCG/2 ML INJECTION As Ordered ONE (07:15)
[2022-05-29 09:15] VITALS: BP 171/85
== END 2022-05-29 09:23 | disposition home or self-care (01) ==
LOC: M SDC 06:01
PROVIDERS: ATTEND Specialist
DX: N32.81 Overactive bladder (principal); N39.41 Urge incontinence; N30.80 Other cystitis without hematuria; R35.0 Frequency of micturition; R35.1 Nocturia; I10 Essential (primary) hypertension; J45.20 Mild intermittent asthma, uncomplicated; Z87.440 Personal history of urinary (tract) infections; I87.2 Venous insufficiency (chronic) (peripheral); R91.8 Other nonspecific abnormal finding of lung field; H04.129 Dry eye syndrome of unspecified lacrimal gland; M85.80 Other specified disorders of bone density and structure, unspecified site; M79.7 Fibromyalgia; H81.10 Benign paroxysmal vertigo, unspecified ear; M41.9 Scoliosis, unspecified; Z79.899 Other long term (current) drug therapy
CPT/HCPCS: 52204; 52260; 52287; 88305; J0585; J0690; J2250; J3010

== ENCOUNTER 2022-08-23 11:45 | Outpatient (RCR) | payer MEDICARE, OTHER ==
[~2022-08-23 11:45] MED LIST changes: -ceFAZolin SOD 2 GM in IV 1 EA IV ONE
== END 2022-08-26 ==
LOC: M PT 11:45
PROVIDERS: ATTEND Physician Assistant
DX: M54.50 Low back pain, unspecified (principal)

== ENCOUNTER 2022-09-22 15:45 | Outpatient (RCR) | payer MEDICARE, OTHER | END 2022-09-26 | LOC: M PT 15:45 | PROVIDERS: ATTEND Physician Assistant | DX: M54.50 Low back pain, unspecified (principal) ==

== ENCOUNTER → 2022-10-24 | Outpatient (RCR) | payer MEDICARE, OTHER | LOC: M PT 12:41 | PROVIDERS: ATTEND Physician Assistant | DX: M54.50 Low back pain, unspecified (principal) ==

== ENCOUNTER → 2022-11-16 | Outpatient (CLI) | payer MEDICARE, OTHER | LOC: M SOG 11:23 | PROVIDERS: ATTEND Physician Assistant | DX: M79.641 Pain in right hand (principal) ==

== ENCOUNTER 2022-11-22 14:52 | Outpatient (RCR) | payer MEDICARE, OTHER | END 2022-11-24 | LOC: M PT 14:52 | PROVIDERS: ATTEND Physician Assistant | DX: M54.50 Low back pain, unspecified (principal) ==

== ENCOUNTER 2022-11-29 12:43 | Outpatient (RCR) | payer MEDICARE, OTHER ==
[~2022-11-29 12:43] MED LIST changes: +FLUT50SP17; -FLUTISP
== END 2022-12-24 ==
LOC: M PT 12:43
PROVIDERS: ATTEND Physician Assistant
DX: M54.50 Low back pain, unspecified (principal)

== ENCOUNTER → 2023-02-20 | Outpatient (CLI) | payer MEDICARE, OTHER ==
[2023-02-20 14:09] LABS: ALBUMIN 3.8 G/DL (3.2-5.2); ALKALINE PHOSPHATASE 88 U/L (46-116); ALT/SGPT 15 U/L (7.0-40); AST/SGOT 12 U/L (<34); BILIRUBIN,TOTAL 0.4 MG/DL (0.3-1.2); BLOOD UREA NITROGEN 23 MG/DL (9-23); CALCIUM LEVEL 10.1 MG/DL (8.3-10.6); CARBON DIOXIDE LEVEL 26 MMOL/L (20-31); CHLORIDE LEVEL 105 MMOL/L (98-107); CHOLESTEROL LEVEL 169 MG/DL (<200); CHOLESTEROL RISK RATIO 2.58 (<5); CREATININE FOR GFR 0.84 MG/DL (0.55-1.30); FERRITIN 56.8 NG/ML (7.3-270.7); FREE T4 1.29 NG/DL (0.89-1.76); GLOMERULAR FILTRATION RATE > 60.0 (>32); GLUCOSE, FASTING 92 MG/DL (74-106); HDL CHOLESTEROL 65.5 MG/DL (>40); LDL CHOLESTEROL 84.9 MG/DL (<100); NON-HDL-C 103.5 MG/DL; SODIUM LEVEL 135 MMOL/L (136-145); THYROID STIMULATING HORMONE 1.277 uIU/ML (0.55-4.78); TOTAL 25(OH) VITAMIN D 32.7 NG/ML (20.0-100.0); TRIGLYCERIDES LEVEL 93 MG/DL (<150); VITAMIN B12 LEVEL 459 PG/ML (211-911)
[2023-02-20 14:40] LABS: BASO # 0.1 10^3/uL (0.0-0.2); EOS # 0.2 10^3/uL (0.0-0.5); EOS % 2.9 % (0.0-3.0); HEMATOCRIT 39.7 % (36.0-47.0); HEMOGLOBIN 13.2 g/dl (12.0-15.5); LYMPH # 1.6 10^3/uL (1.5-5.0); LYMPH % 23.6 % (24.0-44.0); MEAN CORPUSCULAR HEMOGLOBIN 30.7 pg (27.0-33.0); MEAN CORPUSCULAR HGB CONC 33.2 g/dl (32.0-36.5); MEAN CORPUSCULAR VOLUME 92.3 fl (80.0-96.0); MONO # 0.6 10^3/uL (0.0-0.8); MONO % 8.5 % (2.0-8.0); NEUTROPHILS # 4.3 10^3/uL (1.5-8.5); NEUTROPHILS % 63.3 % (36.0-66.0); PLATELET COUNT, AUTOMATED 217 10^3/uL (150-450); WHITE BLOOD COUNT 6.8 10^3/uL (4.0-10.0)
[2023-02-20 14:48] LABS: HEMOGLOBIN A1c 5.5 % (4.0-6.0)
== END ==
LOC: M PLALAB 11:19
PROVIDERS: ATTEND Physician Assistant
DX: Z00.00 Encounter for general adult medical examination without abnormal findings (principal); K21.9 Gastro-esophageal reflux disease without esophagitis; I10 Essential (primary) hypertension; N32.81 Overactive bladder; D50.9 Iron deficiency anemia, unspecified

== ENCOUNTER → 2023-04-26 | Outpatient (CLI) | payer MEDICARE, OTHER | LOC: M PAIN 13:00 | PROVIDERS: ATTEND Nurse Practitioner Family | DX: M79.10 Myalgia, unspecified site (principal); M41.9 Scoliosis, unspecified; G89.29 Other chronic pain; I10 Essential (primary) hypertension; Z87.891 Personal history of nicotine dependence; Z91.018 Allergy to other foods; Z79.899 Other long term (current) drug therapy ==

== ENCOUNTER → 2023-05-01 | Outpatient (CLI) | payer MEDICARE, OTHER | LOC: M PLAIMG 14:42 | PROVIDERS: ATTEND Nurse Practitioner Family | DX: M41.9 Scoliosis, unspecified (principal) ==

== ENCOUNTER → 2023-05-08 | Outpatient (CLI) | payer MEDICARE, OTHER ==
[~2023-05-08] MED LIST changes: +AZEL1SPR3 NARES; +VIBE75TA PO
== END ==
LOC: M WHC 13:24
PROVIDERS: ATTEND Physician Assistant
DX: Z13.1 Encounter for screening for diabetes mellitus (principal)

== ENCOUNTER → 2023-06-05 | Outpatient (CLI) | payer MEDICARE, OTHER ==
[~2023-06-05] MED LIST changes: +E-Z-GAS II EFFERVESCENT PACKET (SODIUM BICARB./CITRIC ACID/SIMETHICONE) As Ordered ONE; +E-Z-HD 98% w/w 340GM SUSP BTL As Ordered ONE; +E-Z-PAQUE 96% w/w SUSP 176GM BTL As Ordered ONE
== END ==
LOC: M RAD 08:51
PROVIDERS: ATTEND Physician Assistant Medical
DX: R13.10 Dysphagia, unspecified (principal)

== ENCOUNTER → 2023-07-10 | Outpatient (CLI) | payer MEDICARE, OTHER ==
[~2023-07-10] MED LIST changes: -E-Z-GAS II EFFERVESCENT PACKET (SODIUM BICARB./CITRIC ACID/SIMETHICONE) As Ordered ONE; -E-Z-HD 98% w/w 340GM SUSP BTL As Ordered ONE; -E-Z-PAQUE 96% w/w SUSP 176GM BTL As Ordered ONE; +NORCO, ANEXSIA 5/325MG TABLET (HYDROcodone/ACETAMINOPHEN) As Ordered ONE; +TRIAMCINOLONE ACETONIDE SUSP 40MG/ML 1ML VIAL As Ordered ONE; +diazePAM 5MG TABLET As Ordered ONE
== END ==
LOC: M PAIN 10:15
PROVIDERS: ATTEND Anesthesiology
DX: M79.18 Myalgia, other site (principal); I10 Essential (primary) hypertension; N32.81 Overactive bladder; M85.80 Other specified disorders of bone density and structure, unspecified site; J45.909 Unspecified asthma, uncomplicated; I87.2 Venous insufficiency (chronic) (peripheral); M41.9 Scoliosis, unspecified; H81.10 Benign paroxysmal vertigo, unspecified ear; Z87.891 Personal history of nicotine dependence; Z79.899 Other long term (current) drug therapy; Z91.018 Allergy to other foods
CPT/HCPCS: 20552; J0665; J3301

== ENCOUNTER → 2023-08-07 | Outpatient (CLI) | payer MEDICARE, OTHER ==
[~2023-08-07] MED LIST changes: -FLUT50SP17; +FLUTISP; -NORCO, ANEXSIA 5/325MG TABLET (HYDROcodone/ACETAMINOPHEN) As Ordered ONE; -TRIAMCINOLONE ACETONIDE SUSP 40MG/ML 1ML VIAL As Ordered ONE; -diazePAM 5MG TABLET As Ordered ONE
== END ==
LOC: M PAIN 11:45
PROVIDERS: ATTEND Nurse Practitioner Family
DX: M41.9 Scoliosis, unspecified (principal); M79.18 Myalgia, other site; I10 Essential (primary) hypertension; N32.81 Overactive bladder; M85.80 Other specified disorders of bone density and structure, unspecified site; J45.909 Unspecified asthma, uncomplicated; I87.2 Venous insufficiency (chronic) (peripheral); Z87.891 Personal history of nicotine dependence; Z79.899 Other long term (current) drug therapy; Z91.018 Allergy to other foods

== ENCOUNTER → 2023-09-27 | Outpatient (CLI) | payer MEDICARE, OTHER | LOC: M RAD 13:12 | PROVIDERS: ATTEND Physician Assistant | DX: E04.9 Nontoxic goiter, unspecified (principal) ==

== ENCOUNTER → 2023-09-27 | Outpatient (CLI) | payer MEDICARE, OTHER ==
[2023-09-27 16:25] LABS: IRON (FE) 84 UG/DL (50-170); TOTAL IRON BINDING CAPACITY 323 UG/DL (250-425)
[2023-09-27 16:26] LABS: ALBUMIN 3.5 G/DL (3.2-5.2); ALKALINE PHOSPHATASE 74 U/L (46-116); ALT/SGPT 13 U/L (7.0-40); AST/SGOT 13 U/L (<34); BILIRUBIN,TOTAL 0.5 MG/DL (0.3-1.2); BLOOD UREA NITROGEN 19 MG/DL (9-23); CALCIUM LEVEL 8.8 MG/DL (8.3-10.6); CARBON DIOXIDE LEVEL 28 MMOL/L (20-31); CHLORIDE LEVEL 106 MMOL/L (98-107); CHOLESTEROL LEVEL 187 MG/DL (<200); CHOLESTEROL RISK RATIO 2.77 (<5); CREATININE FOR GFR 0.81 MG/DL (0.55-1.30); GLOMERULAR FILTRATION RATE > 60.0 (>32); GLUCOSE, FASTING 87 MG/DL (74-106); HDL CHOLESTEROL 67.4 MG/DL (>40); LDL CHOLESTEROL 106.2 MG/DL (<100); NON-HDL-C 119.6 MG/DL; POTASSIUM SERUM 3.9 MMOL/L (3.5-5.1); SODIUM LEVEL 140 MMOL/L (136-145); TRIGLYCERIDES LEVEL 67 MG/DL (<150)
[2023-09-27 16:27] LABS: BASO # 0.1 10^3/uL (0.0-0.2); BASO % 1.2 % (0.0-1.0); EOS # 0.2 10^3/uL (0.0-0.5); EOS % 2.5 % (0.0-3.0); FERRITIN 53.5 NG/ML (7.3-270.7); HEMATOCRIT 37.6 % (36.0-47.0); HEMOGLOBIN 12.3 g/dl (12.0-15.5); LYMPH # 1.6 10^3/uL (1.5-5.0); MEAN CORPUSCULAR HEMOGLOBIN 30.5 pg (27.0-33.0); MEAN CORPUSCULAR HGB CONC 32.7 g/dl (32.0-36.5); MEAN CORPUSCULAR VOLUME 93.3 fl (80.0-96.0); MONO # 0.5 10^3/uL (0.0-0.8); MONO % 7.5 % (2.0-8.0); NEUTROPHILS # 3.7 10^3/uL (1.5-8.5); NEUTROPHILS % 61.6 % (36.0-66.0); PLATELET COUNT, AUTOMATED 211 10^3/uL (150-450); RED BLOOD COUNT 4.03 10^6/uL (4.00-5.40); THYROID STIMULATING HORMONE 1.144 uIU/ML (0.55-4.78); TOTAL 25(OH) VITAMIN D 30.3 NG/ML (20.0-100.0); VITAMIN B12 LEVEL 435 PG/ML (211-911)
[2023-09-27 16:28] LABS: FREE T4 1.18 NG/DL (0.89-1.76)
== END ==
LOC: M PLALAB 11:37
PROVIDERS: ATTEND Physician Assistant
DX: E55.9 Vitamin D deficiency, unspecified (principal); I10 Essential (primary) hypertension; D50.9 Iron deficiency anemia, unspecified; Z13.220 Encounter for screening for lipoid disorders; E04.9 Nontoxic goiter, unspecified

== ENCOUNTER → 2023-09-28 | Outpatient (CLI) | payer MEDICARE, OTHER | LOC: M PAIN 11:45 | PROVIDERS: ATTEND Nurse Practitioner Family | DX: M79.18 Myalgia, other site (principal); G89.29 Other chronic pain; I10 Essential (primary) hypertension; N32.81 Overactive bladder; M85.80 Other specified disorders of bone density and structure, unspecified site; J45.909 Unspecified asthma, uncomplicated; Z87.891 Personal history of nicotine dependence; Z79.899 Other long term (current) drug therapy; Z91.048 Other nonmedicinal substance allergy status ==

== ENCOUNTER → 2023-11-26 | Outpatient (REF) | payer MEDICARE, OTHER | LOC: M LAB REF 14:58 | PROVIDERS: ATTEND Internal Medicine Endocrinology, Diabetes & Metabolism | DX: E04.1 Nontoxic single thyroid nodule (principal) ==

== ENCOUNTER → 2023-11-30 | Outpatient (CLI) | payer MEDICARE, OTHER ==
[~2023-11-30] MED LIST changes: +NORCO, ANEXSIA 5/325MG TABLET (HYDROcodone/ACETAMINOPHEN) As Ordered ONE; +TRIAMCINOLONE ACETONIDE SUSP 40MG/ML 1ML VIAL As Ordered ONE; +diazePAM 5MG TABLET As Ordered ONE
== END ==
LOC: M PAIN 12:45
PROVIDERS: ATTEND Anesthesiology
DX: M79.18 Myalgia, other site (principal); I10 Essential (primary) hypertension; J45.909 Unspecified asthma, uncomplicated; Z87.891 Personal history of nicotine dependence; Z79.899 Other long term (current) drug therapy; Z91.048 Other nonmedicinal substance allergy status
CPT/HCPCS: 20552; J0665; J3301

== ENCOUNTER → 2024-02-05 | Outpatient (CLI) | payer MEDICARE, OTHER ==
[~2024-02-05] MED LIST changes: -NORCO, ANEXSIA 5/325MG TABLET (HYDROcodone/ACETAMINOPHEN) As Ordered ONE; -TRIAMCINOLONE ACETONIDE SUSP 40MG/ML 1ML VIAL As Ordered ONE; -diazePAM 5MG TABLET As Ordered ONE
== END ==
LOC: M PAIN 14:45
PROVIDERS: ATTEND Nurse Practitioner Family
DX: M41.9 Scoliosis, unspecified (principal); M79.18 Myalgia, other site; G89.29 Other chronic pain; I10 Essential (primary) hypertension; N32.81 Overactive bladder; M85.80 Other specified disorders of bone density and structure, unspecified site; J45.909 Unspecified asthma, uncomplicated; I87.2 Venous insufficiency (chronic) (peripheral); Z87.891 Personal history of nicotine dependence; Z79.899 Other long term (current) drug therapy; Z91.048 Other nonmedicinal substance allergy status

== ENCOUNTER → 2024-02-22 | Outpatient (REF) | payer MEDICARE, OTHER ==
[2024-02-22 18:47] LABS: APPEARANCE, URINE CLOUDY (CLEAR); BACTERIA, URINE AUTO 2+ (NEGATIVE); BILIRUBIN, URINE AUTO NEGATIVE (NEGATIVE); BLOOD, URINE BLOOD 2+ (NEGATIVE); COLOR, URINE YELLOW (YELLOW); GLUCOSE, URINE (UA) AUTO NEGATIVE (NEGATIVE); KETONE, URINE AUTO NEGATIVE (NEGATIVE); LEUKOCYTE ESTERASE, URINE AUTO 3+ (NEGATIVE); MUCUS, URINE SMALL (NEGATIVE); NITRITE, URINE AUTO NEGATIVE (NEGATIVE); PROTEIN, URINE AUTO 1+ mg/dL (NEGATIVE); RBC, URINE AUTO 16 /HPF (0-3); SPECIFIC GRAVITY URINE AUTO 1.015 (1.002-1.035); SQUAMOUS EPITHELIAL CELL UR AU 1 /HPF (0-6); TRANSITIONAL EPITHELIAL AUTO 2 /HPF; UROBILINOGEN, URINE AUTO 0.2 mg/dL (0.0-2.0); WBC, URINE AUTO TNTC /HPF (0-3)
== END ==
LOC: M SFHCPLAZ 16:49
PROVIDERS: ATTEND Physician Assistant
DX: R30.0 Dysuria (principal)

== ENCOUNTER → 2024-03-12 | Outpatient (CLI) | payer MEDICARE, OTHER | LOC: M PLAIMG 10:33 | PROVIDERS: ATTEND Physician Assistant | DX: R10.84 Generalized abdominal pain (principal); R14.0 Abdominal distension (gaseous) ==

== ENCOUNTER → 2024-03-21 | Outpatient (CLI) | payer MEDICARE, OTHER | LOC: M PAIN 14:00 | PROVIDERS: ATTEND Nurse Practitioner Family | DX: M41.9 Scoliosis, unspecified (principal); M79.10 Myalgia, unspecified site; G89.29 Other chronic pain; I10 Essential (primary) hypertension; N32.81 Overactive bladder; M85.80 Other specified disorders of bone density and structure, unspecified site; J45.909 Unspecified asthma, uncomplicated; I87.2 Venous insufficiency (chronic) (peripheral); Z87.891 Personal history of nicotine dependence; Z79.899 Other long term (current) drug therapy; Z91.048 Other nonmedicinal substance allergy status ==

== ENCOUNTER → 2024-04-15 | Outpatient (REF) | payer MEDICARE, OTHER | LOC: M LAB REF 15:00 | PROVIDERS: ATTEND Internal Medicine Endocrinology, Diabetes & Metabolism | DX: E04.1 Nontoxic single thyroid nodule (principal) ==

== ENCOUNTER → 2024-05-14 | Outpatient (CLI) | payer MEDICARE, OTHER | LOC: M WHC 13:40 | PROVIDERS: ATTEND Physician Assistant | DX: Z12.31 Encounter for screening mammogram for malignant neoplasm of breast (principal) ==

== ENCOUNTER → 2024-05-19 | Outpatient (REF) | payer MEDICARE, OTHER ==
[2024-05-19 18:41] LABS: AMORPHOUS SEDIMENT SMALL (NEGATIVE); APPEARANCE, URINE TURBID (CLEAR); BACTERIA, URINE AUTO 1+ (NEGATIVE); BILIRUBIN, URINE AUTO NEGATIVE (NEGATIVE); BLOOD, URINE BLOOD 1+ (NEGATIVE); COLOR, URINE AMBER (YELLOW); GLUCOSE, URINE (UA) AUTO NEGATIVE (NEGATIVE); KETONE, URINE AUTO NEGATIVE (NEGATIVE); LEUKOCYTE ESTERASE, URINE AUTO 3+ (NEGATIVE); MUCUS, URINE SMALL (NEGATIVE); NITRITE, URINE AUTO POSITIVE (NEGATIVE); PROTEIN, URINE AUTO 1+ mg/dL (NEGATIVE); RBC, URINE AUTO 35 /HPF (0-3); SPECIFIC GRAVITY URINE AUTO 1.016 (1.002-1.035); SQUAMOUS EPITHELIAL CELL UR AU 2 /HPF (0-6); UROBILINOGEN, URINE AUTO 0.2 mg/dL (0.0-2.0); WBC, URINE AUTO TNTC /HPF (0-3)
== END ==
LOC: M SMT 17:00
PROVIDERS: ATTEND Specialist
DX: N39.41 Urge incontinence (principal)

== ENCOUNTER → 2024-07-07 | Outpatient (CLI) | payer MEDICARE, OTHER | LOC: M PAIN 11:30 | PROVIDERS: ATTEND Nurse Practitioner Family | DX: M41.9 Scoliosis, unspecified (principal); M79.10 Myalgia, unspecified site; G89.29 Other chronic pain; I10 Essential (primary) hypertension; N32.81 Overactive bladder; M85.80 Other specified disorders of bone density and structure, unspecified site; I87.2 Venous insufficiency (chronic) (peripheral); J45.909 Unspecified asthma, uncomplicated; Z87.891 Personal history of nicotine dependence; Z79.899 Other long term (current) drug therapy ==

== ENCOUNTER → 2024-09-04 | Outpatient (REF) | payer MEDICARE, OTHER | LOC: M SFHCPLAZ 20:47 | DX: I10 Essential (primary) hypertension (principal); E55.9 Vitamin D deficiency, unspecified; E04.2 Nontoxic multinodular goiter ==

== ENCOUNTER → 2024-09-17 | Outpatient (CLI) | payer MEDICARE, OTHER ==
[2024-09-17 14:01] LABS: HEMATOCRIT 38.3 % (36.0-47.0); HEMOGLOBIN 12.6 g/dl (12.0-15.5); MEAN CORPUSCULAR HEMOGLOBIN 30.4 pg (27.0-33.0); MEAN CORPUSCULAR HGB CONC 32.9 g/dl (32.0-36.5); MEAN CORPUSCULAR VOLUME 92.5 fl (80.0-96.0); PLATELET COUNT, AUTOMATED 220 10^3/uL (150-450); RED BLOOD COUNT 4.14 10^6/uL (4.00-5.40); WHITE BLOOD COUNT 5.8 10^3/uL (4.0-10.0)
[2024-09-17 16:24] LABS: TOTAL 25(OH) VITAMIN D 27.8 NG/ML (20.0-100.0)
[2024-09-17 16:25] LABS: THYROID STIMULATING HORMONE 1.518 uIU/ML (0.55-4.78)
[2024-09-17 16:27] LABS: ALBUMIN 3.7 G/DL (3.2-5.2); ALKALINE PHOSPHATASE 89 U/L (35-104); ALT/SGPT 14 U/L (7.0-40); AST/SGOT 14 U/L (<34); BILIRUBIN,TOTAL 0.3 MG/DL (0.3-1.2); BLOOD UREA NITROGEN 25 MG/DL (9-23); CALCIUM LEVEL 9.4 MG/DL (8.3-10.6); CARBON DIOXIDE LEVEL 28 MMOL/L (20-31); CHLORIDE LEVEL 109 MMOL/L (98-107); CREATININE FOR GFR 0.86 MG/DL (0.55-1.30); FREE T4 1.17 NG/DL (0.89-1.76); GLOMERULAR FILTRATION RATE > 60.0 (>32); GLUCOSE, FASTING 82 MG/DL (74-106); POTASSIUM SERUM 4.1 MMOL/L (3.5-5.1); SODIUM LEVEL 141 MMOL/L (136-145); TOTAL PROTEIN 7.1 G/DL (5.7-8.2)
== END ==
LOC: M PLALAB 10:37
DX: I10 Essential (primary) hypertension (principal); E55.9 Vitamin D deficiency, unspecified; E04.2 Nontoxic multinodular goiter

== ENCOUNTER → 2024-10-03 | Outpatient (REF) | payer MEDICARE, OTHER ==
[2024-10-03 18:34] LABS: APPEARANCE, URINE TURBID (CLEAR); BACTERIA, URINE AUTO 1+ (NEGATIVE); BILIRUBIN, URINE AUTO NEGATIVE (NEGATIVE); BLOOD, URINE BLOOD 2+ (NEGATIVE); COLOR, URINE AMBER (YELLOW); GLUCOSE, URINE (UA) AUTO NEGATIVE (NEGATIVE); KETONE, URINE AUTO NEGATIVE (NEGATIVE); LEUKOCYTE ESTERASE, URINE AUTO 1+ (NEGATIVE); MUCUS, URINE SMALL (NEGATIVE); NITRITE, URINE AUTO POSITIVE (NEGATIVE); PROTEIN, URINE AUTO 2+ mg/dL (NEGATIVE); RBC, URINE AUTO 54 /HPF (0-3); SPECIFIC GRAVITY URINE AUTO 1.014 (1.002-1.035); SQUAMOUS EPITHELIAL CELL UR AU 0 /HPF (0-6); TRANSITIONAL EPITHELIAL AUTO 2 /HPF; WBC, URINE AUTO TNTC /HPF (0-3)
== END ==
LOC: M SMT 17:27
PROVIDERS: ATTEND Specialist
DX: N39.0 Urinary tract infection, site not specified (principal)

== ENCOUNTER → 2025-03-06 | Outpatient (CLI) | payer MEDICARE, OTHER ==
[2025-03-06 16:42] LABS: PLATELET COUNT, AUTOMATED 219 10^3/uL (150-450)
[2025-03-06 17:12] LABS: ALT/SGPT 12.0 U/L (7.0-40); AST/SGOT 19.0 U/L (<34); CALCIUM LEVEL 9.4 MG/DL (8.3-10.6); CARBON DIOXIDE LEVEL 27.0 MMOL/L (20-31); CHLORIDE LEVEL 102.0 MMOL/L (98-107); CHOLESTEROL LEVEL 191.0 MG/DL (<200); CHOLESTEROL RISK RATIO 3.1 (<5); CREATININE FOR GFR 1.24 MG/DL (0.55-1.30); GLOMERULAR FILTRATION RATE 42.1 (>32); LDL CHOLESTEROL 104.7 MG/DL (<100); NON-HDL-C 129.5 MG/DL; POTASSIUM SERUM 4.8 MMOL/L (3.5-5.1); SODIUM LEVEL 142.0 MMOL/L (136-145); TRIGLYCERIDES LEVEL 124.0 MG/DL (<150)
[2025-03-06 17:14] LABS: FREE T4 1.25 NG/DL (0.89-1.76)
== END ==
LOC: M PLALAB 13:50
DX: N39.0 Urinary tract infection, site not specified (principal); E04.2 Nontoxic multinodular goiter; D50.9 Iron deficiency anemia, unspecified; I10 Essential (primary) hypertension; Z13.220 Encounter for screening for lipoid disorders

== ENCOUNTER → 2025-05-18 | Outpatient (CLI) | payer MEDICARE, OTHER ==
[~2025-05-18] MED LIST changes: -VERA180C3 PO; +VERA180C5 PO
== END ==
LOC: M RAD 12:33
PROVIDERS: ATTEND Nurse Practitioner Family
DX: E04.1 Nontoxic single thyroid nodule (principal)